=== PATIENT | female | born 1985 | race Caucasian/White ===

== ENCOUNTER 2019-11-08 18:44 | Emergency (ER) | payer OTHER, SELFPAY ==
--- NOTE | ~2019-11-08 | XR_ITS ---
EXAMINATION: XR chest 2V DATE: 11/08/2019 18:54 INDICATION: Cough and shortness of breath TECHNIQUE: PA and lateral views of the chest are obtained. COMPARISON: 12/20/2018 FINDINGS: There are minimal airspace opacities of the lung bases. There is no pleural effusion or pne umothorax. The cardiomediastinal silhouette is normal. The visualized bones and soft tissues are unre markable. IMPRESSION: 1. Mild bibasilar airspace opacity, consistent with atelectasis versus pneumonia. Reviewed, dictated and finalized at location A. IMPRESSION: 1. Mild bibasilar airspace opacity, consistent with atelectasis versus pneumoni a.
[2019-11-08 19:02] VITALS: BP 133/88; PULSE 92; RESP 20; TEMP 37.8; O2SAT 97
--- NOTE | 2019-11-08 19:24 | ED.URI ---
HPI - URI/Sore Throat General Chief Complaint: Upper Respiratory Infection Stated Complaint: sob Time Seen by Provider: 11/08/19 19:05 Source: patient and RN notes reviewed Mode of arrival: ambulatory Limitations: no limitations History of Present Illness HPI Narrative: Patient presents today with a 5-day history of mild cough, chest discomfort, shortness of breath. Her main complaint is shortness of breath that seems to worsen at night. She denies a fever and states she has been checking it twice daily. Temp upon arrival was 100.1. She believed that her shortness of breath may be linked to anxiety, but wanted to come in and get checked because it has been persistent. She reports history of asthma in the past, but states she has not had to use an inhaler for approximately 6 years, until recently. History of pneumonia in the past. She has not been trying any [id number] medications prior to arrival. Patient works for an [employer] and states she has been attending work daily. Reports they are evaluating for shortness of breath/fever when she goes to work, but she has not been telling anyone that she has been short of breath because she thought her symptoms were due to anxiety. MD elicited complaint: cough and other (Shortness of breath) Related Data Home Medications Medication Instructions Recorded Confirmed albuterol sulfate 1 inh INHALATION QID PRN 11/08/19 11/08/19 omeprazole 20 mg PO DAILY 11/08/19 11/08/19 Allergies Allergy/AdvReac Type Severity Reaction Status Date / Time Penicillins Allergy Unknown Hives Verified 11/08/19 19:00 Review of Systems Review of Systems: Narrative: CONSTITUTIONAL: Denies fever, chills, or sweats.+ Body aches EYES: Denies visual changes, redness, or discharge. ENT: Denies rhinorrhea, congestion, sore throat, or otalgia. CARDIOVASCULAR: Denies chest pain, palpitations, or edema. RESPIRATORY: + Mild cough, shortness of breath, chest wall pain. GASTROINTESTINAL: Denies abdominal pain, nausea, vomiting, or diarrhea. GENITOURINARY: Denies dysuria or hematuria. SKIN: Denies rash, itching, or wounds. MUSCULOSKELETAL: Denies back pain, joint pain, or myalgia. NEUROLOGIC: Denies headache, numbness, tingling, or weakness. PSYCH: Denies depression or anxiety. PMFSH Comments At time of signature, I have reviewed and agree with nursing past medical, surgical, social and family history unless otherwise noted. Please see nursing chart for further information. There is no relevant family history pertinent to the presenting complaint Exam Narrative: Exam Narrative: GENERAL: Well-appearing, well-nourished, and in no acute distress. HEAD: Normocephalic, atraumatic. EYES: EOMI. No redness or drainage. Conjunctivae normal. ENT: Mucous membranes pink and moist. Nares clear. No rhinorrhea. TMs normal bilaterally. Throat normal. Uvula midline. NECK: Normal AROM. Supple. No lymphadenopathy. CHEST: No respiratory distress. Mildly diminished in the bilateral bases. Patient's breathing is comfortable and she is able to speak in complete sentences for extended periods of time without distress. Chest is nontender. HEART: Regular rate and rhythm. No murmur appreciated. Normal peripheral pulses. MUSCULOSKELETAL: No bony tenderness. EXTREMITIES: Normal range of motion. No edema. SKIN: Warm, dry, no rash. Capillary refill normal. Normal skin turgor. NEURO: No focal deficits. Alert and oriented x3. Gait steady. PSYCH: Anxious and tearful. Course Vital Signs Vital signs: Vital Signs Temperature 100.1 F H 11/08/19 19:02 Pulse Rate 92 11/08/19 19:02 Respiratory Rate 11/08/19 19:02 Blood Pressure 133/88 11/08/19 19:02 Pulse Oximetry 97 11/08/19 19:02 Temperature 100.1 F H 11/08/19 19:02 Pulse Rate 92 11/08/19 19:02 Respiratory Rate 20 11/08/19 19:02 Blood Pressure 133/88 11/08/19 19:02 Pulse Oximetry 97 11/08/19 19:02 Reviewed. Pt has been instructed t
== END 2019-11-08 19:35 | disposition home or self-care (01) ==
PROVIDERS: Emergency Provider Nurse Practitioner
DX: J18.1 Lobar pneumonia, unspecified organism (principal); J45.909 Unspecified asthma, uncomplicated; K21.9 Gastro-esophageal reflux disease without esophagitis
CPT/HCPCS: 71046; 99213; G0463

== ENCOUNTER 2019-11-09 11:44 | Outpatient (NON) | payer OTHER, SELFPAY ==
[2019-11-10 22:44] LABS: Pan-SARS RNA: NEGATIVE (NEGATIVE); SARS-CoV-2 RNA: NEGATIVE (NEGATIVE)
== END 2019-11-09 11:45 ==
PROVIDERS: Visit Provider Nurse Practitioner
DX: R09.89 Other specified symptoms and signs involving the circulatory and respiratory systems (principal)
CPT/HCPCS: 87635; U0002

== ENCOUNTER 2020-03-06 03:45 | Emergency (ER) | payer OTHER, SELFPAY ==
--- NOTE | ~2020-03-06 | XR_ITS ---
EXAMINATION: XR chest 1V portable INDICATION: Fever and shortness of breath TECHNIQUE: Portable AP chest at 0431 hours COMPARISON: 11/08/2019 FINDINGS: There are minimal airspace opacities of the right lung base. No pleural effusion or pneumot horax identified. The cardiomediastinal silhouette is normal. IMPRESSION: 1. Minimal right basilar airspace opacity, consistent with atelectasis versus pneumonia. Reviewed, dictated and finalized at location A. IMPRESSION: 1. Minimal right basilar airspace opacity, consistent with atelectasis versus p neumonia.
[2020-03-06 03:49] VITALS: BP 130/65; PULSE 129; RESP 20; TEMP 38.1; O2SAT 98
--- NOTE | 2020-03-06 04:04 | ECG_ITS ---
Measurements Intervals [place] Rate: 116 P: 75 WI: 138 QRS: 54 QRSD: 91 T: 12 QT: 347 QTc: 483 Interpretive Statements SINUS TACHYCARDIA BORDERLINE ST ABNORMALITY- ANTEROLAT/INF LEADS BASELINE ARTIFACT- I, II ABNORMAL ECG Electronically Signed On 03-06-2020 9:59:26 CDT by Darrel Bernstein D.O.
[2020-03-06 04:14] VITALS: RESP 17; O2SAT 98
[2020-03-06 04:30] LABS: Basophils Percent Auto 0.6 % (0.2-1.2); Eosinophils Percent Auto 0.2 % (0-4.4); Hematocrit 31.8 % (37.0-47.0); Hemoglobin 10.4 g/dL (12.0-15.0); Immature Granulocyte Absolute 0.02 K/mm3 (0.00-0.031); Immature Granulocyte Percent A 0.4 % (0-0.5); Lymphocytes Absolute Auto 0.27 K/mm3 (0.9-3.2); Lymphocytes Percent Auto 5.2 % (18.3-44.2); Mean Corpuscular HGB Conc 32.7 g/dl (32-36); Mean Corpuscular Hemoglobin 28.9 pg (26-34); Mean Corpuscular Volume 88.3 fl (80-100); Mean Platelet Volume 10.1 fl (7.4-10.4); Monocytes Absolute Auto 0.4 K/mm3 (0.1-0.6); Monocytes Percent Auto 8.1 % (2.6-8.5); Neutrophils Absolute Auto 4.4 K/mm3 (1.3-6.7); Neutrophils Percent Auto 85.5 % (45.5-73.1); Platelet Count Result 219 k/mm3 (150-375); Red Cell Distribution Width 14.4 % (11.5-14.5); White Blood Count 5.2 K/mm3 (4.5-10.0)
[2020-03-06 04:42] LABS: Anion Gap 11.3 mmol/L (7-16); Blood Urea Nitrogen 9 mg/dL (7-17); Calcium 8.8 mg/dL (8.4-10.2); Carbon Dioxide 22 mmol/L (22-30); Chloride 106 mmol/L (98-107); Estimated CRCL calculation 117 ml/min; Estimated Glomerular Filt Rate > 60; Glucose 116 mg/dL (65-105); Potassium 3.3 mmol/L (3.4-5.0); Sodium 136 mmol/L (137-145)
[2020-03-06 05:28] VITALS: BP 99/58; PULSE 97; RESP 15; TEMP 37.4; O2SAT 96
--- NOTE | 2020-03-06 05:40 | ED.FEVER ---
HPI - Fever General Chief Complaint: Fever Stated Complaint: fever Time Seen by Provider: 03/06/20 05:30 History of Present Illness HPI Narrative: Patient presents with fever and cough for 2 days. 2 months ago she had bilateral pneumonia. She has a history of asthma. She has a new inhaler. Her cough is not productive. She said her fever was 105, but the record says 100.5. She has some shortness of breath with this. 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 She does not smoke cigarettes, drink alcohol, or do drug. Surgical history of tubal ligation. MD elicited complaint: fever Pertinent past history: other (Recent pneumonia) Onset (ago): day(s) Exacerbating factors: nothing Relieving factors: nothing Associated symptoms: myalgias and shortness of breath Treatments prior to arrival fever: none Related Data Home Medications Medication Instructions Recorded Confirmed albuterol sulfate 1 inh INHALATION QID PRN 11/08/19 11/08/19 omeprazole 20 mg PO DAILY 11/08/19 11/08/19 Allergies Allergy/AdvReac Type Severity Reaction Status Date / Time Penicillins Allergy Unknown Hives Verified 03/06/20 03:51 Review of Systems Review of Systems: Narrative: CONSTITUTIONAL: Denies fever, chills, or sweats. EYES: Denies visual changes, redness, or discharge. ENT: Denies rhinorrhea, congestion, sore throat, or otalgia. CARDIOVASCULAR: Denies chest pain, palpitations, or edema. RESPIRAtory: She has cough and dyspnea. GASTROINTESTINAL: Denies abdominal pain, nausea, vomiting, or diarrhea. GENITOURINARY: Denies dysuria or hematuria. SKIN: Denies rash or itching. MUSCULOSKELETAL: Denies back pain, joint pain, but she does have myalgia. NEUROLOGIC: Denies headache, numbness, or weakness. . All systems reviewed & are unremarkable except as noted in HPI and below PMFSH Past Medical History Medical History Pneumonia Surgical History Surgical History (Updated 03/06/20 @ 05:43 by Antonette Yuan MD) History of tubal ligation Social History Social History (Updated 03/06/20 @ 05:43 by Antonette Yuan MD) Smoking status: Never smoker Alcohol intake: never Substance use: never Exam Narrative: Exam Narrative: GENERAL: Well-appearing, well-nourished, and in no acute distress. HEAD: Normocephalic, atraumatic. EYES: PERRLA and EOMI. ENT: Nares clear, no rhinorrhea or epistaxis. Mucous membranes moist. NECK: Supple. CHEST: Clear to auscultation. No respiratory distress. No wheezes HEART: Regular rate and rhythm. No murmur heard. Normal peripheral pulses. ABDOMEN: Soft, nontender, nondistended, normal active bowel sounds. EXTREMITIES: Normal range of motion. No edema. SKIN: Warm, dry, no rash. NEURO: No focal deficits. Alert and oriented x3. PSYCH: Normal mood and affect. Course Vital Signs Vital signs: Vital Signs Temperature 100.5 F H 03/06/20 03:49 Pulse Rate 129 H 03/06/20 03:49 Respiratory Rate 20 03/06/20 03:49 Blood Pressure 130/65 03/06/20 03:49 Pulse Oximetry 98 03/06/20 03:49 Temperature 99.3 F 03/06/20 05:28 Pulse Rate 97 03/06/20 05:28 Respiratory Rate 15 03/06/20 05:28 Blood Pressure 99/58 L 03/06/20 05:28 Pulse Oximetry 96 03/06/20 05:28 MDM - Fever Differential Diagnosis Differential diagnosis: Likely other (Pneumonia) Medical Records Attestation: I reviewed the patient's medical records. Lab Data Attestation: I reviewed the patient's lab results. Result diagrams: 03/06/20 04:10 03/06/20 04:10 Labs: Lab Results 03/06/20 03/06/20 Range/Units 04:10 04:10 WBC 5.2 (4.5-10.0) K/mm3 RBC 3.60 L (4.2-5.4) M/mm3 Hgb 10.4 L (12.0-15.0) g/dL Hct 31.8 L (37.0-47.0) % MCV 88.3 (80-100) fl MCH 28.9 (26-34) pg MCHC 32.7 (32-36) g/dl RDW 14.4 (11.5-14.5) % Plt Count 219 (150-375) k/mm3 MPV 10.1 (7.4-10.4) fl Immature Gran % (Auto) 0.4 (0-0.5)
[2020-03-06 05:54] VITALS: BP 102/95; PULSE 100; RESP 23; TEMP 37.2; O2SAT 94
== END 2020-03-06 05:55 | disposition home or self-care (01) ==
PROVIDERS: Emergency Provider Emergency Medicine
DX: J18.9 Pneumonia, unspecified organism (principal)
CPT/HCPCS: 36415; 71045; 80048; 85025; 87804; 93005; 99283; A9270

== ENCOUNTER 2020-03-09 15:03 | Emergency (ER) | payer OTHER, SELFPAY ==
--- NOTE | ~2020-03-09 | XR_ITS ---
EXAMINATION: XR chest 1V portable INDICATION: Shortness of breath and cough, COVID 19 positive TECHNIQUE: Portable AP chest at 1551 hours COMPARISON: 03/06/2020 FINDINGS: Right basilar airspace opacities persist without significant change. Minimal left basilar a irspace opacity is developed. There is no pleural effusion or pneumothorax. The cardiomediastinal naty houette is normal. IMPRESSION: 1. Bibasilar airspace opacities, likely COVID 19 pneumonia given clinical history. Reviewed, dictated and finalized at location B. IMPRESSION: 1. Bibasilar airspace opacities, likely COVID 19 pneumonia given clinical histo ry.
[2020-03-09 15:11] VITALS: BP 128/83; PULSE 99; RESP 20; TEMP 37.8; O2SAT 100
[2020-03-09 15:17] VITALS: PULSE 100
--- NOTE | 2020-03-09 15:17 | ECG_ITS ---
Measurements Intervals [place] Rate: 93 P: 69 ND: 136 QRS: 44 QRSD: 83 T: 23 QT: 338 QTc: 421 Interpretive Statements SINUS RHYTHM BORDERLINE ST-T WAVE ABNORMALITY- INFERIOR LEADS BASELINE ARTIFACT- I, II, AVR, AVL, V4-V6 BORDERLINE ECG Electronically Signed On 03-09-2020 15:50:57 CDT by Darrel Bernstein D.O.
[2020-03-09 15:46] LABS: Basophils Percent Auto 0.5 % (0.2-1.2); Hematocrit 34.8 % (37.0-47.0); Hemoglobin 11.1 g/dL (12.0-15.0); Immature Granulocyte Absolute 0.01 K/mm3 (0.00-0.031); Immature Granulocyte Percent A 0.2 % (0-0.5); Lymphocytes Percent Auto 16.5 % (18.3-44.2); Mean Corpuscular HGB Conc 31.9 g/dl (32-36); Mean Corpuscular Hemoglobin 28.8 pg (26-34); Mean Corpuscular Volume 90.2 fl (80-100); Mean Platelet Volume 9.6 fl (7.4-10.4); Monocytes Absolute Auto 0.2 K/mm3 (0.1-0.6); Monocytes Percent Auto 5.4 % (2.6-8.5); Neutrophils Absolute Auto 3.3 K/mm3 (1.3-6.7); Neutrophils Percent Auto 77.4 % (45.5-73.1); Platelet Count Result 238 k/mm3 (150-375); Red Blood Count 3.86 M/mm3 (4.2-5.4); Red Cell Distribution Width 14.8 % (11.5-14.5); White Blood Count 4.2 K/mm3 (4.5-10.0)
[2020-03-09 15:59] LABS: D Dimer 1.05 ug/mL (<0.48)
[2020-03-09 16:02] LABS: Alanine Aminotransferase 23 U/L (4-35); Albumin Level 4.2 g/dL (3.5-5.1); Alkaline Phosphatase 38 U/L (38-126); Anion Gap 10 mmol/L (8-16); Aspartate Amino Transferase 25 U/L (14-36); Bilirubin,Total 0.3 mg/dL (0.2-1.3); Blood Urea Nitrogen 7 mg/dL (7-17); CRP 0.7 mg/dL (<1.0); Calcium 8.4 mg/dL (8.4-10.2); Carbon Dioxide 24 mmol/L (22-30); Chloride 104 mmol/L (98-107); Estimated CRCL calculation 116 ml/min; Estimated Glomerular Filt Rate > 60; Glucose 84 mg/dL (65-105); Potassium 3.8 mmol/L (3.4-5.0); Sodium 138 mmol/L (137-145)
--- NOTE | 2020-03-09 16:39 | ED.SOB ---
HPI - SOB/Dyspnea General Chief Complaint: Shortness of Breath/Dyspnea Stated Complaint: SOB, Positive COVID Time Seen by Provider: 03/09/20 15:06 History of Present Illness HPI Narrative: Patient is a 34-year-old female who presents the ER with cough and shortness of breath. Patient was diagnosed with pneumonia several days ago and started on azithromycin. Subsequently she was tested for COVID-19 and tested positive. She received results today. Doctor's office thought that she was coughing frequently and wanted her to be evaluated in the ER. Patient has been using her albuterol at home. No chest pain or chest pressure. No loss of consciousness. Patient reports exertional fatigue and shortness of breath. Related Data Home Medications Medication Instructions Recorded Confirmed albuterol sulfate 1 inh INHALATION QID PRN 11/08/19 11/08/19 omeprazole 20 mg PO DAILY 11/08/19 11/08/19 Allergies Allergy/AdvReac Type Severity Reaction Status Date / Time Penicillins Allergy Unknown Hives Verified 03/09/20 15:18 Review of Systems Review of Systems: All systems reviewed & are unremarkable except as noted in HPI and below Constitutional: Constitutional: Reports chills, Reports fatigue, Reports fever(s) and Reports weakness Cardiovascular: Cardiovascular: Denies chest pain and Denies radiating jaw, neck or arm pain Respiratory: Respiratory: Reports chest congestion, Reports cough, Reports dyspnea and Denies wheezing Gastrointestinal: Gastrointestinal: Denies abdominal pain, Denies nausea and Denies vomiting PMFSH Past Medical History Medical History (Updated 03/09/20 @ 17:13 by Venancio Schaffer MD) Asthma Pneumonia Surgical History Surgical History (Updated 03/06/20 @ 05:43 by Antonette Yuan MD) History of tubal ligation Social History Social History (Updated 03/06/20 @ 05:43 by Antonette Yuan MD) Smoking status: Never smoker Alcohol intake: never Substance use: never Gender identity (if verbalized by the patient): Female Exam Narrative: Exam Narrative: GENERAL: Uncomfortable-appearing, well-nourished, and in no acute distress. HEAD: Normocephalic, atraumatic. ENT: Mucous membranes moist. CHEST: Clear to auscultation. Frequent coughing. HEART: Regular rate and rhythm. Normal peripheral pulses. ABDOMEN: Soft, nontender, nondistended. EXTREMITIES: Normal range of motion. No edema. NEURO: Alert and oriented x3. PSYCH: Normal mood and affect. Course Course Emergency Course: D-dimer elevated which is expected as an inflammatory marker and cover pneumonia. Otherwise labs unremarkable. Patient without hypoxia when exerting herself in the room jogging. Discharge home. Vital Signs Vital signs: Vital Signs Temperature 100.1 F H 03/09/20 15:11 Pulse Rate 99 03/09/20 15:11 Respiratory Rate 20 03/09/20 15:11 Blood Pressure 128/83 03/09/20 15:11 Pulse Oximetry 100 03/09/20 15:11 Temperature 100.1 F H 03/09/20 15:11 Pulse Rate 75 03/09/20 17:01 Respiratory Rate 18 03/09/20 17:01 Blood Pressure 128/84 03/09/20 17:01 Pulse Oximetry 100 03/09/20 17:01 MDM - SOB/Dyspnea Lab Data Result diagrams: 03/09/20 15:39 03/09/20 15:39 Labs: Lab Results 03/09/20 03/09/20 03/09/20 Range/Units 15:39 15:39 15:39 WBC 4.2 L (4.5-10.0) K/mm3 RBC 3.86 L (4.2-5.4) M/mm3 Hgb 11.1 L (12.0-15.0) g/dL Hct 34.8 L (37.0-47.0) % MCV 90.2 (80-100) fl MCH 28.8 (26-34) pg MCHC 31.9 L (32-36) g/dl RDW 14.8 H (11.5-14.5) % Plt Count 238 (150-375) k/mm3 MPV 9.6 (7.4-10.4) fl Immature Gran % (Auto) 0.2 (0-0.5) % Neut % (Auto) 77.4 H (45.5-73.1) % Lymph % (Auto) 16.5 L (18.3-44.2) % [place] % (Auto) 5.4 (2.6-8.5) % Eos % (Auto) 0.0 (0-4.4) % Baso % (Auto) 0.5 (0.2-1.2) % Lymph # (Auto) 0.70 L (0.9-3.2) K/mm3 [place] # (Auto) 0.2 (0.1-0.6) K/mm3 Eos # (Auto) 0.0 (0
[2020-03-09 17:01] VITALS: BP 128/84; PULSE 75; RESP 18; O2SAT 100
[2020-03-09 17:31] VITALS: BP 123/86; PULSE 96; RESP 22; O2SAT 97
== END 2020-03-09 17:33 | disposition home or self-care (01) ==
PROVIDERS: Emergency Provider Emergency Medicine
DX: U07.1 COVID-19 (principal); J12.89 Other viral pneumonia; J45.909 Unspecified asthma, uncomplicated; R94.31 Abnormal electrocardiogram [ECG] [EKG]
CPT/HCPCS: 36415; 71045; 80053; 83605; 85025; 85380; 86140; 93005; 99283

== ENCOUNTER 2020-04-03 11:52 | Outpatient (CLI) | payer OTHER, SELFPAY ==
--- NOTE | ~2020-04-03 | CT_ITS ---
EXAMINATION: CTA chest PE protocol DATE: 04/03/2020 12:41 INDICATION: Shortness of breath. TECHNIQUE: Computed tomography angiography (CTA) of the chest was performed with 100 mL Omnipaque-350 intravenous contrast timed to evaluate the pulmonary arteries. Coronal maximum intensity projection 3D-reconstructions were created by the technologist. Automated exposure control and iterative reconst ruction technique were employed. The dose-length product was 354.83 mGy-cm. COMPARISON: None. FINDINGS: There are mild groundglass opacities in the lower lobes. No pleural effusion. The heart siz e is normal. No pericardial effusion. There is no pulmonary embolus. There is mild thoracic spondylos is. IMPRESSION: 1. No pulmonary embolus. 2. Mild groundglass opacities in the lower lobes, consistent with COVID-19 pneumonia. Reviewed, dictated and finalized at location A. IMPRESSION: 1. No pulmonary embolus. 2. Mild groundglass opacities in the lower lobes, consistent with COVID-19 pneu monia.
== END 2020-04-03 11:53 | disposition home or self-care (01) ==
PROVIDERS: PCP Student in an Organized Health Care Education/Training Program; Visit Provider Student in an Organized Health Care Education/Training Program
DX: R06.02 Shortness of breath (principal); J18.9 Pneumonia, unspecified organism; R91.8 Other nonspecific abnormal finding of lung field
CPT/HCPCS: 71275; Q9967

== ENCOUNTER → 2020-10-30 00:09 | Outpatient (CLI) | payer OTHER, SELFPAY ==
[2020-10-30 18:31] LABS: SARS-CoV-2 RNA PCR Negative
== END ==
PROVIDERS: PCP Student in an Organized Health Care Education/Training Program; Visit Provider Surgery
DX: Z01.812 Encounter for preprocedural laboratory examination (principal); Z20.822 Contact with and (suspected) exposure to COVID-19
CPT/HCPCS: C9803; U0003; U0005

== ENCOUNTER 2020-11-02 04:29 | Day surgery (SDC) | payer OTHER, SELFPAY ==
[2020-10-23 08:44] VITALS: BMI 31.8
[2020-11-02 09:34] VITALS: BP 125/74; PULSE 75; RESP 20; TEMP 36.9; O2SAT 99
[2020-11-02] MEDS: KETOROLAC 15 MG/ML VIAL (*BKC) IV PUSH (09:50)
[2020-11-02] MEDS: ACETAMINOPHEN 500 MG TABLET 1000 MG PO (09:50)
[2020-11-02] MEDS: LACTATED RINGERS 1,000 ML 30 ML IV CONT (09:50)
--- NOTE | 2020-11-02 10:06 | WPDHPUPDATE1 ---
History and Physical Update Update Date/Time: 11/02/20 10:06 History and Physical has been reviewed, including an updated exam of the patient. There are NO changes in the patient's condition. Risks, benefits, and alternatives have been discussed and questions answered. Patient agrees to proceed with procedure.
--- NOTE | 2020-11-02 10:31 | WPDANESEPPF ---
Anes - Initial Pre Proc Eval Procedure: Operation Date: 11/02/20 11:30 Proposed Procedures p Lateral Internal Sphincterotomy - Patrick Yu MD Date/Time: 11/02/20 10:31 Surgeon: Patrick Yu MD Pre Op Diagnosis: anal fissure Patient Data Age: 35 Gender: F Height: 5 ft 5 in Weight: 85.4 kg Last Vital Signs Temp 36.9 C 11/02/20 09:34 Pulse 75 11/02/20 09:34 Resp 20 11/02/20 09:34 BP 125/74 11/02/20 09:34 Pulse Ox 99 11/02/20 09:34 Allergies Allergy/AdvReac Type Severity Reaction Status Date / Time Penicillins Allergy Mild Rash Verified 11/02/20 09:39 Home Medications Medication Instructions Recorded Confirmed Type albuterol sulfate 1 inh INHALATION QID PRN 11/08/19 10/23/20 History inhalational spacing device #1 each 11/08/19 10/01/20 Rx [BreatheRite MDI Spacer] omeprazole 20 mg PO DAILY 11/08/19 10/23/20 History Patient hx anesthesia problems: none Family hx anesthesia problems: none PMFSH Past Medical History Medical History Anal fissure Asthma GERD (gastroesophageal reflux disease) History of EKG Pneumonia Surgical History Surgical History History of History of tubal ligation Family History Family History Other Heart disease Cerebrovascular accident Hypertension Social History Social History Smoking status: Never smoker Alcohol intake: never Substance use: never Living arrangements: with family 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 Gender identity (if verbalized by the patient): Female Spiritual care concerns: No Anes - Eval Final PreProcedure Day of Procedure 11/02/20 10:31 Patient weight: obese Heart: regular rate and rhythm Lungs: clear to auscultation Airway: Mallampati scale class II Neurological: alert and oriented Last oral intake: >/= 8 hours ASA classification: II Emergent: no Anesthetic plan: proceed Anesthesia type and monitoring: general (givs vs ett) GIVS and ETT and standard monitoring Informed Consent: The patient's anesthetic plan and its attendant risks and benefits were discussed with the patient/family/POA. Questions were solicited and answers provided to the satisfaction of the patient/family/POA.
--- NOTE | 2020-11-02 11:27 | PM.PROC ---
Procedure Note - Detailed Date of procedure: 11/02/20 Pre-op diagnosis: anal fissure Anal fissure Post-op diagnosis: same Procedure performed: Lateral internal sphincterotomy Description of procedure: Patient was taken to surgery and IV sedation was administered. She was placed in prone gus-knife position. The buttocks were taped apart. Prep and drape was carried out. Local anesthesia was infiltrating used 10 cc deep subdermal and 20 cc intra- sphincteric. A medium [place] Phan anoscope were introduced and the posterior midline anal fissure was noted. The spastic lower 3rd of the internal sphincter muscle at the left lateral position was noted. A small incision was made over this sphincter muscle with the cautery. Then, using a curved clamp, I pulled the lower 3rd of the internal sphincter muscle up into the wound. It was divided with the cautery. There was no bleeding. We checked the area again. All looked quite good. No other anal canal pathology was noted. The rectal area was dressed with Xeroform gauze fluffs and promise panties. The patient was returned to a supine position awakened and taken to recovery in good condition. Counts were correct x2. Anesthesia: MAC and local (0.5% Marcaine with Exparel) Surgeon: Patrick Yu MD Command Center Officer: Darrell SÁNCHEZ Estimated blood loss (mL): 5 Drains: No Packing: No Pathology: none sent Complications: None Condition: stable Disposition: same day Findings: Posterior midline anal fissure
--- NOTE | 2020-11-02 11:32 | PM.SD2 ---
Same Day Admit/Disch: HPI History of Present Illness Chief complaint: anal fissure Narrative: Khadijah Alarcon is a 35 year old female who has failed conservative treatment for posterior midline anal fissure. She is taken to surgery now for lateral internal sphincterotomy. 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 Gender identity (if verbalized by the patient): Female Spiritual care concerns: No Same Day Admit/Disch: Med Pre-admit Medications Home Medications Medication Instructions Recorded Confirmed Type BreatheRite MDI Spacer #1 each 11/08/19 10/01/20 Rx albuterol sulfate 1 inh INHALATION QID PRN 11/08/19 10/23/20 History omeprazole 20 mg PO DAILY 11/08/19 10/23/20 History hydrocodone-acetaminophen 1 - 2 tablet PO Q6H PRN #7 tablet 11/02/20 Rx ketorolac 10 mg PO Q6H 4 Days #16 tablet 11/02/20 Rx Exam Const: General: comfortable, no acute distress, alert and awake HENMT: Head: normocephalic and atraumatic Mouth: Yes Normal oral and palatal mucosa present Eyes: Conjunctivae: conjunctivae normal Pupils: Equal, round and reactive pupils present EOM: EOMs intact bilaterally Neck: Neck: normal visual inspection, no lymphadenopathy and nontender Resp: Effort & Inspection: normal respiratory effort Auscultation: clear to auscultation bilaterally Cardio: Rate: regular rate Rhythm: regular rhythm Heart sounds: no gallops, no murmurs and no rubs GI: Inspection: non-distended GI Palp: Yes Soft to palpation, No Tenderness to palpation present (GI), No Hepatomegaly present and No Splenomegaly present Rectal Exam: abnormal sphincter tone increased (Tender), Anal fissure(s) present (Posterior midline anal ulcer) and tenderness Skin: Lesions: no lesions Rashes: no rashes Neuro: General: no focal motor deficits and CN's II-XI intact bilaterally Cranial nerves: Yes Equal, round and reactive pupils present, Yes Bilaterally intact EOM present, Yes facial symmetry and Yes Midline tongue present Speech: normal speech Motor exam (neuro): 5/5 motor strength present throughout and Motor abnormalities not present Extrem: General: no clubbing, cyanosis or edema and edema Psych: Affect: normal affect Thought process: Normal thought process present Insight: Good insight present (Psych) DS: Summary Time Spent with Patient Time attestation: Total time spent providing and/or coordinating discharge services: DS: Admitting Diagnosis Admitting Diagnosis Admitting Diagnosis: Anal fissure-patient has had extensive course of smooth muscle relaxants and bulk fiber supplements. She is taken to surgery now for lateral internal sphincterotomy. The procedure the risks the benefits have been discussed with the patient. She understands and agrees to go ahead. 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 Yu 1. May discharge from Outpatient Surgery area or Surgical Floor when stable per protocol. 2. Activity: Remove dressing and start Sitz baths in a.m. following surgery. Once at home,
[2020-11-02] MEDS: ceFAZolin 2 GM/D5W 50 ML 2 GM/50 ML BAG IVPB (11:39)
[2020-11-02 12:06] VITALS: BP 122/71; PULSE 87; RESP 16
[2020-11-02] MEDS: BUPIVACAINE HCL 0.5% PF 30 ML VIAL INFILTRATE (12:12)
[2020-11-02 12:35] VITALS: BP 114/71; PULSE 67; RESP 16
[2020-11-02 13:10] VITALS: BP 115/69; PULSE 52; RESP 16
[2020-11-02 13:30] VITALS: BP 111/55; PULSE 70; RESP 16
== END 2020-11-02 13:40 | disposition home or self-care (01) ==
PROVIDERS: PCP Student in an Organized Health Care Education/Training Program; Visit Provider Surgery
PROC: (CPT 46080; principal; 2020-11-02 11:30)
DX: K60.2 Anal fissure, unspecified (principal); Z79.51 Long term (current) use of inhaled steroids; J45.909 Unspecified asthma, uncomplicated; K21.9 Gastro-esophageal reflux disease without esophagitis; E66.9 Obesity, unspecified; Z68.31 Body mass index [BMI] 31.0-31.9, adult
CPT/HCPCS: 46080; A9270; C9290; C9803; J0690; J1100; J1885; J2250; J2405; J2704; J3010; J7120; U0003; U0005

== ENCOUNTER 2020-12-10 23:55 | Emergency (ER) | payer OTHER, SELFPAY ==
[2020-12-11 00:06] VITALS: BP 132/78; PULSE 98; RESP 16; TEMP 36.3; O2SAT 100
--- NOTE | 2020-12-11 00:46 | ED.URI ---
HPI - URI/Sore Throat General Chief Complaint: Upper Respiratory Infection Stated Complaint: throat pain Time Seen by Provider: 12/11/20 00:02 Source: patient Mode of arrival: ambulatory Limitations: no limitations History of Present Illness HPI Narrative: Patient is a 35-year-old female who presents for evaluation of sore throat. Patient states her throat became very sore this evening and she felt like she was having trouble swallowing. She also reports right ear pain without right ear discharge or difficulty hearing. Patient denies current shortness of breath or chest pain. No tongue swelling or facial swelling. Patient states she felt if she had a borderline fever earlier this evening. No vomiting. She is tolerating her secretions. She can open her mouth fully without pain. No rhinorrhea, loss of sense of taste or smell, abdominal pain or diarrhea. She had Covid in March 2020, did monitor her oxygen levels at home but did not require hospitalization. She has been vaccinated. No recent sick contacts. Related Data Home Medications Medication Instructions Recorded Confirmed albuterol sulfate 1 inh INHALATION QID PRN 11/08/19 12/06/20 omeprazole 20 mg PO DAILY 11/08/19 12/06/20 psyllium husk 0.52 gram capsule 0.52 g PO DAILY 11/12/20 12/06/20 Allergies Allergy/AdvReac Type Severity Reaction Status Date / Time Penicillins Allergy Mild Rash Verified 11/26/20 10:21 [facility], [facility] Past Medical History Medical History Anal fissure Asthma GERD (gastroesophageal reflux disease) History of EKG Pneumonia Surgical History Surgical History H/O rectal sphincterotomy Lateral internal sphincterotomy History of History of tubal ligation Family History Family History Other Heart disease Cerebrovascular accident Hypertension Social History Social History Alcohol intake: never Substance use: never 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 EYES: PERRLA and EOMI. ENT: Nares clear, no rhinorrhea or epistaxis. Mucous membranes moist. Tonsils are edematous and erythematous bilaterally without exudate. Uvula is midline. No stridor. No trismus. No evidence of FENCE POST [employer]IVER. Patient tolerating her secretions. Right TM with mild erythema, light reflex intact, no bulging or perforation. Left tympanic membrane normal without erythema, bulging or perforation. NECK: Supple. Bilateral submandibular lymphadenopathy. No firmness or rigidity to the lymph nodes. CHEST: No respiratory distress, breathing even and non labored HEART: Regular rate, sinus rhythm ABDOMEN:Non distended, non tender EXTREMITIES: Normal range of motion. No edema. SKIN: Warm, dry, no rash. NEURO:No focal deficits. Alert and oriented x3 MDM - URI/Sore Throat MDM Narrative Medical decision making narrative: Patient presented for evaluation of sore throat. At the time of assessment, ABCs are intact and vital signs are stable. No respiratory distress. No sign of angioedema or peritonsillar abscess. Uvula is midline there is no trismus. She has evidence of pharyngitis with tonsillar erythema and edema bilaterally. There is no exudate. Given the associated lymphadenopathy in the absence of cough this is concerning for streptococcal infection. Swab is initially negative but given her symptoms I feel like we should empirically treat because clinically her criteria are consistent with this. Patient was monitored and had no other concerning features. She was able to tolerate secretions, no vomiting or respiratory distress. Patient advised t
[2020-12-11] MEDS: AZITHROMYCIN 250 MG TABLET 500 MG PO (01:07)
[2020-12-11] MEDS: KETOROLAC 30 MG/ML VIAL (*BKC) IM (01:08)
[2020-12-11 01:17] VITALS: BP 138/87; PULSE 94; RESP 16; TEMP 36.3; O2SAT 100
== END 2020-12-11 01:17 | disposition home or self-care (01) ==
PROVIDERS: Emergency Provider Emergency Medicine; PCP Student in an Organized Health Care Education/Training Program
DX: J02.9 Acute pharyngitis, unspecified (principal); J45.909 Unspecified asthma, uncomplicated; K21.9 Gastro-esophageal reflux disease without esophagitis; Z86.16 Personal history of COVID-19; Z87.01 Personal history of pneumonia (recurrent)
CPT/HCPCS: 87081; 87880; 96372; 99283; A9270; J1100; J1885

== ENCOUNTER → 2021-08-17 09:23 | Outpatient (CLI) | payer OTHER, SELFPAY ==
[2021-08-17 23:19] LABS: SARS-CoV-2 RNA PCR Positive
== END ==
PROVIDERS: PCP Student in an Organized Health Care Education/Training Program; Visit Provider Student in an Organized Health Care Education/Training Program
DX: U07.1 COVID-19 (principal)
CPT/HCPCS: C9803; U0003; U0005

== ENCOUNTER 2021-09-08 18:30 | Emergency (ER) | payer OTHER, SELFPAY ==
--- NOTE | ~2021-09-08 | CT_ITS ---
EXAMINATION: CT brain wo [facility] EXAM DATE: 09/08/2021 21:30 INDICATION: Headache, elevated blood pressure . TECHNIQUE: Spiral CT of the head was performed without contrast. Axial, coronal and sagittal images were reviewed. The dose-length product (DLP) for this examination was 605.33 mGy-cm. The exposure w as tailored according to patient size, and iterative reconstruction (ASIR) was used as additional dos e reduction technique. There is no prior study for comparison. FINDINGS: There is no acute intraparenchymal hemorrhage. No evidence of intraparenchymal brain mass lesion. No evidence of acute infarction. There is no mass effect or midline shift. The ventricles are normal in size. There are no extra-axial collections. There are no acute calvarial fractures. T he orbits are unremarkable. Soft tissue is unremarkable. The visualized sinuses and mastoid air kelly ls are well aerated. IMPRESSION: 1. No acute intracranial findings. Reviewed, dictated and finalized at location G. FILER
[2021-09-08 18:32] VITALS: BP 182/93; PULSE 87; RESP 16; TEMP 36.3; O2SAT 100
[2021-09-08 20:47] VITALS: BP 126/78; PULSE 74; RESP 16; O2SAT 100
--- NOTE | 2021-09-08 21:09 | ED.HA ---
HPI - Headache General Chief Complaint: Headache Stated Complaint: headache, high blood pressure Time Seen by Provider: 09/08/21 21:08 Source: patient Mode of arrival: ambulatory Limitations: no limitations History of Present Illness HPI Narrative: Patient is a 35-year-old female complaining of a headache, generalized, 7 out of 10, dull, nonradiating started 2 weeks ago. Patient also states that she has noticed that her blood pressures been elevated for the past few weeks, was told by her primary care physician that if her blood pressure goes up to 200s then to go to the emergency room for further evaluation and treatment. Patient states that her blood pressure was 200 over 80s tonight and that is why she came in. Patient denies any speech or visual disturbance, focal weakness or numbness, unsteady gait, chest pain, shortness of breath, abdominal pain, nausea, or vomiting. Related Data Home Medications Medication Instructions Recorded Confirmed amitriptyline 09/08/21 09/08/21 Allergies Allergy/AdvReac Type Severity Reaction Status Date / Time Penicillins Allergy Mild Rash Verified 09/08/21 20:42 Review of Systems Review of Systems: All systems reviewed & are unremarkable except as noted in HPI and below Constitutional: Constitutional: Denies body ache(s), Denies chills, Denies excessive sweating, Denies fatigue, Denies fever(s), Denies headache(s), Denies lethargy, Denies malaise, Denies weakness and Denies weight loss Eyes: Eyes: Denies blurry vision, Denies change in vision and Denies loss of vision ENT: Denies dizziness, Denies ear discharge, Denies headache(s), Denies lip swelling, Denies epistaxis, Denies nasal congestion, Denies neck pain, Denies throat swelling and Denies tongue swelling Cardiovascular: Cardiovascular: Denies chest pain, Denies chest pain at rest, Denies chest pain with activity, Denies diaphoresis, Denies rapid heart rate, Denies edema, Denies irregular heart rhythm, Denies lightheadedness, Denies palpitations, Denies dyspnea and Denies dyspnea on exertion Respiratory: Respiratory: Denies chest congestion, Denies cough, Denies hemoptysis, Denies dyspnea and Denies dyspnea on exertion Gastrointestinal: Gastrointestinal: Denies abdominal pain, Denies melena, Denies hematochezia, Denies diarrhea, Denies nausea, Denies vomiting and Denies hematemesis Musculoskeletal: Musculoskeletal: Denies abnormal gait, Denies deformity, Denies joint swelling, Denies limited range of motion, Denies neck pain and Denies numbness Neurologic: Denies Abnormal speech present, Denies abnormal gait, Denies confusion, Denies dizziness, Denies focal weakness, Denies loss of vision, Denies numbness, Denies Other visual disturbances, Denies Sensory deficit (Neuro) and Denies weakness Psychiatric: Psychiatric: Denies confusion, Denies depression, Denies auditory hallucinations, Denies homicidal ideation and Denies suicidal ideation Endocrine: Endocrine: Denies cold intolerance, Denies excessive sweating, Denies fatigue, Denies heat intolerance and Denies palpitations Hematologic/Lymphatic: Hematologic/Lymphatic: Denies easy bleeding and Denies easy bruising Allergic/Immunologic: Allergic/Immunologic: Denies lip swelling, Denies throat swelling and Denies tongue swelling PMFSH Past Medical History Medical History Anal fissure Asthma GERD (gastroesophageal reflux disease) History of EKG Pneumonia Surgical History Surgical History H/O rectal sphincterotomy Lateral internal sphincterotomy History of History of tubal ligation Family History Family History Other Heart disease Cerebrovascular accident Hypertension Social History Social History Alcohol intake: never Substance use: never
[2021-09-08] MEDS: SODIUM CHLORIDE 0.9% IV 1,000 ML 999 ML IV CONT (21:33)
[2021-09-08] MEDS: KETOROLAC 30 MG/ML VIAL (*BKC) IV PUSH (21:34)
[2021-09-08] MEDS: METOCLOPRAMIDE HCL INJ 10 MG/2 ML VIAL IV PUSH (21:34)
[2021-09-08] MEDS: diphenhydrAMINE HCl INJ 50 MG/ML VIAL 25 MG IV PUSH (21:35)
[2021-09-08 21:43] LABS: Basophils Absolute Auto 0.1 K/mm3 (0.0-0.1); Eosinophils Absolute Auto 0.2 K/mm3 (0-0.3); Hematocrit 32.9 % (37.0-47.0); Hemoglobin 10.4 g/dL (12.0-15.0); Immature Granulocyte Absolute 0.02 K/mm3 (0.00-0.031); Immature Granulocyte Percent A 0.3 % (0-0.5); Lymphocytes Absolute Auto 2.92 K/mm3 (0.9-3.2); Lymphocytes Percent Auto 37.9 % (18.3-44.2); Mean Corpuscular HGB Conc 31.6 g/dl (32-36); Mean Corpuscular Volume 91.6 fl (80-100); Mean Platelet Volume 9.7 fl (7.4-10.4); Monocytes Absolute Auto 0.5 K/mm3 (0.1-0.6); Neutrophils Percent Auto 51.8 % (45.5-73.1); Platelet Count Result 339 k/mm3 (150-375); Red Blood Count 3.59 M/mm3 (4.2-5.4); Red Cell Distribution Width 14.9 % (11.5-14.5); White Blood Count 7.7 K/mm3 (4.5-10.0)
[2021-09-08 21:57] LABS: Anion Gap 6 mmol/L (8-16); Blood Urea Nitrogen 15 mg/dL (7-17); Calcium 9.3 mg/dL (8.4-10.2); Carbon Dioxide 25 mmol/L (22-30); Chloride 106 mmol/L (98-107); Estimated Glomerular Filt Rate > 60; Glucose 96 mg/dL (65-110); Sodium 137 mmol/L (137-145)
[2021-09-08 22:29] VITALS: BP 119/69; PULSE 69; RESP 16; O2SAT 99
== END 2021-09-08 23:01 | disposition home or self-care (01) ==
PROVIDERS: Emergency Provider Emergency Medicine; PCP Student in an Organized Health Care Education/Training Program
DX: R03.0 Elevated blood-pressure reading, without diagnosis of hypertension (principal); R51.9 Headache, unspecified; K21.9 Gastro-esophageal reflux disease without esophagitis; J45.909 Unspecified asthma, uncomplicated; Z87.01 Personal history of pneumonia (recurrent)
CPT/HCPCS: 36415; 70450; 80048; 85025; 96361; 96374; 96375; 99284; J1200; J1885; J2765; J7030

== ENCOUNTER 2022-07-30 09:46 | Outpatient (CLI) | payer OTHER, SELFPAY ==
--- NOTE | ~2022-07-30 | MR_ITS ---
MRI of the lumbar spine Clinical History: Radiculopathy Technique: Axial T2-weighted images, and sagittal T1-weighted, T2-weighted, and T2 fat-sat images wer e acquired. COMPARISON: 12/04/2017 Findings: There is no fracture or subluxation of the lumbar spine. Vertebral bodies maintain normal h eight and alignment. No suspicious bone marrow signal abnormality seen. No significant disc bulge or herniation seen at any lumbar level. There is no spinal canal stenosis o r neural foraminal narrowing in the lumbar spine. There are minimal facet joint degenerative changes at L4-L5 and L5-S1. Paravertebral soft tissues are unremarkable. Impression: Minimal facet joint degenerative change at L4-L5 and L5-S1, otherwise unremarkable exam. Reviewed, dictated and finalized at location . PER Impression: Minimal facet joint degenerative change at L4-L5 and L5-S1, otherwise unremarka ble exam.
== END 2022-07-30 09:47 | disposition home or self-care (01) ==
PROVIDERS: PCP Student in an Organized Health Care Education/Training Program; Visit Provider Student in an Organized Health Care Education/Training Program
DX: M54.16 Radiculopathy, lumbar region (principal); M51.36 Other intervertebral disc degeneration, lumbar region; M51.37 Other intervertebral disc degeneration, lumbosacral region
CPT/HCPCS: 72148

== ENCOUNTER 2022-11-15 08:23 | Outpatient (CLI) | payer OTHER, SELFPAY ==
--- NOTE | 2022-11-15 | ECG_ITS ---
Measurements Intervals [place] Rate: 56 P: 53 IA: 147 QRS: 62 QRSD: 92 T: 59 QT: 400 QTc: 387 Interpretive Statements SINUS BRADYCARDIA COMPARED TO ECG 03/09/2020 15:15:37 SINUS BRADYCARDIA NOW PRESENT Electronically Signed On 11-15-2022 22:15:19 CDT by Mary Lal M.D.
== END 2022-11-15 08:24 | disposition home or self-care (01) ==
LOC: ANHIMG 08:25 → ANHCARD 08:26
PROVIDERS: PCP Student in an Organized Health Care Education/Training Program; Visit Provider Nurse Practitioner
DX: E66.9 Obesity, unspecified (principal); R00.1 Bradycardia, unspecified
CPT/HCPCS: 93005

== ENCOUNTER 2022-12-11 11:16 | Emergency (ER) | payer OTHER, SELFPAY ==
--- NOTE | ~2022-12-11 | CT_ITS ---
EXAMINATION: CT brain wo con DATE: 12/11/2022 15:13 INDICATION: Dizziness. TECHNIQUE: Computed tomography (CT) of the head was performed without intravenous contrast. The mA wa s adjusted according to patient size. Iterative reconstruction technique was employed. The dose-lengt h product was 983.67 mGy-cm. COMPARISON: Head CT 09/08/2021 FINDINGS: There is no intracranial hemorrhage, acute infarction, or abnormal intracranial mass lesion . The ventricles are normal in size. The paranasal sinuses are clear. The mastoid air cells are annelise l. The orbits are normal. IMPRESSION: 1. Normal brain. Reviewed, dictated and finalized at location E. IMPRESSION: 1. Normal brain.
--- NOTE | ~2022-12-11 | XR_ITS ---
EXAMINATION: XR chest 2V DATE: 12/11/2022 15:17 INDICATION: Dizziness with chest pain TECHNIQUE: PA and lateral views of the chest were obtained. COMPARISON: Chest radiograph dated 03/09/2020 FINDINGS: The lungs are clear with no focal airspace opacities, pulmonary edema, pleural effusion or pneumothor ax. The cardiomediastinal silhouette is normal. Mild thoracic spondylosis. IMPRESSION: 1. No acute cardiopulmonary disease. Reviewed, dictated and finalized at location A.
[2022-12-11 11:30] VITALS: BP 145/90; PULSE 105; RESP 18; TEMP 36.7; O2SAT 97
--- NOTE | 2022-12-11 11:33 | ECG_ITS ---
Measurements Intervals [place] Rate: 78 P: 73 MI: 135 QRS: 52 QRSD: 93 T: 42 QT: 377 QTc: 432 Interpretive Statements SINUS RHYTHM POSSIBLE LEFT ATRIAL ENLARGEMENT BORDERLINE ECG COMPARED TO ECG 11/15/2022 08:40:05 SINUS RHYTHM NOW PRESENT Electronically Signed On 12-11-2022 12:02:55 CDT by Darrel Bernstein D.O.
--- NOTE | 2022-12-11 11:41 | PC.NURSE ---
Patient states she feels shakey. BS 62. Given OJ, tor crackers with peanut butter.
[2022-12-11 14:21] VITALS: BP 132/71; PULSE 73; RESP 16; O2SAT 100
--- NOTE | 2022-12-11 14:33 | ED.DIZZY ---
HPI - Dizziness General Chief Complaint: Dizziness Stated Complaint: dizziness Time Seen by Provider: 12/11/22 14:26 Source: patient Mode of arrival: ambulatory Limitations: no limitations History of Present Illness HPI Narrative: Patient is a 37-year-old female with a history of asthma presenting to the emergency department for evaluation of dizziness. Patient reports intermittent dizziness for the past 2 weeks. Patient was seen by primary care provider told that she had fluid on her right ear there was given antibiotics for this. Patient also completed a steroid course. No real improvement in her symptoms. Patient denies any ear pain. She states that last night she was scared to drive home because of the dizziness. She denies any significant room spinning sensation but states that at times it is hard to focus on objects in front of her. She denies focal weakness or numbness. No difficulty with ambulation. No vision changes, nausea or vomiting. No chest pain, pleuritic pain, palpitations or shortness of breath. Patient has follow-up with ENT in January. Related Data Home Medications Medication Instructions Recorded Confirmed amitriptyline 10 mg tablet 09/08/21 09/08/21 omeprazole 40 mg capsule,delayed 40 mg PO DAILY 12/11/22 release trazodone 50 mg tablet 50 mg PO HS 12/11/22 Allergies Allergy/AdvReac Type Severity Reaction Status Date / Time Penicillins Allergy Mild Rash Verified 12/11/22 14:23 hydrocodone Allergy Other Verified 12/11/22 14:23 Review of Systems Review of Systems: CONSTITUTIONAL: Denies fever, chills, or sweats. EYES: Denies visual changes, redness, or discharge. ENT: Denies rhinorrhea, congestion, sore throat, or otalgia. Patient reports feeling of fluid in the right ear CARDIOVASCULAR: Denies chest pain, palpitations, or edema. RESPIRATORY: Denies cough or dyspnea. GASTROINTESTINAL: Denies abdominal pain, nausea, vomiting, or diarrhea. GENITOURINARY: Denies dysuria or hematuria. SKIN: Denies rash or itching. MUSCULOSKELETAL: Denies back pain, joint pain, or myalgia. NEUROLOGIC: Denies headache, numbness, or weakness. Reports intermittent dizziness, denies currently. PSYCHIATRIC: Denies anxiety or depression. 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 EYES: PERRLA and EOMI. ENT: Nares clear, no rhinorrhea or epistaxis. Mucous membranes moist. TMs are clear bilaterally without effusion, erythema, bulging. Intact light reflex bilaterally. NECK: Supple. CHEST: No respiratory distress, breathing even and non labored HEART: Regular rate, sinus rhythm ABDOMEN:Non distended, non tender EXTREMITIES: Normal range of motion. No edema. SKIN: Warm, dry, no rash. NEURO:No focal deficits. Alert and oriented x3. Finger to nose intact bilaterally. EOMs intact without nystagmus. No facial droop/asymmetry noted bilaterally. Grimace intact. Intact sensation in face. Hearing intact bilaterally. Shoulder shrug intact. Strength 5/5 bilateral upper extremities. Strength 5/5 bilateral lower ext
[2022-12-11] MEDS: SODIUM CHLORIDE 0.9% IV 1,000 ML 999 ML IV CONT (15:36)
[2022-12-11] MEDS: MECLIZINE HCL 25 MG TABLET PO (15:37)
[2022-12-11] MEDS: ONDANSETRON INJ 4 MG/2 ML VIAL IV PUSH (15:42)
[2022-12-11 15:47] LABS: Basophils Absolute Auto 0.1 K/mm3 (0.0-0.1); Basophils Percent Auto 1.1 % (0.2-1.2); Eosinophils Absolute Auto 0.2 K/mm3 (0-0.3); Hematocrit 35.5 % (37.0-47.0); Hemoglobin 11.3 g/dL (12.0-15.0); Immature Granulocyte Absolute 0.03 K/mm3 (0.00-0.031); Immature Granulocyte Percent A 0.4 % (0-0.5); Lymphocytes Absolute Auto 2.44 K/mm3 (0.9-3.2); Mean Corpuscular HGB Conc 31.8 g/dl (32-36); Mean Corpuscular Hemoglobin 29.7 pg (26-34); Mean Corpuscular Volume 93.2 fl (80-100); Mean Platelet Volume 9.1 fl (7.4-10.4); Monocytes Absolute Auto 0.5 K/mm3 (0.1-0.6); Monocytes Percent Auto 6.3 % (2.6-8.5); Neutrophils Absolute Auto 4.9 K/mm3 (1.3-6.7); Neutrophils Percent Auto 60.2 % (45.5-73.1); Platelet Count Result 323 k/mm3 (150-375); Red Blood Count 3.81 M/mm3 (4.2-5.4); Red Cell Distribution Width 14.6 % (11.5-14.5); White Blood Count 8.1 K/mm3 (4.5-10.0)
[2022-12-11 15:57] LABS: Anion Gap 5 mmol/L (8-16); Appearance Urine Clear (Clear); Bilirubin Urine Negative (Negative); Blood Urea Nitrogen 12 mg/dL (7-17); Blood Urine Negative (Negative); Calcium 8.4 mg/dL (8.4-10.2); Carbon Dioxide 31 mmol/L (22-30); Chloride 103 mmol/L (98-107); Color Urine Yellow (Yellow); Estimated CRCL calculation 113 ml/min; Estimated Glomerular Filt Rate > 60; Glucose 77 mg/dL (65-110); Glucose Urine UA Negative (Negative); Ketones Urine Negative (Negative); Leukocyte Esterase Ur Negative LEU/UL (Negative); Nitrate Urine Negative (Negative); Protein Urine Negative (Negative); Sodium 139 mmol/L (137-145); Specific Grav Ur 1.009 (1.001-1.035); Urobilinogen Urine 0.2 mg/dL (<2.0); pH Urine 7.5 (5.0-9.0)
[2022-12-11 16:01] LABS: Add Urine Microscopic? NO
[2022-12-11 16:09] LABS: Troponin I < 0.012 ng/mL (0.000-0.034)
--- NOTE | 2022-12-16 07:50 | PC.NURSE ---
late entry 12/11/22 1601 ns bolus 1000 cc infused
== END 2022-12-11 16:50 | disposition home or self-care (01) ==
PROVIDERS: Emergency Provider Emergency Medicine; PCP Student in an Organized Health Care Education/Training Program
DX: H81.21 Vestibular neuronitis, right ear (principal); J45.909 Unspecified asthma, uncomplicated; K21.9 Gastro-esophageal reflux disease without esophagitis; Z87.01 Personal history of pneumonia (recurrent); R94.31 Abnormal electrocardiogram [ECG] [EKG]
CPT/HCPCS: 36415; 70450; 71046; 80048; 81003; 81025; 84443; 84484; 85025; 93005; 96361; 96374; 99284; A9270; J2405; J7030

== ENCOUNTER 2022-12-31 09:58 | Outpatient (CLI) | payer OTHER, SELFPAY | END 2022-12-31 09:59 | disposition home or self-care (01) | LOC: ANHAUDIO 09:59 | PROVIDERS: PCP Student in an Organized Health Care Education/Training Program; Visit Provider Otolaryngology | DX: H90.6 Mixed conductive and sensorineural hearing loss, bilateral (principal); H69.80 Other specified disorders of Eustachian tube, unspecified ear; H81.10 Benign paroxysmal vertigo, unspecified ear | CPT/HCPCS: 92557; 92567 ==

== ENCOUNTER 2023-01-21 01:54 | Day surgery (SDC) | payer OTHER, SELFPAY ==
[2023-01-15 12:32] VITALS: BMI 30.6
--- NOTE | 2023-01-15 12:54 | PC.NURSE ---
Report to the Outpatient Waiting Room, entrance under the green pavilion located off [facility], at 0800 on 01-21-23. Planned Procedure Time: 1000. Time changes happen often and if your time is changed the preop area will call you the afternoon before. - You and your visitor will be asked to self-screen and do not enter if you have any COVID symptoms. - A mask is optional within the hospital at this time. Patients may have clear liquids (water, carbonated beverages, clear teas, apple juice) until 3 hours prior to surgery with a maximum of 20 ounces. 0700 - No food from midnight until time of surgery - Infants may have breast milk until 4 hours before surgery, formula 6 hours prior to surgery. - Children will be allowed to drink immediately following surgery. If applicable, please bring a bottle or sippy cup to assist with drinking. Juice, water, soda, and popsicles are readily available. For infants on formula, please bring formula the day of surgery. Pacifiers are allowed. Take the following medications with a SIP of water the morning of surgery: None DO NOT STOP ANY OF YOUR OTHER PRESCRIPTION MEDICATIONS PRIOR TO SURGERY ?EXCEPT THE FOLLOWING Medications to discontinue per physician: vitamins and supplements Date to take last dose: 01-18-23 Please no make-up, nail [place] citizen, hairspray, perfume, deodorant, or body powder the day of surgery. No jewelry (including any body piercings) or valuables the day of surgery, leave them at home. Please take a shower or bath the night before, or the morning of, surgery with an antibacterial soap. Wear comfortable, loose fitting clothing. Children are encouraged to wear pajamas. - Jewelry must be removed prior to entering the operating room. Rings and piercings that are not removed may be cut off. - The hospital will not accept responsibility for valuables. - Please leave all valuables, including medications, at home the day of surgery. If you are going home after surgery, a licensed star route mail driver must drive you home. - NO public transportation without another adult if you receive anesthesia. - We recommend that an adult stay with you for 24 hours following discharge. - We also recommend that you do not drive, make important decision, drink alcoholic beverages, or take any drugs that were not prescribed by your health care provider for at least 24 hours after your discharge time. For Pediatric surgeries, we recommend two adults accompany the child home. Follow any additional instructions given to you from your surgeon. If you or anyone in your household have experienced Covid symptoms in the past week, please notify your surgeon or the nurse liaison at the phone number below for possible testing. Telephone instructions given to Khadijah Alarcon and asked if any additional questions and then verbalized understanding. Patient advised to call surgeon office or pre surgery nurse liaison [phone] if any additional questions.
[2023-01-21 08:30] VITALS: BP 121/71; PULSE 73; RESP 20; TEMP 36.4; O2SAT 100
[2023-01-21] MEDS: LACTATED RINGERS 1,000 ML 30 ML IV CONT (08:30)
--- NOTE | 2023-01-21 08:37 | P.PNAN_ITS ---
Anes - Initial Pre Proc Eval Procedure: Operation Date: 01/21/23 10:00 Proposed Procedures p Hysteroscopy Dilation and Curettage with Miley Endometrial Ablation - Florencia Juares MD Date/Time: 01/21/23 08:37 Surgeon: Florencia Juares MD Pre Op Diagnosis: Menorrhagia Patient Data Age: 37 Gender: F Height: 1.65 m Weight: 83.46 kg Allergies Allergy/AdvReac Type Severity Reaction Status Date / Time hydrocodone Allergy Intermediate Rash Verified 01/15/23 12:31 Penicillins Allergy Mild Rash Verified 01/15/23 12:31 Home Medications Medication Instructions Recorded Confirmed Type meclizine 25 mg tablet 25 mg PO BID PRN dizziness 10 days 12/11/22 01/15/23 Rx (Medi-Meclizine) #20 tabs omeprazole 40 mg capsule,delayed 40 mg PO DAILY 12/11/22 01/15/23 History release trazodone 50 mg tablet 75 mg PO HS 12/11/22 01/15/23 History Patient hx anesthesia problems: none Family hx anesthesia problems: none Results Review: All pre-operative results and documents have been reviewed as part of the pre- operative evaluation. [facility] Past Medical History Medical History Anal fissure Asthma GERD (gastroesophageal reflux disease) History of EKG Pneumonia Surgical History Surgical History H/O rectal sphincterotomy Lateral internal sphincterotomy History of History of tubal ligation Family History Family History Other Heart disease Cerebrovascular accident Hypertension Social History Social History Smoking status: Never smoker Second hand tobacco smoke exposure: No Alcohol intake: current Alcohol use details: occassionally on the weekends Substance use: never Substance use type: does not use Lack of Transportation: No Lack of Food: Never True Current Housing: I Have Housing Concerned About Future Housing: No Difficulty Paying Gas/Electric Bills: No Difficulty Paying for Meds: No Currently Unemployed: No Education: Associate Degree Difficulty w/ Childcare or Family Care: No Living arrangements: with family Occupation/Education: occupation 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 Informed Consent: The patient's anesthetic plan and its attendant risks and benefits were discussed with the patient/family/POA. Questions were solicited and answers provided to the satisfaction of the patient/family/POA.
[2023-01-21] MEDS: ACETAMINOPHEN 500 MG TABLET 1000 MG PO (09:02)
--- NOTE | 2023-01-21 09:09 | PM.IMHP ---
H&P: HPI History of Present Illness Date/Time: 01/21/23 09:09 Chief Complaint: Heavy vaginal bleeding Narrative: patient is a 37-year-old female with severe menorrhagia. We have agreed to perform endometrial ablation. With hysteroscopy. The patient understands the details of the procedure. The procedure has been explained in detail. She understands the risks. She understands that injuries may occur that result in hospitalization, more surgery, and severe illness. She understands risk of hemorrhage and infection. She denies any chest pain or shortness of breath. She denies any nausea, vomiting, fever, chills. Review of Systems Review of Systems: All systems reviewed & are unremarkable except as noted in HPI and below Constitutional: Constitutional: Denies chills, Denies fatigue, Denies fever(s) and Denies weakness Eyes: Eyes: Denies blurry vision, Denies change in vision, Denies loss of peripheral vision, Denies loss of vision, Denies other visual disturbances and Denies eye pain ENT: Denies vertigo, Denies dizziness, Denies hearing loss, Denies mouth pain, Denies nasal obstruction, Denies neck mass and Denies neck pain Cardiovascular: Cardiovascular: Denies chest pain, Denies diaphoresis, Denies syncope, Denies leg edema and Denies dyspnea Respiratory: Respiratory: Denies chest congestion, Denies cough, Denies hemoptysis, Denies dyspnea and Denies wheezing Gastrointestinal: Gastrointestinal: Denies abdominal pain, Denies constipation, Denies diarrhea, Denies nausea and Denies vomiting Genitourinary: Genitourinary: Denies hematuria, Denies change in libido, Denies nocturia, Denies genital lesions, Denies flank pain and Denies urinary urgency Musculoskeletal: Musculoskeletal: Denies abnormal gait, Denies back pain, Denies myalgias, Denies arthralgias, Denies joint swelling, Denies muscle weakness and Denies neck pain Integumentary/Breasts: Skin/Breast: Denies swelling, Denies breast pain, Denies breast mass, Denies dry skin, Denies nipple discharge, Denies unusual bruising and Denies jaundice Neurologic: Denies Neuro-related abnormal movements, Denies Abnormal speech present, Denies abnormal gait, Denies behavioral changes, Denies confusion, Denies vertigo, Denies dizziness, Denies syncope, Denies loss of vision, Denies memory loss, Denies convulsions and Denies weakness Psychiatric: Psychiatric: Denies abnormal sleep pattern, Denies behavioral changes, Denies change in libido, Denies confusion, Denies depression, Denies anhedonia and Denies memory loss Endocrine: Endocrine: Reports no additional endocrine complaints, Denies change in libido and Denies fatigue Hematologic/Lymphatic: Hematologic/Lymphatic: Reports no additional hematologic/lymphatic complaints Allergic/Immunologic: Allergic/Immunologic: Reports no additional allergic/immunologic complaints and Denies wheezing PMFSH Past Medical History Medical History Anal fissure Asthma GERD (gastroesophageal reflux disease) History of EKG Pneumonia Surgical History Surgical History H/O rectal sphincterotomy Lateral internal sphincterotomy History of History of tubal ligation Family History Family History Other Heart disease Cerebrovascular accident Hypertension Social History Social History Smoking status: Never smoker Second hand tobacco smoke exposure: No Alcohol intake: current Alcohol use details: occassionally on the weekends Substance use: never Substance use type: does not use Lack of Transportation: No Lack of Food: Never True Current Housing: I Have Housing Concerned About Future Housing: No Difficulty Paying Gas/Electric Bills: No Difficulty Paying for Meds: No Currently Unemployed: No Education
--- NOTE | 2023-01-21 09:12 | WPDHPUPDATE1 ---
History and Physical Update Update Date/Time: 01/21/23 09:12 History and Physical has been reviewed, including an updated exam of the patient. There are NO changes in the patient's condition. Risks, benefits, and alternatives have been discussed and questions answered. Patient agrees to proceed with procedure.
[2023-01-21] MEDS: LIDOCAINE HCL 1% LOCAL INJ 20 ML VIAL 10 ML INFILTRATE (09:34)
[2023-01-21 09:51] VITALS: BP 107/68; PULSE 76; RESP 16; O2SAT 99
--- NOTE | 2023-01-21 10:13 | W.PM.PROC2 ---
Procedure Note - Detailed Date of Procedure 01/21/23 Pre-op Diagnosis Menorrhagia Post-op Diagnosis Same Procedure Performed endometrial ablation with hysteroscopy d&c Surgeon Florencia Juares MD Anesthesia MAC Indications Severe menorrhagia Findings Normal vulva vagina and cervix. Normal endometrium. Description of Procedure The patient was taken to the operating room. She was prepped and draped in the dorsal lithotomy position after induction of mac anesthesia. A speculum was placed in the vagina. Cervix grasped with a tenaculum. The cervix was dilated to about 1 cm. The hysteroscope was inserted. The above findings were noted. Endometrial curettage was performed with a medium-size curette. All surfaces of the endometrium were affected by the curettage. The specimens were collected and sent to pathology. Measurements were taken of the uterus and cervix. The uterine length was then entered into the hand piece of the Miley device. The device was inserted into the intrauterine cavity. The array of the device was expanded. The balloon cuff was inflated. A good seal was achieved. The energy and safety cycles were initiated and completed. The array was collapsed and the instrument was withdrawn after deflating the balloon cuff. Hysteroscope was reinserted. Above findings were noted. The hysteroscope was removed. The patient tolerated the procedure well. The speculum and tenaculum were removed. She was taken to recovery in stable condition. Sponge lap and needle counts were correct x2. Estimated Blood Loss 15 Pathology Yes Complications No immediate complications Condition Stable Disposition Same day
[2023-01-21 10:20] VITALS: BP 116/72; PULSE 50; RESP 16; O2SAT 100
[2023-01-21] MEDS: KETOROLAC 30 MG/ML VIAL (*BKC) IV PUSH (10:20)
[2023-01-21 10:40] VITALS: BP 116/69; PULSE 61; RESP 16
== END 2023-01-21 10:44 | disposition home or self-care (01) ==
PROVIDERS: PCP Student in an Organized Health Care Education/Training Program; Visit Provider Obstetrics & Gynecology
PROC: 0U5B8ZZ Destruction of Endometrium, Via Natural or Artificial Opening Endoscopic (ICD-10-PCS; CPT 58563; principal; 2023-01-21 10:00)
DX: N92.0 Excessive and frequent menstruation with regular cycle (principal); K21.9 Gastro-esophageal reflux disease without esophagitis
CPT/HCPCS: 58563; 88305; A9270; J1100; J1885; J2250; J2405; J2704; J3010; J7120

== ENCOUNTER 2023-04-21 12:13 | Emergency (ER) | payer OTHER, SELFPAY ==
--- NOTE | ~2023-04-21 | XR_ITS ---
EXAMINATION: XR chest 2V DATE: 04/21/2023 13:04 INDICATION: Shortness of breath TECHNIQUE: PA and lateral views of the chest are obtained. COMPARISON: 12/11/2022 FINDINGS: There are minimal airspace opacities of the lung bases. No pleural effusion or pneumothorax . The cardiomediastinal silhouette is normal. There is mild thoracic spondylosis. IMPRESSION: 1. Minimal bibasilar airspace opacity, consistent with atelectasis versus pneumonia. Reviewed, dictated and finalized at location L. IMPRESSION: 1. Minimal bibasilar airspace opacity, consistent with atelectasis versus pneum onia.
[2023-04-21 12:33] VITALS: BP 127/76; PULSE 98; RESP 24; TEMP 37.2; O2SAT 100
--- NOTE | 2023-04-21 12:51 | ED.URI ---
HPI - URI/Sore Throat General Chief Complaint: Upper Respiratory Infection Stated Complaint: Shortness of Breath Time Seen by Provider: 04/21/23 12:51 Source: patient Mode of arrival: ambulatory Limitations: no limitations History of Present Illness HPI Narrative: 37-year-old female with a history of asthma presenting for complaint of ?shortness of breath onset today. States she attributed this to walking up steps. States chest feels tight in the front and back when taking deep breath. States while at work, she sat down and took temp, states it was 102.5 today. Took Tylenol. Used albuterol without significant improvement. States she usually feels this way when she gets sick, denies any cough, lethargy, n/v/d. denies sick contacts. Related Data Home Medications Medication Instructions Recorded Confirmed omeprazole 40 mg capsule,delayed 40 mg PO DAILY 12/11/22 04/21/23 release trazodone 50 mg tablet 75 mg PO HS 12/11/22 04/21/23 albuterol 90 mcg/actuation aerosol 90 mcg inhalation PRN PRN 04/21/23 04/21/23 inhaler Shortness Of Breath Or Wheezing bupropion HCl 300 mg 24 hr tablet, 300 mg PO DAILY 04/21/23 04/21/23 extended release Allergies Allergy/AdvReac Type Severity Reaction Status Date / Time hydrocodone AdvReac Mild Rash Verified 04/21/23 12:19 Penicillins AdvReac Mild Rash Verified 04/21/23 12:19 Review of Systems Review of Systems: CONSTITUTIONAL: Denies body aches, fever, chills, or sweats. EYES: Denies visual changes, redness, or discharge. ENT: Denies rhinorrhea, congestion, sore throat, or otalgia. CARDIOVASCULAR: Denies chest pain, palpitations, or edema. RESPIRATORY: Reports cough, denies sob, wheezing. GASTROINTESTINAL: Denies abdominal pain, nausea, vomiting, or diarrhea. GENITOURINARY: Denies dysuria or hematuria. SKIN: Denies rash, itching, or wounds. MUSCULOSKELETAL: Denies back pain, joint pain, or myalgia. NEUROLOGIC: Denies headache, numbness, tingling, or weakness. All systems reviewed & are unremarkable except as noted in HPI and below PMFSH Past Medical History Medical History Anal fissure Asthma GERD (gastroesophageal reflux disease) History of EKG Pneumonia Surgical History Surgical History H/O rectal sphincterotomy Lateral internal sphincterotomy History of History of tubal ligation Family History Family History Other Heart disease Cerebrovascular accident Hypertension Social History Social History Smoking status: Never smoker Second hand tobacco smoke exposure: No Alcohol intake: current Alcohol use details: occassionally on the weekends Substance use: never Substance use type: does not use Lack of Transportation: No Lack of Food: Never True Current Housing: I Have Housing Concerned About Future Housing: No Difficulty Paying Gas/Electric Bills: No Difficulty Paying for Meds: No Currently Unemployed: No Education: Associate Degree Difficulty w/ Childcare or Family Care: No Living arrangements: with family Occupation/Education: occupation 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 Please see nursing chart for further information. There is no relevant family history pertinent to the presenting complaint Exam Narrative: GENERAL: Well-appearing, in no acute distress. EYES: EOMI. No redness or drainage. Conjunctivae normal. ENT: Mucous membranes pink and moist. No rhinorrhea. CHEST: No respiratory distress. LCTAB. No cough. Speaks full sentences.
== END 2023-04-21 13:28 | disposition home or self-care (01) ==
PROVIDERS: Emergency Provider Nurse Practitioner Family; PCP Student in an Organized Health Care Education/Training Program
DX: J22 Unspecified acute lower respiratory infection (principal); J45.909 Unspecified asthma, uncomplicated; K21.9 Gastro-esophageal reflux disease without esophagitis
CPT/HCPCS: 71046; 99213; G0463

== ENCOUNTER 2023-05-16 06:41 | Emergency (ER) | payer OTHER, SELFPAY ==
[2023-05-16 06:48] VITALS: BP 116/81; PULSE 84; RESP 18; TEMP 36.3; O2SAT 100
--- NOTE | 2023-05-16 08:42 | ED.GENADULT ---
HPI - General Adult General Chief complaint: Back Pain/Injury Stated complaint: right back, hip, and leg pain Time Seen by Provider: 05/16/23 07:33 History of Present Illness HPI narrative: 37-year-old female present emergency department for evaluation of right hip pain. Patient does have a history of sciatica and states this feels similar to her sciatica. Yesterday the patient was picking up a case of water and felt pain in her lower back. Patient states approximately 5 minutes later she started having pain that radiated down her right hip. Patient that she has pain that radiates from her right hip down her right thigh knee. Patient does report some numbness and tingling that does not past the knee. Patient denies any other falls or injuries. Related Data Home Medications Medication Instructions Recorded Confirmed omeprazole 40 mg capsule,delayed 40 mg PO DAILY 12/11/22 04/21/23 release trazodone 50 mg tablet 75 mg PO HS 12/11/22 04/21/23 albuterol 90 mcg/actuation aerosol 90 mcg inhalation PRN PRN 04/21/23 04/21/23 inhaler Shortness Of Breath Or Wheezing bupropion HCl 300 mg 24 hr tablet, 300 mg PO DAILY 04/21/23 04/21/23 extended release Allergies Allergy/AdvReac Type Severity Reaction Status Date / Time hydrocodone AdvReac Mild Rash Verified 05/16/23 06:51 Penicillins AdvReac Mild Rash Verified 05/16/23 06:51 Review of Systems Review of Systems: All systems reviewed & are unremarkable except as noted in HPI and below PMFSH Past Medical History Medical History Anal fissure Asthma GERD (gastroesophageal reflux disease) History of EKG Pneumonia Surgical History Surgical History H/O rectal sphincterotomy Lateral internal sphincterotomy History of History of tubal ligation Family History Family History Other Heart disease Cerebrovascular accident Hypertension Social History Social History Smoking status: Never smoker Second hand tobacco smoke exposure: No Alcohol intake: current Alcohol use details: occassionally on the weekends Substance use: never Substance use type: does not use Lack of Transportation: No Lack of Food: Never True Current Housing: I Have Housing Concerned About Future Housing: No Difficulty Paying Gas/Electric Bills: No Difficulty Paying for Meds: No Currently Unemployed: No Education: Associate Degree Difficulty w/ Childcare or Family Care: No Living arrangements: with family Occupation/Education: occupation 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 HEAD: normocephalic, atraumatic. EYES: PERRLA/EOMI, conjunctivae clear. NOSE: Normal no drainage NECK: Supple. No adenopathy, no masses. RESPIRATORY: Airway patent, respirations nonlabored. Clear to auscultation bilaterally, no rales, rhonchi, wheezing. CARDIOVASCULAR: Regular rate and rhythm without murmurs rubs or gallops. ABDOMINAL: Soft, nontender, nondistended, normal bowel sounds MUSCULOSKELETAL: Right buttock tenderness. Neurovascular intact NEURO: Alert. Cranial nerves II through XII intact. Good gait. Good coordination SKIN: Warm, dry. Normal Color Course Course Emergency Course: 37-year-old female present emergency department for evaluation of right hip pain that is consistent with sciatica. Patient reports that she is on antibiotics for a suspected pneumonia/post-COVID. The risks and benefits of being on steroids while having a lung infection were discussed and patient was willing to try the Medrol Dosepak. Patient and family were educated on reasons to return
[2023-05-16] MEDS: CYCLOBENZAPRINE HCL 10 MG TABLET PO (08:51)
[2023-05-16] MEDS: KETOROLAC 30 MG/ML VIAL (*BKC) IM (08:53)
[2023-05-16] MEDS: HYDROcodone/acetaminophen (*CRX) 5-325 MG TABLET 1 TAB PO (08:58)
[2023-05-16 10:30] VITALS: BP 142/84; PULSE 84; RESP 16; O2SAT 99
== END 2023-05-16 10:31 | disposition home or self-care (01) ==
PROVIDERS: Emergency Provider Emergency Medicine; PCP Student in an Organized Health Care Education/Training Program
DX: M54.31 Sciatica, right side (principal); J45.909 Unspecified asthma, uncomplicated; K21.9 Gastro-esophageal reflux disease without esophagitis; Z87.01 Personal history of pneumonia (recurrent)
CPT/HCPCS: 96372; 99283; A9270; J1885

== ENCOUNTER 2023-07-09 16:40 | Emergency (ER) | payer OTHER, SELFPAY ==
[2023-07-09 16:46] VITALS: BP 135/79; PULSE 76; RESP 16; TEMP 36.7; O2SAT 100
--- NOTE | 2023-07-09 17:03 | ED.URI ---
HPI - URI/Sore Throat General Chief Complaint: Upper Respiratory Infection Stated Complaint: Cough,Rt Ear Irritation Time Seen by Provider: 07/09/23 16:53 Source: patient and RN notes reviewed Mode of arrival: ambulatory Limitations: no limitations History of Present Illness HPI Narrative: Patient presents today complaining of 3 day history of dry cough, chills, sore throat, fatigue, right ear popping, and intermittent shortness of breath. Denies fever congestion, rhinorrhea, wheezing. She has tried Sudafed and used her albuterol inhaler, which has provided some relief. She has had 2 home COVID tests that were negative. Denies known sick contacts. History of asthma Related Data Home Medications Medication Instructions Recorded Confirmed omeprazole 40 mg capsule,delayed 40 mg PO DAILY 12/11/22 07/09/23 release albuterol 90 mcg/actuation aerosol 90 mcg inhalation PRN PRN 04/21/23 07/09/23 inhaler Shortness Of Breath Or Wheezing Allergies Allergy/AdvReac Type Severity Reaction Status Date / Time hydrocodone AdvReac Mild Rash Verified 07/09/23 16:54 Penicillins AdvReac Mild Rash Verified 07/09/23 16:54 Review of Systems Review of Systems: CONSTITUTIONAL: Denies body aches, fever, or sweats.+ chills, fatigue EYES: Denies visual changes, redness, or discharge. ENT: Denies rhinorrhea, congestion. + sore throat, right ear popping CARDIOVASCULAR: Denies chest pain, palpitations, or edema. RESPIRATORY: + cough, shortness of breath GASTROINTESTINAL: Denies abdominal pain, nausea, vomiting, or diarrhea. GENITOURINARY: Denies dysuria or hematuria. SKIN: Denies rash, itching, or wounds. MUSCULOSKELETAL: Denies back pain, joint pain, or myalgia. NEUROLOGIC: Denies headache, numbness, tingling, or weakness. PSYCH: Denies depression or anxiety. [facility] Past Medical History Medical History Anal fissure Asthma GERD (gastroesophageal reflux disease) History of EKG Pneumonia Surgical History Surgical History H/O rectal sphincterotomy Lateral internal sphincterotomy History of History of tubal ligation Family History Family History Other Heart disease Cerebrovascular accident Hypertension Social History Social History Smoking status: Never smoker Second hand tobacco smoke exposure: No Alcohol intake: current Alcohol use details: occassionally on the weekends Substance use: never Substance use type: does not use Lack of Transportation: No Lack of Food: Never True Current Housing: I Have Housing Concerned About Future Housing: No Difficulty Paying Gas/Electric Bills: No Difficulty Paying for Meds: No Currently Unemployed: No Education: Associate Degree Difficulty w/ Childcare or Family Care: No Living arrangements: with family Occupation/Education: occupation 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 Please see nursing chart for further information. There is no relevant family history pertinent to the presenting complaint Exam Narrative: GENERAL: Well-appearing, well-nourished, and in no acute distress. HEAD: Normocephalic, atraumatic. EYES: EOMI. No redness or drainage. Conjunctivae normal. ENT: Mucous membranes pink and moist. Nares clear. No rhinorrhea. Bilateral mild middle ear effusions without evidence of bacterial infection. Throat erythematous without edema or exudate. Uvula midline. NECK: Normal AROM. Supple. No lymphadenopathy. CHEST: No respiratory distress.
== END 2023-07-09 17:30 | disposition home or self-care (01) ==
PROVIDERS: Emergency Provider Nurse Practitioner; PCP Student in an Organized Health Care Education/Training Program
DX: J06.9 Acute upper respiratory infection, unspecified (principal); J45.901 Unspecified asthma with (acute) exacerbation; K21.9 Gastro-esophageal reflux disease without esophagitis
CPT/HCPCS: 87081; 87804; 87880; 99213; G0463

== ENCOUNTER 2023-10-29 09:34 | Outpatient (CLI) | payer OTHER, SELFPAY ==
--- NOTE | ~2023-10-29 | MMUS_ITS ---
EXAMINATION: MM diagnostic amauri BI w vanita, US breast LT limited HISTORY: Left breast lump TECHNIQUE: ML, MLO and CC 3-D tomosynthesis images of were performed and synthetic 2-D images were ge nerated. CAD analysis was submitted and interpreted. High resolution targeted left breast ultrasound examination at area of clinical complaint of breast lump was performed. COMPARISON: None BREAST PARENCHYMAL COMPOSITION: There are scattered areas of fibroglandular density. FINDINGS: MAMMOGRAPHIC FINDINGS: No suspicious mass or architectural distortion, malignant calcification, skin thickening or retractio n is detected. ULTRASOUND: No suspicious mass or shadowing, cyst or other significant sonographic abnormality is identified at t he area of clinical complaint of left breast lump at 7:00 7 cm from nipple. IMPRESSION: 1. No evidence of malignancy 2. Routine annual mammographic screening is recommended BI-RADS Category 1: Negative Reviewed, dictated and finalized at location A. IMPRESSION: 1. No evidence of malignancy 2. Routine annual mammographic screening is recommended BI-RADS Category 1: Negative
== END 2023-10-29 09:35 | disposition home or self-care (01) ==
LOC: CHSIMG 09:38
PROVIDERS: PCP Student in an Organized Health Care Education/Training Program; Visit Provider Nurse Practitioner
DX: N63.21 Unspecified lump in the left breast, upper outer quadrant (principal)
CPT/HCPCS: 76642; 77062; 77066; G0279

== ENCOUNTER 2024-05-11 20:42 | Emergency (ER) | payer OTHER, SELFPAY ==
[2024-05-11 20:59] VITALS: BP 123/64; PULSE 74; RESP 16; TEMP 36.7; O2SAT 98
--- NOTE | 2024-05-11 22:30 | ED.BACK ---
HPI - Back Pain/Injury General Chief Complaint: Back Pain/Injury Stated Complaint: lower back pain Time Seen by Provider: 05/11/24 22:10 Source: patient Mode of arrival: ambulatory Limitations: no limitations History of Present Illness HPI Narrative: This is a 38-year-old female who presents to the ED for chief complaint of acute on chronic lower back pain that started today around 4:00 p.m.. Reports that she has been diagnosed with sciatica in the past and has a flare up like this once or twice a year. States that she took Flexeril twice a day with no relief. He denies any specific injury a strain. Sits at a chair and desk all day for work. Endorses paresthesias in the right leg but no left-sided symptoms. Pain does radiate from the right lower back into the right posterior thigh. Denies fevers, chills, nausea, vomiting, focal weakness, saddle anesthesia, bowel or bladder dysfunction Related Data Home Medications Medication Instructions Recorded Confirmed omeprazole 40 mg capsule,delayed 40 mg PO DAILY 12/11/22 07/09/23 release albuterol 90 mcg/actuation aerosol 90 mcg inhalation PRN PRN 04/21/23 07/09/23 inhaler Shortness Of Breath Or Wheezing Allergies Allergy/AdvReac Type Severity Reaction Status Date / Time hydrocodone AdvReac Mild Rash Verified 05/11/24 21:00 Penicillins AdvReac Mild Rash Verified 05/11/24 21:00 Review of Systems Review of Systems: All systems as dictated in HPI [facility] Past Medical History Medical History Anal fissure Asthma GERD (gastroesophageal reflux disease) History of EKG Pneumonia Surgical History Surgical History H/O rectal sphincterotomy Lateral internal sphincterotomy History of History of tubal ligation Family History Family History Other Heart disease Cerebrovascular accident Hypertension Social History Social History Smoking status: Never smoker Second hand tobacco smoke exposure: No Alcohol intake: current Alcohol use details: occassionally on the weekends Substance use: never Substance use type: does not use Lack of Transportation: No Lack of Food: Never True Current Housing: I Have Housing Concerned About Future Housing: No Difficulty Paying Gas/Electric Bills: No Difficulty Paying for Meds: No Currently Unemployed: No Education: Associate Degree Difficulty w/ Childcare or Family Care: No Living arrangements: with family Occupation/Education: occupation 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 HEAD: Normocephalic, atraumatic. EYES: PERRLA and EOMI. ENT: Nares clear, no rhinorrhea or epistaxis. Mucous membranes moist. Oropharynx without tonsillar hypertrophy exudate or other lesions. NECK: Supple. No adenopathy or masses. CHEST: No respiratory distress. Clear to auscultation. No wheezes rales or rhonchi HEART: Regular rate and rhythm. No murmur heard. Normal peripheral pulses. ABDOMEN: Soft, nontender, nondistended, normal active bowel sounds. MSK: Normal range of motion. No edema. Straight leg raise equivocal on the right and negative on the left. No midline spinal tenderness throughout. SKIN: Warm, dry, no rash. NEURO: Alert and oriented x4. No focal deficits. PSYCH: Normal mood and affect. Course Vital Signs Vital signs: Vital Signs Temperature 98.0 F 05/11/24 20:59 Pulse Rate 74 05/11/24 20:59 Respiratory Rate 16 05/11/24 20:59 Blood Pressure 123/64 05/11/24 20:59 Pulse Oximetry 98 05/11/24 20:59 Oxygen Delivery Room Air 05/11/24 20:5
[2024-05-11 22:58] VITALS: BP 117/72; PULSE 68; RESP 16; TEMP 36.8; O2SAT 98
[2024-05-11] MEDS: ACETAMINOPHEN 500 MG TABLET 1000 MG PO (22:59)
[2024-05-11] MEDS: KETOROLAC 30 MG/ML VIAL (*BKC) IV PUSH (23:00)
[2024-05-11] MEDS: diazePAM INJ (*CRX) 10 MG/2 ML SYRINGE 2.5 MG IV PUSH (23:02)
[2024-05-12] MEDS: MORPHINE SULFATE (*CRX) 2 MG/ML INJ IV PUSH (00:15)
== END 2024-05-12 03:40 | disposition home or self-care (01) ==
PROVIDERS: Emergency Provider Physician Assistant; PCP Student in an Organized Health Care Education/Training Program
DX: S29.012A Strain of muscle and tendon of back wall of thorax, initial encounter (principal); M54.16 Radiculopathy, lumbar region; J45.909 Unspecified asthma, uncomplicated; K21.9 Gastro-esophageal reflux disease without esophagitis; Z87.01 Personal history of pneumonia (recurrent); X58.XXXA Exposure to other specified factors, initial encounter
CPT/HCPCS: 96374; 96375; 99284; A9270; J1885; J2270; J3360

== ENCOUNTER 2024-09-25 09:13 | Emergency (ER) | payer OTHER, SELFPAY ==
--- OUTSIDE RECORDS SUMMARY | 2024-09-25 09:16 | XMS_ITS | Clinical Summary ---
Author Organization [facility] [address] Address [address] [place] [address] Care Team Providers Care Clerk Cashier Name Role Phone Stan Aguirre DO Primary Care Provide r Nettie Muller MELTER SUPERVISOR OXYGEN FURNACE Unavailable [phone] Allergies Active Allergy Reactions Criticality Noted Date Comments Codeine Nausea only High 07/11/2021 Hydrocodone Nausea only Low 07/11/2021 Penicillins Rash Medium 03/17/2019 Medications albuterol HFA (PROVENTIL HFA,VENTOLIN HFA,PROAIR HFA) 90 mcg/actuation inhaler Inhale 2 puffs every 4 (four) hours as needed Active meclizine (ANTIVERT) 25 mg tablet TAKE 1 TABLET BY MOUTH TWICE DAILY FOR 10 DAYS NEEDED FOR DIZZINESS 3 Active omeprazole (PriLOSEC) 20 mg capsule Take 1 capsule (20 mg total) by mouth daily Active traZODone (DESYREL) 50 mg tablet TAKE 1/2 TO 1 TABLET(25 TO 50 MG) BY MOUTH EVERY NIGHT NEEDED FOR SLEEP 3 Active predniSONE (DELTASONE) 10 mg tabletIndicatio ns:Sciatic pain, right Take 3 tabs days 1 & 2, 2 tabs days 3 & 4, 1 tab days 5-7. 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 Gender Identity Not on file Sexual Orientation Not on file Obstetrics History Last Filed Vital Signs Vital Sign Reading Time Taken Comments Blood Pressure 118/70 05/28/2023 4:54 PM CDT Pulse 91 05/28/2023 4:54 PM CDT Temperature 36.7 C (98 F) 05/28/2023 4:54 PM CDT Respiratory Rate 16 05/28/2023 4:54 PM CDT Oxygen Saturation 98% 05/28/2023 4:54 PM CDT Inhaled Oxygen Concentration - - Weight 83.5 kg (184 lb) 05/28/2023 4:54 PM CDT Height 165.1 cm (5' 5 ) 01/23/2023 9:17 AM CDT Body Mass Index 30.62 01/23/2023 9:17 AM CDT Plan of Treatment Health Maintenance Due Date Last Done Comments Breast Cancer Screening-Mammogram 1983 Cervical Cancer Screening 1983 Depression Screening 1983 Hepatitis C Screening 1983 Varicella Vaccines (1 of 2 - 13+ 2-dose series) 10/04/1996 Hepatitis B Screening 10/04/2001 Regular Well Visit/Exam 18-64 10/04/2001 Pneumococcal vaccine <65 (2 of 2 - PCV) 05/17/2021 05/17/2020 Covid-19 Vaccine (2 - 2023- season) 2024 09/13/2020 Influenza Vaccine (#1) 2024 3, 05/07/2022, 05/09/2021, Additional history exists DTaP/Tdap/Td Vaccine (2 - Td or Tdap) 05/04/2029 05/04/2019 HPV Vaccines Aged Out No longer eligi ble based on patient's age to complete this topic Insurance [facility] PL[facility] PL[facility] Care Teams Clerk Cashier Relationship Specialty Start Date End Date Stan Aguirre DO [address] [place] [address] [id number] PCP - General Family Medicine 01/23/23 Nettie Muller NP [address] [place] [address] Nurse Practitioner Obstetrics and Gynecology 01/23/23
--- OUTSIDE RECORDS SUMMARY | 2024-09-25 09:16 | XMS_ITS | Continuity of Care Document ---
Author Organization [facility] Address [address] [place] [address] Phone Care Team Providers Care Mining Detail Draftsperson Name Role Phone Felicita PT, DPT, Baltazar Unavailable Unavailable Procedures Procedure Date Progress Note Therapeutic Activities Therapeutic Exercise Therapeutic Activities Therapeutic Exercise Therapeutic Activities Therapeutic Exercise Therapeutic Activities Therapeutic Exercise PT Evaluation Moderate Complexity Therapeutic Activities Therapeutic Exercise Advance Directives Directive Yes / No Effective Date File Name No Information Encounters Encounter Description Practice Location Reason(s) For Visit Diagnoses Date Provider Providers Copied on Encounter [facility], [id number], tel:[phone] [place] No Information 2 Felicita Ledesma. . [facility], [id number], [place] tel:[phone] [place] No Information 2 Felicita Ledesma. . Referring Provider: Stan Aguirre , [facility] [place], [address]. tel:[phone] [facility] [address] [place] [address], [id number], tel:[phone] [place] No Information 2 Felicita Ledesma. . Referring Provider: Stan Aguirre , [address] [place] [address], [address]. tel:[phone], [id number], tel:[phone] [place] No Information 2 Felicita Ledesma. . Referring Provider: Stan Aguirre , [address] [place] [address], [address]. tel:[phone], [id number], tel:[phone] [place] No Information 2 Felicita Ledesma. . Referring Provider: Stan Aguirre , [address] [place] [address], [address]. tel:[phone], [id number], tel:[phone] [place] No Information 2 Felicita Ledesma. . Referring Provider: Stan Aguirre , [address] [place] [address], [id number]. tel:[phone] Family History Family Member Type Diagnosis Age At Onset No Information Payers Payer name Insurance type Covered republican ID Tay antoinecinda(s) [facility] CI [id number] Social History Type Description Quantity Date Captured Comments Sex Female Smoking Status No Information Chief Complaint And Reason For Visit No Information Reason For Referral Reason For Referral No Information History Of Present Illness Encounter Date Complaint History Of Prese nt Illness No Information Functional Status Date Functional Assessmen t No Information Instructions Date Instruction Additional Infor mation Giving encouragement to exercise Related to Overweight Giving encouragement to exercise Related to Overweight Assessments Type Assessment Date No Information Patient Care Teams Name Effective Dates (start - stop) Status Members No Information
--- OUTSIDE RECORDS SUMMARY | 2024-09-25 09:16 | XMS_ITS | Continuity of Care Document ---
Author Organization [facility] Address [address] [place] [address] [place] [address] Phone Care Team Providers Care Quill Cleaning Machine Operator Name Role Phone Patricio Tello MD Unavailable Unavailable Advance Directives Directive Yes / No Effective Date File Name No Information Encounters Encounter Description Practice Location Reason(s) For Visit Diagnoses Date Provider Providers Copied on Encounter [facility], [address] [place] [address] [address], [place], [place], [id number], [place] tel:[phone] No Information 6 Elisha Curry. [address] [place], [place], [id number], [place]. tel:[phone] Family History Family Member Type Diagnosis Age At Onset No Information Payers Payer name Insurance type Covered constitution party ID Authoriza tion(s) Medicaid [facility] [id number] Social History Type Description Quantity Date Captured Comments Sex Female Smoking Status No Information Chief Complaint And Reason For Visit No Information Reason For Referral Reason For Referral No Information History Of Present Illness Encounter Date Complaint History Of Prese nt Illness No Information Functional Status Date Functional Assessmen t No Information Instructions Date Instruction Additional Infor mation No Information Assessments Type Assessment Date No Information Patient Care Teams Name Effective Dates (start - stop) Status Members No Information
--- OUTSIDE RECORDS SUMMARY | 2024-09-25 09:16 | XMS_ITS | Data Portability ---
[facility] [address] [place] [address] Care Team Providers Care Candy Dipper Name Role Phone MALISSA RODRIGUEZ Clinical Dental Technician Unavailable CHARLIE LOPEZ Primary Care Provider Assessment Encounter Date Assessment Date Assessment LastModified by Organization Details LastModified Time 11/05/2020 11/05/2020 RADHA Díaz Not available 11/05/2020 12:00:03 Plan of Treatment Reminders Order Date Submit Date Provider Last Modified By Organization Details Last Modified Time Details Appointments None recorded. Lab urinalysi s, dipstick 2020 021 lee In-Office Order, Internal Use Only DO Not Attach Compendium DO Not Attach Compendium, Do Not Delete/merge, [id number] 12:59:21 culture, vaginal/r ectal, streptoco ccus group B 2020 021 NATALIE [facility], [address] [place] [address], [address], [place], [address], 12:00:55 bacterial vaginosis + vaginitis panel, vaginal 2020 021 [facility], [address] [place] [address], [address], [place], [address], 15:05:21 HSV (1+2) DNA, qual, PCR, unspecifi ed specimen 2020 021 [facility], [address] [place] [address], [address], [place], [address], 1 15:05:21 unlisted lab - igp,aptim a HPV,age gdln 2018 019 NATALIE [facility], [address], [address], [place], [address], 9 06:06:05 urinalysi s, dipstick 2018 019 [email or web address] 1 In-Office Order, Internal Use Only DO Not Attach Compendium DO Not Attach Compendium, Do Not Delete/merge, [id number] 9 16:57:47 bacterial vaginosis panel, vaginal 2018 019 NATALIE [facility], [address] [place] [address], [address], [place], [address], 9 14:08:41 urinalysi s, dipstick 2018 019 [email or web address] In-Office Order, Internal Use Only DO Not Attach Compendium DO Not Attach Compendium, Do Not Delete/merge, [id number] 9 15:24:09 pap, IG + HPV, cervical - please use Z11.51 in addition to code above for HPV testing. 2017 018 NATALIE [facility], [address], [address], [place], [address], 8 14:14:40 urinalysi s, dipstick 2017 018 [email or web address] In-Office Order, Internal Use Only DO Not Attach Compendium DO Not Attach Compendium, Do Not Delete/merge, [id number] 8 12:21:17 test, urine 2017 018 [email or web address] In-Office Order, Internal Use Only DO Not Attach Compendium DO Not Attach Compendium, Do Not Delete/merge, [id number] 8 12:21:17 bacterial vaginosis + vaginitis panel, vaginal - Z11.3, Z20.0 2017 [facility], [address] [place] [address], [address], [place], [address], 8 11:36:51 HSV (1+2) DNA, qual, PCR, unspecifi ed specimen - Z11.3, Z20.2 2017 [facility], [address] [place] [address], [address], [place], [address], 8 11:36:52 culture, vaginal/r ectal, streptoco ccus group B - Z11.3, Z20.2 2017 [facility], [address] [place] [address], [address], [place], [address], 8 11:36:53 hepatitis panel (A+B+C), acute, serum 2017 [facility], [address] [place] [address], [address], [place], [address], 8 20:09:54 hepatitis B surface Ab, qualitati ve, serum 2017 [facility], [address] [place] [address], [address], [place], [address], 8 20:09:55 HIV 1+2 AB + HIV 1 p24 Ag, qualitati ve immunoass ay, serum 2017 [facility], [address] Rosalie Reinoso, [address], [address], 8 20:09:56 treponema pallidum screen, serum, reflex confirmat ion 2017 [facility], [address] [place] [address], [address], [place], [address], 8 20:09:56 HSV 2 IgG Ab, QN, IA, serum 2017 018 NATALIE [facility], [address] [place] [address], [address], [place], [address], 8 20:09:56 Referral counselin g referral 2017 018 mildred Langford (), [address] [place] [address], [address], 9 10:03:12 Procedures None recorded. Surgeries None recorded. Imaging None recorded. Medication Orders multivita min tablet 2020 021 [facility]83342, [address], [place], [id number], 12:59:21 Calcium with Vitamin D 600 mg-10 mcg (400 unit) tablet 2020 021 [facility] #96893, [address], [place], [id number], 12:59:21 Clindesse 2 % vaginal cream,ext ended release 2020 021 [facility] #91810, [address], [place], [id number], 12:00:12 Gynazole- 1 2 % vaginal cream 2020 021 [facility], [address], [place], [id number], 12:47:10 Slynd 4 mg (28) tablet 2019 020 [facility], [address] [facility] [place], [id number], 1 11:19:29 fluconazo le 150 mg tablet 2018 019 [facility] [address] [place] [address] [facility] #85096, [address] [facility], [place], [place], [id number], 9 16:51:23 multivita min tablet 2018 019 [facility] #39841, [address] [facility], [place], [place], [id number], 1 11:22:35 Calcium with Vitamin D 600 mg-10 mcg (400 unit) tablet 2018 019 [facility] #08505, [address] [facility], [place], [place], [id number], 1 11:22:04 nitrofura ntoin monohydra te/macroc rystals 100 mg capsule 2018 019 [facility], [address] [facility], [place], [place], [id number], 0 17:09:22 acyclovir 800 mg tablet 2017 018 [facility] [address] [place] [address] [facility] #70513, [address] [facility], [place], [place], [id number], 9 16:52:29 azithromy david 250 mg tablet 2017 018 [facility] #36287, [address] [facility], [place], [place], [id number], 1 11:20:01 multivita min tablet 2017 018 [facility] #08373, [address] [facility], [place], [place], [id number], 1 11:22:35 Calcium with Vitamin D 600 mg-10 mcg (400 unit) tablet 2017 [facility] #33667, [address] [facility], [place], [place], [id number], 1 11:22:[address] granules in packet 2017 [facility] #81446, [address] [facility], [place], [place], [id number], 9 16:52:04 sertralin e 100 mg tablet 2017 018 [facility] [employer] [facility] #17423, [address] [facility], [place], [place], [id number], 9 16:52:17 trazodone 50 mg tablet 2017 018 [facility] #29054, [address] [facility], [place], [place], [id number], 11:19:24 Patient TargetsNo targets recorded. Patient Instructions Encounter Date Encounter Id Patient Instructions Last Modified By Organization Details Last Modified Time 05/10/2018 [id number] bacterial vaginosis: care instructions lee Not available 05/10/2018 13:05:24 learning about mood disorders [email or web address] Not available 05/10/2018 13:05:24 05/12/2019 [id number] candidiasis: care instructions lee Not available 05/12/2019 15:24:09 07/22/2019 [id number] Well Visit, Ages 18 to 65: Care Instructions [email or web address] Not available 07/22/2019 16:57:47 A healthy lifestyle: care instructions [email or web address] Not available 07/22/2019 16:55:54 11/05/2020 [id number] bacterial vaginosis: care instructions mwasserman Not available 11/05/2020 12:00:04 vaginal yeast infection: care instructions mwasserman Not available 11/05/2020 12:05:57 Reason for Referral Counseling Referral for Depr essive disorder Referring Physician: Malissa Rodriguez, [employer]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, Encounter Date: 05/10/2018 Results Created Date Observation Date Name Description Value Unit Range Abnormal Flag Note LastModifiedBy Organization Detail LastModifiedTime 11/06/19 21 11/05/2020 urina lysis , dipst ick Leukocytes Negati ve Not Available In-Office Order Internal Use Only DO Not Attach Compendium DO Not Attach Compendium, Do Not Delete/merge, 11/05/2020 11:36:29 11/06/19 21 11/05/2020 urina lysis , dipst ick Nitrite negati ve Not Available In-Office Order Internal Use Only DO Not Attach Compendium DO Not Attach Compendium, Do Not Delete/merge, 11/05/2020 11:36:29 11/06/19 21 11/05/2020 urina lysis , dipst ick Urobilinogen .2 Not Available In-Of fice Order Internal Use Only DO Not Attach Compendium DO Not Attach Compendium, Do Not Delete/merge, 11/05/2020 11:36:29 11/06/19 21 11/05/2020 urina lysis , dipst ick Protein Negati ve Not Available In-Office Order Internal Use Only DO Not Attach Compendium DO Not Attach Compendium, Do Not Delete/merge, 11/05/2020 11:36:29 11/06/19 21 11/05/2020 urina lysis , dipst ick pH 7.5 Not Available In-Office Order Internal Use Only DO Not Attach Compendium DO Not Attach Compendium, Do Not Delete/merge, 11/05/2020 11:36:29 11/06/19 21 11/05/2020 urina lysis , dipst ick Blood Modera te Not Available In-Office Order Internal Use Only DO Not Attach Compendium DO Not Attach Compendium, Do Not Delete/merge, 11/05/2020 11:36:29 11/06/19 21 11/05/2020 urina lysis , dipst ick Specific Napoleon 1.015 Not Available In-Off ice Order Internal Use Only DO Not Attach Compendium DO Not Attach Compendium, Do Not Delete/merge, [id number] 11/05/2020 11:36:29 11/06/19 21 11/05/2020 urina lysis , dipst ick Ketone Negati ve Not Available In-Office Order Internal Use Only DO Not Attach Compendium DO Not Attach Compendium, Do Not Delete/merge, 11/05/2020 11:36:29 11/06/19 21 11/05/2020 urina lysis , dipst ick Bilirubin Negati ve Not Available In-Office Order Internal Use Only DO Not Attach Compendium DO Not Attach Compendium, Do Not Delete/merge, 11/05/2020 11:36:29 11/06/19 21 11/05/2020 urina lysis , dipst ick Glucose Negati ve Not Available In-Office Order Internal Use Only DO Not Attach Compendium DO Not Attach Compendium, Do Not Delete/merge, 11/05/2020 11:36:29 05/12/20 19 05/12/2019 urina lysis , dipst ick Leukocytes Negati ve Not Available In-Office Order Internal Use Only DO Not Attach Compendium DO Not Attach Compendium, Do Not Delete/merge, [id number] 05/12/2019 15:01:39 05/12/20 19 05/12/2019 urina lysis , dipst ick Nitrite negati ve Not Available In-Office Order Internal Use Only DO Not Attach Compendium DO Not Attach Compendium, Do Not Delete/merge, 05/12/2019 15:01:39 05/12/20 19 05/12/2019 urina lysis , dipst ick Urobilinogen .2 Not Available In-Of fice Order Internal Use Only DO Not Attach Compendium DO Not Attach Compendium, Do Not Delete/merge, 05/12/2019 15:01:39 05/12/20 19 05/12/2019 urina lysis , dipst ick Protein Negati ve Not Available In-Office Order Internal Use Only DO Not Attach Compendium DO Not Attach Compendium, Do Not Delete/merge, [id number] 05/12/2019 15:01:39 05/12/20 19 05/12/2019 urina lysis , dipst ick pH 6.5 Not Available In-Office Order Internal Use Only DO Not Attach Compendium DO Not Attach Compendium, Do Not Delete/merge, [id number] 05/12/2019 15:01:39 05/12/20 19 05/12/2019 urina lysis , dipst ick Blood Non-He molyze d: Trace Not Available In-Office Order Internal Use Only DO Not Attach Compendium DO Not Attach Compendium, Do Not Delete/merge, [id number] 05/12/2019 15:01:39 05/12/2005/12/2019 urina lysis , dipst ick Specific Napoleon 1.010 Not Available In-Off ice Order Internal Use Only DO Not Attach Compendium DO Not Attach Compendium, Do Not Delete/merge, [id number] 05/12/2019 15:01:39 05/12/20 19 05/12/2019 urina lysis , dipst ick Ketone Negati ve Not Available In-Office Order Internal Use Only DO Not Attach Compendium DO Not Attach Compendium, Do Not Delete/merge, [id number] 05/12/2019 15:01:39 05/12/20 19 05/12/2019 urina lysis , dipst ick Bilirubin Negati ve Not Available In-Office Order Internal Use Only DO Not Attach Compendium DO Not Attach Compendium, Do Not Delete/merge, [id number] 05/12/2019 15:01:39 05/12/20 19 05/12/2019 urina lysis , dipst ick Glucose Negati ve Not Available In-Office Order Internal Use Only DO Not Attach Compendium DO Not Attach Compendium, Do Not Delete/merge, [id number] 05/12/2019 15:01:39 05/10/20 18 05/11/2018 pap, IG + HPV, cervi olya diagnosis: COMMEN T NEGAT DANIEL FOR INTRA EPITH ELIAL LESIO N AND BLAYNE SALCIDO . Not Available [facility] ([facility]) [address] [facility], [place], [address], 05/12/2018 14:14:40 05/10/20 18 05/11/2018 pap, IG + HPV, cervi olya specimen adequacy: ANDIE Garcia Satis facto ry for evalu ation . No endoc ervic al compo nent is ident ified . Not Available [facility] ([facility]) [address] [place], [address], 05/12/2018 14:14:40 05/10/20 18 05/11/2018 pap, IG + HPV, cervi olya clinician provided ICD10: ANDIE Garcia Z01.4 11 Z11.5 1 Not Available [facility] ([facility]) [address] [place], [address], 05/12/2018 14:14:40 05/10/20 18 05/11/2018 pap, IG + HPV, cervi olya performed by: ANDIE lemus, Cytot ghazala garcia (ASCP ) Not Available [facility] ([facility]) [address] [place], [address], 05/12/2018 14:14:40 05/10/20 18 05/11/2018 pap, IG + HPV, cervi olya . . Not Available [facility] ([facility]) [address] [place], [address], 05/12/2018 14:14:40 05/10/20 18 05/11/2018 pap, IG + HPV, cervi olya note: ANDIE Garcia The Pap smear is a scree gisell test desig christy to aid in the detec tion of susanna ligna nt and malig nant condi tions of the uteri ne cervi x. It is not a diagn ostic proce dure and shoul d not be used as the sole means of detec ting cervi olya cance r. Both false -posi tive and false -nega tive repor ts do occur . Not Available [facility] ([facility]) [address] [place], [address], 05/12/2018 14:14:40 05/10/20 18 05/11/2018 pap, IG + HPV, cervi olya test methodology: COMMEN T This liqui d based ThinP rep(R ) pap test was daysi harrison with the use of an image guide dougie bean Not Available [facility] ([facility]) [address] [place], [address], 05/12/2018 14:14:40 05/10/20 18 05/12/2018 pap, IG + HPV, cervi olya HPV aptima NEGATI VE negati ve This test detec ts fourt een high- risk HPV types (16/1 8/31/ 33/35 /39/4 5/ 51/52 /56/5 8/59/ 66/68 ) witho ut barrington alfred . Not Available [facility] ([facility]) [address] [place], [address], 05/12/2018 14:14:40 05/10/20 18 05/15/2018 bacte rial vagin osis + vagin itis panel , vagin al trich vag by JOSE ANTONIO NEGATI VE negati ve Not Available [facility] ([facility]) [address] [place], [address], 05/18/2018 11:36:51 05/10/20 18 05/15/2018 bacte rial vagin osis + vagin itis panel , vagin al chlamydia trachomatis, JOSE ANTONIO NEGATI VE negati ve Not Available [facility] ([facility]) [address] [place], [address], 05/18/2018 11:36:51 05/10/20 18 05/15/2018 bacte rial vagin osis + vagin itis panel , vagin al neisseria gonorrhoeae, JOSE ANTONIO NEGATI VE negati ve Not Available [facility] ([facility]) [address] [place], [address], 05/18/2018 11:36:51 05/10/20 18 05/18/2018 bacte rial vagin osis + vagin itis panel , vagin al atopobium vaginae LOW - 0 score Not Available [facility] ([facility]) [address] [place], [address], 05/18/2018 11:36:51 05/10/20 18 05/18/2018 bacte rial vagin osis + vagin itis panel , vagin al bvab 2 MODERA TE - 1 score Not Available [facility] ([facility]) [address] [place], [address], 05/18/2018 11:36:51 05/10/20 18 05/18/2018 bacte rial vagin osis + vagin itis panel , vagin al megasphaera 1 LOW - 0 score Calcu late total score by maria fernanda polanco the 3 indiv idual bacte rial vagin osis (BV) marke r score s toget her. Total score is inter prete d as follo ws: Total score 0-1: Indic ates the absen ce of BV. Total score 2: Indet ermin ate for BV. Addit ional clini olya data shoul d be evalu ated to estab ryan a diagn osis. Total score 3-6: Indic ates the prese nce of BV. This test was devel oped and its perfo rmanc e paul cteri stics deter mined by [facility]. It has not been clear ed or appro gerardo by the Food and Drug Admin istra tion. The FDA has deter mined that such clear ance or appro annalise is not neces dilan. Not Available [facility] ([facility]) [address] [facility], [place], [address], 05/18/2018 11:36:51 05/10/20 18 05/18/2018 bacte rial vagin osis + vagin itis panel , vagin al prudence albicans, JOSE ANTONIO NEGATI VE negati ve Not Available [facility] ([facility]) [address] [facility], [place], [address], 05/18/2018 11:36:51 05/10/20 18 05/18/2018 bacte rial vagin osis + vagin itis panel , vagin al prudence glabrata, JOSE ANTONIO NEGATI VE negati ve This test was devel maddie and its perfo rmanc e paul cteri stics deter mined by [facility]. It has not been clear ed or appro gerardo by the Food and Drug Admin istra tion. The FDA has deter mined that such clear ance or appro annalise is not neces dilan. Not Available [facility] ([facility]) [address] [place], [address], 05/18/2018 11:36:51 05/10/20 18 05/15/2018 HSV (1+2) DNA, qual, PCR, unspe cifie d speci men hsv 1 JOSE ANTONIO NEGATI VE negati ve Not Available [facility] ([facility]) [address] [place], [address], 05/18/2018 11:36:52 05/10/20 18 05/15/2018 HSV (1+2) DNA, qual, PCR, unspe cifie d speci men hsv 2 JOSE ANTONIO NEGATI VE negati ve Not Available [facility] ([facility]) [address] [facility], [place], [address], 05/18/2018 11:36:52 05/10/20 18 05/12/2018 cultu re, vagin al/re ctal, strep tococ cus group B strep gp B JOSE ANTONIO NEGATI VE negati ve Cente rs for Disea se Contr ol and Preve ntion (CDC) and Ameri can Congr ess of Obste trici ans and Gynec ologi sts (ACOG ) guide lines for preve ntion of perin atal group B strep tococ olya (GBS) disea se speci fy co-co llect ion of a vagin al and recta l swab speci men to maxim ize sensi tivit y of GBS detec tion. Per the CDC and ACOG, swabb ing both the lower vagin a and rectu m subst antia lly incre ases the yield of detec tion leonardo red with sampl ing the vagin a alone . Penic illin G, ampic illin , or cefaz julisa are indic ated for intra partu m proph ylaxi s of perin atal GBS colon izati on. Refle x susce ptibi lity testi ng shoul d be perfo rmed prior to use of clind amyci n only on GBS isola roxana from penic illin -mendez rgic women who are consi dered a high risk for anaph ylaxi s. Treat ment with vanco mycin witho ut addit ional testi ng is warra nted if resis tance to clind amyci n is noted . Not Available [facility] ([facility]) [address] [facility], [place], [address], 05/18/2018 11:36:53 05/10/20 18 05/10/2018 urina lysis , dipst ick Leukocytes Modera te Not Available In-Office Order Internal Use Only DO Not Attach Compendium DO Not Attach Compendium, Do Not Delete/merge, [id number] 05/10/2018 12:05:38 05/10/20 18 05/10/2018 urina lysis , dipst ick Nitrite negati ve Not Available In-Office Order Internal Use Only DO Not Attach Compendium DO Not Attach Compendium, Do Not Delete/merge, [id number] 05/10/2018 12:05:38 05/10/20 18 05/10/2018 urina lysis , dipst ick Urobilinogen 2 Not Available In-Of fice Order Internal Use Only DO Not Attach Compendium DO Not Attach Compendium, Do Not Delete/merge, [id number] 05/10/2018 12:05:38 05/10/20 18 05/10/2018 urina lysis , dipst ick Protein Negati ve Not Available In-Office Order Internal Use Only DO Not Attach Compendium DO Not Attach Compendium, Do Not Delete/merge, [id number] 05/10/2018 12:05:38 05/10/20 18 05/10/2018 urina lysis , dipst ick pH 6.5 Not Available In-Office Order Internal Use Only DO Not Attach Compendium DO Not Attach Compendium, Do Not Delete/merge, [id number] 05/10/2018 12:05:38 05/10/20 18 05/10/2018 urina lysis , dipst ick Blood Non-He molyze d: Trace Not Available In-Office Order Internal Use Only DO Not Attach Compendium DO Not Attach Compendium, Do Not Delete/merge, [id number] 05/10/2018 12:05:38 05/10/20 18 05/10/2018 urina lysis , dipst ick Specific Napoleon 1.010 Not Available In-Off ice Order Internal Use Only DO Not Attach Compendium DO Not Attach Compendium, Do Not Delete/merge, [id number] 05/10/2018 12:05:38 05/10/20 18 05/10/2018 urina lysis , dipst ick Ketone Negati ve Not Available In-Office Order Internal Use Only DO Not Attach Compendium DO Not Attach Compendium, Do Not Delete/merge, [id number] 05/10/2018 12:05:38 05/10/20 18 05/10/2018 urina lysis , dipst ick Bilirubin Negati ve Not Available In-Office Order Internal Use Only DO Not Attach Compendium DO Not Attach Compendium, Do Not Delete/merge, [id number] 05/10/2018 12:05:38 05/10/20 18 05/10/2018 urina lysis , dipst ick Glucose Negati ve Not Available In-Office Order Internal Use Only DO Not Attach Compendium DO Not Attach Compendium, Do Not Delete/merge, [id number] 05/10/2018 12:05:38 05/10/20 18 05/10/2018 pregn gamaliel test, urine HCG negati ve Not Available In-Office Order Internal Use Only DO Not Attach Compendium DO Not Attach Compendium, Do Not Delete/merge, [id number] 05/10/2018 12:05:40 05/12/20 18 05/13/2018 hepat itis panel (A+B+ C), acute , serum hep A Ab, IgM NEGATI VE negati ve Not Available [facility] ([facility]) [address] [facility], [place], [address], 05/13/2018 20:09:54 05/12/20 18 05/13/2018 hepat itis panel (A+B+ C), acute , serum HBsAg screen NEGATI VE negati ve Not Available [facility] ([facility]) [address] [place], [address], 05/13/2018 20:09:54 05/12/20 18 05/13/2018 hepat itis panel (A+B+ C), acute , serum hep B core Ab, IgM NEGATI VE negati ve Not Available [facility] ([facility]) [address] [place], [address], 05/13/2018 20:09:54 05/12/20 18 05/13/2018 hepat itis panel (A+B+ C), acute , serum hep C virus Ab <0.1 s/co_ ratio 0.0-0. 9 Negat daniel: < 0.8 Indet ermin ate: 0.8 - 0.9 Posit daniel: > 0.9 The CDC recom mends that a posit daniel HCV antib charlie resul t be follo wed up with a HCV Nucle ic Acid Ampli ficat ion test (5507 13). Not Available [facility] ([facility]) [address] [facility], [place], [address], 05/13/2018 20:09:54 05/12/20 18 05/13/2018 hepat itis B surfa ce Ab, quali tativ e, serum hep B surface Ab, qual REACTI VE Non React daniel: Incon siste nt with immun ity, less than 10 mIU/m L React daniel: Consi stent with immun ity, great er than 9.9 mIU/m L Not Available [facility] ([facility]) [address] [place], [address], 05/13/2018 20:09:55 05/12/20 18 05/13/2018 trepo nema palli dum scree n, serum , refle x confi rmati on T pallidum antibodies NEGATI VE negati ve Not Available [facility] ([facility]) [address] [facility], [place], [address], 05/13/2018 20:09:55 05/12/20 18 05/13/2018 HIV 1+2 AB + HIV 1 p24 Ag, quali tativ e immun oassa y, serum HIV screen 4TH generation wrfx NON REACTI VE non reacti ve Not Available [facility] ([facility]) [address] [facility], [place], [address], 05/13/2018 20:09:56 05/12/20 18 05/13/2018 HSV 2 IgG Ab, QN, IA, serum hsv 2 IgG, type spec <0.91 index 0.00-0 .90 Negat daniel <0.91 Equiv ocal 0.91 - 1.09 Posit daniel >1.09 Note: Negat daniel indic ates no antib odies detec 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 Equiv ocal may sugge st early infec tion. If clini nikita appro priat e, retes t at later date. Posit daniel indic ates antib odies detec 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 Not Available [facility] ([facility]) [address] [facility], [place], [address], 05/13/2018 20:09:56 07/22/20 19 07/27/2019 bacte rial vagin osis panel , vagin al hsv 1 JOSE ANTONIO NEGATI VE negati ve Not Available [facility] ([facility]) [address] [place], [address], 07/28/2019 14:08:41 07/22/20 19 07/27/2019 bacte rial vagin osis panel , vagin al hsv 2 JOSE ANTONIO NEGATI VE negati ve Not Available [facility] ([facility]) [address] [place], [address], 07/28/2019 14:08:41 07/22/20 19 07/28/2019 bacte rial vagin osis panel , vagin al atopobium vaginae LOW - 0 score Not Available [facility] ([facility]) [address] [facility], [place], [address], 07/28/2019 14:08:41 07/22/20 19 07/28/2019 bacte rial vagin osis panel , vagin al bvab 2 LOW - 0 score Not Available [facility] ([facility]) [address] [facility], [place], [address], 07/28/2019 14:08:41 07/22/20 19 07/28/2019 bacte rial vagin osis panel , vagin al megasphaera 1 LOW - 0 score Calcu late total score by maria fernanda polanco the 3 indiv idual bacte rial vagin osis (BV) marke r score s toget her. Total score is inter prete d as follo ws: Total score 0-1: Indic ates the absen ce of BV. Total score 2: Indet ermin ate for BV. Addit ional clini olya data shoul d be evalu ated to estab ryan a diagn osis. Total score 3-6: Indic ates the prese nce of BV. This test was devel oped and its perfo rmanc e paul cteri stics deter mined by [facility]. It has not been clear ed or appro gerardo by the Food and Drug Admin istra tion. The FDA has deter mined that such clear ance or appro annalise is not neces dilan. Not Available [facility] ([facility]) [address] [facility], [place], [address], 07/28/2019 14:08:41 07/22/20 19 07/28/2019 bacte rial vagin osis panel , vagin al prudence albicans, JOSE ANTONIO NEGATI VE negati ve Not Available [facility] ([facility]) [address] [facility], [place], [address], 07/28/2019 14:08:41 07/22/20 19 07/28/2019 bacte rial vagin osis panel , vagin al prudence glabrata, JOSE ANTONIO NEGATI VE negati ve Not Available [facility] ([facility]) [address] [facility], [place], [address], 07/28/2019 14:08:41 07/22/20 19 07/28/2019 bacte rial vagin osis panel , vagin al trich vag by JOSE ANTONIO NEGATI VE negati ve Not Available [facility] ([facility]) [address] [place], [address], 07/28/2019 14:08:41 07/22/20 19 07/28/2019 bacte rial vagin osis panel , vagin al chlamydia trachomatis, JOSE ANTONIO NEGATI VE negati ve Not Available [facility] ([facility]) [address] [place], [address], 07/28/2019 14:08:41 07/22/20 19 07/28/2019 bacte rial vagin osis panel , vagin al neisseria gonorrhoeae, JOSE ANTONIO NEGATI VE negati ve Not Available [facility] ([facility]) [address] [facility], [place], [address], 07/28/2019 14:08:41 07/22/20 19 07/26/2019 pap, IG + refle x HPV age gdln acog testing 30-65 Not Available [facility] ([facility]) [address] [place], [address], 07/29/2019 06:06:05 07/22/20 19 07/28/2019 pap, IG + refle x HPV diagnosis: COMMEN T NEGAT DANIEL FOR INTRA EPITH ELIAL LESIO N OR BLAYNE SALCIDO . Not Available [facility] ([facility]) [address] [place], [address], 07/29/2019 06:06:05 07/22/20 19 07/28/2019 pap, IG + refle x HPV specimen adequacy: COMMEN T Satis facto ry for evalu ation . Endoc ervic al and/o r squam ous metap lasti c cells (endo cervi olya compo nent) are prese nt. Not Available [facility] ([facility]) [address] [place], [address], 07/29/2019 06:06:05 07/22/20 19 07/28/2019 pap, IG + refle x HPV clinician provided ICD10: ANDIE Garcia Z01.4 19 Z11.5 1 Z12.4 Not Available [facility] ([facility]) [address] [place], [address], 07/29/2019 06:06:05 07/22/20 19 07/28/2019 pap, IG + refle x HPV performed by: Lea Menchaca (ASCP ) Not Available [facility] ([facility]) [address] [place], [address], 07/29/2019 06:06:05 07/22/20 19 07/28/2019 pap, IG + refle x HPV . . Not Available [facility] ([facility]) [address] [place], [address], 07/29/2019 06:06:05 07/22/20 19 07/28/2019 pap, IG + refle x HPV note: ANDIE Garcia The Pap smear is a scree gisell test desig christy to aid in the detec tion of susanna ligna nt and malig nant condi tions of the uteri ne cervi x. It is not a diagn ostic proce dure and shoul d not be used as the sole means of detec ting cervi olya cance r. Both false -posi tive and false -nega tive repor ts do occur . Not Available [facility] ([facility]) [address] [place], [address], 07/29/2019 06:06:05 07/22/20 19 07/28/2019 pap, IG + refle x HPV test methodology: ANDIE Garcia This liqui d based ThinP rep(R ) pap test was scree christy with the use of an image guide dougie bean Not Available [facility] ([facility]) [address] [facility], [place], [address], 07/29/2019 06:06:05 07/22/20 19 07/28/2019 pap, IG + refle x HPV HPV aptima NEGATI VE negati ve This nucle ic acid ampli ficat ion test detec ts fourt een high- risk HPV types (16,1 8,31, 33,35 ,39,4 5,51, 52,56 ,58,5 9,66, 68) witho ut diffe renti ation . Not Available [facility] ([facility]) [address] [facility], [place], [address], 07/29/2019 06:06:05 07/22/20 19 07/22/2019 urina lysis , dipst ick Leukocytes Trace Not Available In-Offi ce Order Internal Use Only DO Not Attach Compendium DO Not Attach Compendium, Do Not Delete/merge, [id number] 07/22/2019 16:24:51 07/22/20 19 07/22/2019 urina lysis , dipst ick Nitrite negati ve Not Available In-Office Order Internal Use Only DO Not Attach Compendium DO Not Attach Compendium, Do Not Delete/merge, [id number] 07/22/2019 16:24:51 07/22/20 19 07/22/2019 urina lysis , dipst ick Urobilinogen .2 Not Available In-Of fice Order Internal Use Only DO Not Attach Compendium DO Not Attach Compendium, Do Not Delete/merge, [id number] 07/22/2019 16:24:51 07/22/20 19 07/22/2019 urina lysis , dipst ick Protein Negati ve Not Available In-Office Order Internal Use Only DO Not Attach Compendium DO Not Attach Compendium, Do Not Delete/merge, [id number] 07/22/2019 16:24:51 07/22/20 19 07/22/2019 urina lysis , dipst ick pH 6.0 Not Available In-Office Order Internal Use Only DO Not Attach Compendium DO Not Attach Compendium, Do Not Delete/merge, [id number] 07/22/2019 16:24:51 07/22/20 19 07/22/2019 urina lysis , dipst ick Blood Non-He molyze d: Trace Not Available In-Office Order Internal Use Only DO Not Attach Compendium DO Not Attach Compendium, Do Not Delete/merge, [id number] 07/22/2019 16:24:51 07/22/20 19 07/22/2019 urina lysis , dipst ick Specific Napoleon 1.015 Not Available In-Off ice Order Internal Use Only DO Not Attach Compendium DO Not Attach Compendium, Do Not Delete/merge, [id number] 07/22/2019 16:24:51 07/22/20 19 07/22/2019 urina lysis , dipst ick Ketone Negati ve Not Available In-Office Order Internal Use Only DO Not Attach Compendium DO Not Attach Compendium, Do Not Delete/merge, [id number] 07/22/2019 16:24:51 07/22/20 19 07/22/2019 urina lysis , dipst ick Bilirubin Negati ve Not Available In-Office Order Internal Use Only DO Not Attach Compendium DO Not Attach Compendium, Do Not Delete/merge, [id number] 07/22/2019 16:24:51 07/22/20 19 07/22/2019 urina lysis , dipst ick Glucose Negati ve Not Available In-Office Order Internal Use Only DO Not Attach Compendium DO Not Attach Compendium, Do Not Delete/merge, [id number] 07/22/2019 16:24:51 08/18/19 20 08/18/2019 US, pelvi s No observ ation record ed. [facility] [address], [place], [address], 09/23/2019 17:20:40 Result Notes None recorded. 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 Active 2015 AJ Farah, [place] - [facility] 8 11:24:47 Hemorrhoids 96593730 Active 2020 Malissa Rodriguez null, [place] - [facility] 1 14:58:52 Chronic idiopathic constipatio n 70170336 Active 2020 Malissa strong, [facility] 1 14:58:54 Acute urinary tract infection 137205640 Completed 07/22/2019 BARAK RUBIN Attn: Melanie polanco,[address] [facility], [place], [address], [place] - [facility] 9 16:51:06 Herpes simplex 35189393 Active Malissa strong, [place] - [facility] 6 12:49:52 Candidiasis 06708939 Completed 07/22/2019 BARAK SANCHES Attn: Melanie g,[address] [facility], [place], [address], [place] - [facility] 9 16:52:59 Bacterial vaginosis 206544706 Active Malissa strong, [place] - [facility] 5 10:06:13 Problem Notes None recorded. Procedures Surgical History Date Name Laterality Status Provider Name and Address Organization Details Recorded Time 11/03/19 21 anal fissurectomy completed Hanh Hess MA [facility] 11/05/2020 11:16:27 07/03/20 19 Date of Last Pap Smear completed Hanh Hess MA [facility] 11/05/2020 11:11:48 10/20/19 08 Caesarean Section completed Luzmaria Noe MA [facility] 07/03/2015 15:51:57 08/03/19 08 ligation of bilateral fallopian tubes completed Hanh Hess MA [facility] 05/10/2018 12:10:38 10/22/19 03 Caesarean Section completed Luzmaria Noe MA [facility] 07/03/2015 15:52:12 Imaging Results Imaging Date Name Status LastModified by Organiz ation Details LastModified Time 08/18/2019 US, pelvis completed [email or web address] [address], [place], [address], 09/23/2019 17:20:40 Procedure Notes None recorded. Medical Equipment None Reported. Allergies Allergen ID Allergen Name Allergen Category Reaction Reaction Severity Criticality Documentation Date Start Date Code Code System Note Provider Name and Address Organization Details Recorded Time 374458 hydrocodo ne Not available abdominal pain Not available Not available 11/05/2020 5489 RxNorm Not Available Not Available Not Available 62788 Product containin g penicilli n (product) medicatio n hives severe Not available 08/09/2014 71365 8001 SNOMED Not Available Not Available Not Available 23183 codeine medicatio n nausea severe Not available 08/09/2014 2670 RxNorm Not Available Not Available Not Available Medications Name Sig Start Date Stop Date Status Note LastModified by Organization Details LastModified Time fluconazo le tab 150mgfluc onazole 05/21 completed Pt states she stopped taking medicati on MS/MA Not Available Not Available Not Available metronida zol tab 500mgmetr onidazole 05/21 completed Not Available Not Available Not Available multivita min tablet Take 1 tablet every day by oral route. 2020 active Not Available Not Available Not Avai lable doxycycli ne hyclate 100 mg capsule 11/05 completed Not Available Not Available Not Available trazodone 50 mg tablet Take 1 tablet every day by oral route. 11/05 completed Not Available Not Available Not Available azithromy david 250 mg tablet ZPK 11/05 completed Not Available Not Available Not Available ibuprofen 800 mg tablet TAKE 1 TABLET BY MOUTH THREE TIMES DAILY NEEDED FOR CRAMPS 07/22 completed Not Available Not Available Not Available fluconazo le 150 mg tablet Take 1 tablet by oral route. 07/22 completed Not Available Not Available Not Available hydrocodo ne 5 mg-acetam inophen 325 mg tablet TAKE 1 TO 2 TABLETS BY MOUTH EVERY 6 HOURS NEEDED FOR PAIN 11/05 completed Not Available Not Available Not Available metronida zole 0.75 % (37.5 mg/5 gram) vaginal gel I 1 APL VAGINALL Y QD HS FOR 5 DAYS 11/05 completed Not Available Not Available Not Available prednison e 20 mg tablet 11/05 completed Not Available Not Available Not Available sertralin e 100 mg tablet Take 1 tablet every day by oral route. 07/22 completed Not Available Not Available Not Available metronida zole 500 mg tablet Take 1 tablet twice a day by oral route. 05/21 completed Not Available Not Available Not Available ciproflox acin 500 mg tablet TK 1 T PO Q 12 H 11/05 completed Not Available Not Available Not Available hydrocodo ne 10 mg-acetam inophen 325 mg tablet 05/21 completed Not Available Not Available Not Available acyclovir 800 mg tablet Take 1 tablet every day by oral route. 07/22 completed Not Available Not Available Not Available ketorolac 10 mg tablet TAKE 1 TABLET BY MOUTH EVERY 6 HOURS FOR 4 DAYS 11/05 completed Not Available Not Available Not Available Vitamin tablet Take 1 tablet every day by oral route as directed . 07/22 completed Not Available Not Available Not Available hydrocort isone 2.5 % topical cream with perineal applicato r APPLY THIN LAYER EXTERNAL LY TO THE AFFECTED AREA 2 TO 4 TIMES DAILY active Not Available Not Available No t Available alprazola m 0.5 mg tablet 05/21 completed Pt states she stopped taking medicati on MS/MA Not Available Not Available Not Available methocarb claude 750 mg tablet 07/22 completed Not Available Not Available Not Available benzonata te 100 mg capsule 11/05 completed Not Available Not Available Not Available hydrocodo ne 7.5 mg-acetam inophen 325 mg tablet 07/22 completed Not Available Not Available Not Available neomycin- polymyxin -dexameth 3.5 mg/mL-10, 000 unit/mL-0 .1% eye drops 08/30 completed Not Available Not Available Not Available omeprazol e 20 mg capsule,d elayed release 07/22 completed Not Available Not Available Not Available oxycodone -acetamin ophen 7.5 mg-325 mg tablet 07/22 completed Not Available Not Available Not Available ondansetr on 4 mg disintegr ating tablet 11/05 completed Not Available Not Available Not Available fluticaso ne propionat e 50 mcg/actua tion nasal spray,evelio pension 07/22 completed Not Available Not Available Not Available doxycycli ne hyclate 100 mg tablet TK 1 T PO BID 11/05 completed Not Available Not Available Not Available naproxen 500 mg tablet 11/05 completed Not Available Not Available Not Available Flexeril 10 mg tablet Take 1 tablet twice a day by oral route. 05/21 completed Pt states she stopped taking medicati on MS/MA Not Available Not Available Not Available Ventolin HFA 90 mcg/actua tion aerosol inhaler INL 2 PFS ITL Q 6 H PRN active Not Available Not Available No t Available lansopraz ole 30 mg delayed release,d isintegra ting tablet 11/05 completed Not Available Not Available Not Available nitrofura ntoin monohydra te/macroc rystals 100 mg capsule Take 1 capsule twice a day by oral route for 5 days. 08/30 completed Not Available Not Available Not Available Clindesse 2 % vaginal cream,ext ended release Insert 1 applicat orful by vaginal route at bedtime. active Not Available Not Available No t Available melatonin active Not Available Not Pricilla ilable Not Available Calcium with Vitamin D 600 mg-10 mcg (400 unit) tablet Take 1 tablet twice a day by oral route. 2020 active Not Available Not Available Not Avai lable ProChambe r USE UTD active Not Available Not Available Not Available Lo Loestrin Fe 1 mg-10 mcg (24)/10 mcg (2) tablet Take 1 tablet every day by oral route. 07/22 completed Not Available Not Available Not Available calcium 600 mg (as carbonate )-vitamin D3 20 mcg (800 unit) tablet Take 1 tablet twice a day by oral route for 30 days. 07/22 completed Not Available Not Available Not Available Linzess 145 mcg capsule TAKE 1 CAPSULE BY MOUTH EVERY DAY 11/05 completed Not Available Not Available Not Available Gynazole- 1 2 % vaginal cream Insert 1 applicat orful by vaginal route. active Not Available Not Available No t Available Virtussin AC 10 mg-100 mg/5 mL oral liquid 05/21 completed Not Available Not Available Not Available Breo Ellipta 200 mcg-25 mcg/dose powder for inhalatio n INL 1 PUFF PO D active Not Available Not Available No t Available Solosec [address] granules in packet 07/22 completed Not Available Not Available Not Available Slynd 4 mg (28) tablet Take 1 tablet every day by oral route. 11/05 completed Not Available Not Available Not Available Fluzone Quad (PF) 60 mcg (15 mcg x 4)/0.5 mL IM syringe PHARMACI ST ADMINIST ERED IMMUNIZA TION ADMINIST ERED AT TIME OF DISPENSI NG active Not Available Not Available No t Available Vitals Date Recorded Body height Body mass index (BMI) Body weight Systolic blood pressure Diastolic blood pressure Provider Name and Address Organization Details Last Updated DateTime 05/10/2018 165.1 cm 29 kg/m2 08363.07 g 120 mm[Hg] 80 mm[Hg] Hanh Hess MA [facility] 8 12:16:09 Date Recorded Body height Body mass index (BMI) Body weight Systolic blood pressure Diastolic blood pressure Provider Name and Address Organization Details Last Updated DateTime 05/12/2019 165.1 cm 30.3 kg/m2 52918.81 g 108 mm[Hg] 64 mm[Hg] Luzmaria Noe MA [facility] 9 15:04:32 Date Recorded Body height Body mass index (BMI) Body weight Heart rate Body temperature Oxygen saturation Oxygen saturation in Arterial blood by Pulse oximetry Systolic blood pressure Diastolic blood pressure Provider Name and Address Organization Details Last Updated DateTime 9 165.1 cm 30.5 kg/m2 27043.4 g 79 /min 98.6 [degF] 99 % 99 % 100 mm[Hg] 70 mm[Hg] Alexandra Snow MA [facility] 9 16:32:55 Date Recorded Body height Body mass index (BMI) Body weight Systolic blood pressure Diastolic blood pressure Provider Name and Address Organization Details Last Updated DateTime 08/30/2019 165.1 cm 30.6 kg/m2 86951 g 112 mm[Hg] 74 mm[Hg] Amber Dickson MA [facility] 0 17:08:48 Date Recorded Body height Body mass index (BMI) Body weight Systolic blood pressure Diastolic blood pressure Provider Name and Address Organization Details Last Updated DateTime 11/05/2020 165.1 cm 31.5 kg/m2 18334.96 g 114 mm[Hg] 68 mm[Hg] Hanh Hess MA [facility] 1 11:18:51 Social History Question Answer Notes LastModified by Organization Details LastModified Time Tobacco Smoking Status Never Smoker Mary Alcantara [facility], [facility] 08/09/2014 12:57:39 Do You Have An Advance Directive? No Information not available 07/03/2015 What Is Your Level Of Alcohol Consumption? None Information not available 11/05/2020 Is Blood Transfusion Acceptable In An Emergency? Yes Information not available 07/03/2015 What Is Your Level Of Caffeine Consumption? Heavy Information not available 07/03/2015 How Much Tobacco Do You Chew? None Information not available 07/03/2015 In The 14 Days Before Symptom Onset, Have You Had Close Contact With A Laboratory-confi rmed COVID-19 While That Case Was Ill? No Information not available 11/05/2020 In The 14 Days Before Symptom Onset, Have You Had Close Contact With A Person Who Is Under Investigation For COVID-19 While That Person Was Ill? No Information not available 11/05/2020 Have You Been To An Area Known To Be High Risk For COVID-19? No Information not available 11/05/2020 Are You Currently Employed? Yes Information not available 07/03/2015 What Type Of Diet Are You Following? REGULAR Information not available 07/03/2015 Which Illicit Or Recreational Drugs Have You Used? Denies Pt States No Illegal Drugs [email or web address] Information not available 05/10/2018 Do You Or Have You Ever Used E-cigarettes Or Vape? Never Used Electronic Cigarettes Information not available 08/30/2019 Education 12 Information not available 07/03/2015 What Is The Highest Grade Or Level Of School You Have Completed Or The Highest Degree You Have Received? [id number] Information not available 11/05/2020 What Is Your Occupation? [employer] Information not available 07/03/2015 Have There Been Any Changes To Your Family Or Social Situation? No Information not available 11/05/2020 Live Alone Or With Others? With Others Information not available 07/03/2015 What Was The Date Of Your Most Recent Tobacco Screening? 07/22/2019 [email or web address] Information not available 07/22/2019 How Many Children Do You Have? 2 Information not available 07/03/2015 Performs Monthly Self-breast Exam? No Information not available 07/03/2015 Do You Have Any Pets? Yes Fanny Gonzalez Information not available 11/05/2020 Do You Use Protection During Sex? No Information not available 07/03/2015 What Is Your Relationship Status? Single Information not available 07/03/2015 Do You Use Your Seat Belt Or Car Seat Routinely? Yes Information not available 11/05/2020 Seat Belts Used Routinely Yes Information not available 07/03/2015 Are You Sexually Active? Yes Information not available 07/03/2015 Do You Have Smoke And Carbon Monoxide Detectors In Your Home? Yes Information not available 11/05/2020 Are You Passively Exposed To Smoke? No Information not available 11/05/2020 Do You Or Have You Ever Used Smokeless Tobacco? Never Used Smokeless Tobacco Information not available 08/30/2019 How Much Tobacco Do You Smoke? No [email or web address] Information not available 05/10/2018 General Stress Level Low Information not available 07/03/2015 Do You Feel Stressed (tense, Restless, Nervous, Or Anxious, Or Unable To Sleep At Night)? [id number] Information not available 11/05/2020 Do You Use Any Illicit Or Recreational Drugs? No Information not available 11/05/2020 Do You Use Sunscreen Routinely? Yes Information not available 07/03/2015 On What Date Was Tobacco Cessation Counseling Provided? 08/30/2019 Information not available 08/30/2019 How Many Years Have You Smoked Tobacco? 0 [email or web address] Information not available 05/10/2018 Do You Or Have You Ever Used Any Other Forms Of Tobacco Or Nicotine? No Information not available 11/05/2020 Sex: Female Functional Status Question Answer Note LastModified by Organization D etails LastModified Time What is your exercise level? None Information not available 07/03/2015 Mental Status None recorded. Family History Nothing Reported. Medical History Condition Response Coronary Artery Disease N Kidney Cyst N Blood Diseases N Hyperthyroidism N Blood Transfusion N MRSA N Blood disorders N Emphysema N Blood Clots N COPD N Depression N Pneumonia N Premature N Peripheral Arterial Disease N Edema N TIA N Headaches/Migraines N Anxiety Disorder N Obesity N Infertility N Polyps N Acid Reflux (GERD) N Hematuria N Stroke N Neck Injury N Polio N Hospital Admission other than N Neurologic Disorder N Other Sleep Disorders N Rheumatoid Arthritis N Fibromyalgia N Abdominal Aortic Aneurysm Repair N Kidney Disease N Heart Conditions N Heart Disease/Heart Problems N Hospitalizations N Brain Tumors N Acne N Skin Problems N Eating Disorder N Meningitis N Constipation N Tuberculosis N Cerebral Palsy N Myocardial Infarction N Asthma N Substance Abuse N Peripheral Vascular Disease N Vertigo N Sleep Disorder N Cirrhosis N Pulmonary Embolism N Chicken Pox N Hematologic Disease N Flomax Use Past or Present N Anxiety/Depression N Thyroid Disease N Colon Cancer N Lung Disease N Glaucoma N Developmental or Behavioral Disorders N Bipolar N Pacemaker N Diverticulitis/Diverticulosis N Orthopedic Problems N Anesthesia Complications N Orthotics N Head Injury/Concussion N Congenital Anomalies N Holder Bite N Chronic Kidney Disease N Endometriosis N Liver Disease N Schizophrenia N Dialysis N Speech Delay N Chronic Obstructive Pulmonary Disease N Parkinson's Disease N Thyroid Problems N GI Problems N Developmental Delay N Anemia N Multiple Sclerosis N Immune System Disorder N Colon Polyps N Heart Attack (SC) N Diabetes N Cardiomyopathy N Blood Transfusions N Heart Problems/Murmur N Eye Trauma N Congestive Heart Failure (CHF) N Valvular Heart Disease N Hyperlipidemia N Double Vision N Abuse/Domestic Violence N Hepatitis B N Lupus N Epilepsy/Seizures N Reflux/GERD N Aneurysm N Heart Disease N Bronchitis N Pre-Eclampsia N Hypertension N Heart Failure N Other N Gout N High Blood Pressure N Atrial Fibrillation N Kidney Stones N Head Trauma/Injury N Congenital Heart Disease N Spine Problems N Gastrointestinal Disease N Lung Mass N Sinusitis N Obstructive Sleep Apnea N Muscle, Joint, or Bone Problems N Autoimmune disease N Vision or Eye Problems N Arthritis N Blood Clot N Cancer N Seasonal allergies N Leg or Foot Ulcers N Raynaud's Disease N Aortic Aneurysm N Arrhythmia N Headaches N Heart Problems N Ambloypia N Ear or Hearing Problems N Hyperparathyroidism N Migraines N Artificial Joints N Kidney or Bladder Problems N NSAID Use N Encephalitis N PTSD N Ulcers N Prostate Hypertrophy N Bleeding Disorder N AIDS/HIV N Urinary Tract Infection N Back Problems N Allergies N Atrial Flutter N GERD/Reflux N Hepatitis N Autism Spectrum Disorder (ASD) N Breast Cancer N Hernia N Hypothyroidism N Breast Problem N Genitourinary Disease N Deep Vein Thrombosis N Varicose Veins N Cystic Fibrosis N Hearing Loss N Developmental Problems N Carotid Disease N Vitamin D Deficiency N ADHD N Bladder or Kidney Problems N High Cholesterol N Meniers N Valvular Abnormalities N Psychiatric/Mental Health Condition N Organ Transplant N Foot Deformity N Allergies/Hayfever N Dyslipidemia N Hyponatremia N Diabetic Eye Disease N Osteoporosis/Osteopenia N Back Pain N Proteinuria N Mental Illness N Neurological Problems N Ovarian Cancer N Bedwetting N Seizures/Epilepsy N Kidney Failure N Ocular trauma N Diverticulitis N Dementia N Sleep Apnea N Mental Problems N Warfarin Management N Osteoporosis N Gynecological History Statement/Question Response Abnormal Pap Yes Flow Moderate Date of LMP 11/01/2020 STIs/STDs N HPV Vaccine Y Duration of Flow (days) 4 Age at Menarche Current Control Method Tubal Ligat ion Age at First Child 17 Frequency of Cycle (Q days) 28 Sexually Active? Y Menses Monthly Y Date of Last Pap Smear 07/03/2019 Sexual Problems? N LMP Approximate Desired Control Method Sterilizati on Obstetrics History GPAL:G 2 P 1 1 0 2 Type Value Multiple Births 0 Full Term 1 Induced 0 Spontaneous 0 Premature 1 Living 2 Ectopics 0 Total 2 Immunizations Vaccine Type Date Status Note Provider Nam e and Address Organization Details Recorded Time Influenza, split virus, trivalent, PF 5 completed Not Available [facility] 08/20/2019 02:31:44 COVID-19, mRNA, LNP-S, PF, 30 mcg/0.3 mL dose 1 completed [place]etta [place], [place] - [facility] 02/28/2021 11:39:59 COVID-19, mRNA, LNP-S, PF, 30 mcg/0.3 mL dose 1 completed [place], [place] - [facility] 02/28/2021 11:42:50 Influenza, split virus, quadrivalent, preservative 6 completed Mal[place], [place] - [facility] 05/21/2016 13:59:52 Past Encounters Encounter ID Performer Location Encounter Start Date Encounter Closed Date Diagnosis/Indication Diagnosis SNOMED-CT Code Diagnosis ICD10 Code Diagnosis Note [id number] 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) [address] [place] [address] 08/09/2014 12:06:28 08/09/2014 14:35:16 Family planning surveillance [id number] Candidiasis 90165532 Administra tion of influenza vaccine [id number] Malissa Langford ([employer]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) [address] [place] [address] 07042-818 0 07/03/2015 14:56:32 07/03/2015 17:16:54 Bacterial vaginosis 587034349 N76.0 Candidiasis 34146326 B37 .9 Family elina nning surveillance 032970818 Z30.09 Female sterilization 608 51379 Z30.2 [id number] Malissa Langford (AM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) [address] [place] [address] 14806-938 0 05/21/2016 11:36:08 05/22/2016 10:03:12 Gynecologic examination 51680742 Z01.411 Bacterial vaginosis 4197 83334 N76.0 Genital he rpes simplex 24175245 A60.9 [id number] Malissa Luis Langford (AM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) [address] [place] [address] 0 05/10/2018 11:00:08 05/10/2018 13:33:38 Genital herpes simplex 13596585 A60.9 Gynecologi c examination 58050703 Z01.411 Exposure t o sexually transmissible disorder 533865394 Z20.2 Acute urin escobar tract infection 380794795 N39.0 Depressive disorder 3548 9007 F32.9 Bacterial vaginosis 4197 73913 N76.0 [id number] Malissa Langford (AM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) [address] [place] [address] 80588-925 0 05/12/2019 14:37:13 05/16/2019 14:15:11 Recurrent urinary tract infection 015783889 N39.0 Candidiasis 66191057 B37 .9 Family elina nning surveillance 896185641 Z30.09 [id number] BARAK ORO (AM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) [address] [place] [address] 98282-[address] 0 07/22/2019 16:13:46 07/25/2019 11:20:05 Gynecologic examination 28744142 Z01.419 Z11.51 Z12.4 Venereal d isease screening 187551583 Z11.3 Body mass index 30+ - obesity 477970072 Z68.30 [id number] Malissa KilgoreLuisefrain Langford (AM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) [address] [place] [address] 08/30/2019 16:51:13 08/31/2019 12:48:35 Abnormal progesterone 850806925 R94.7 R93.89 Family elina nning surveillance 913218500 Z30.09 [id number] Malissa KilgoreLuis 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) [address] [place] [address] 11/05/2020 10:46:01 11/05/2020 20:41:29 Gynecologic examination 18397533 Z01.419 Z11.51 Bacterial vaginosis 4197 94982 N76.0 Venereal d isease screening 844455459 Z11.3 Candidiasis of vagina 72 650147 B37.3 Health Concerns Section Related Observation LastModified by Organization Detai ls LastModified Time None Recorded Concern Status LastModified by Organization Details LastModified Time None Recorded Advance Directives Directive N: Payers Encounter Date Sequence Insurance Name Policy Number Policy Whitman Covered Member ID Whitman Member ID Guarantor Name 05/10/2018 1 [facility] [id number] Crystal Alarcon [id number] Crystal Alarcon 05/12/2019 1 [facility] [id number] Crystal Alarcon [id number] Crystal Alarcon 07/22/2019 1 [facility] [id number] Crystal Alarcon [id number] Crystal Alarcon 08/30/2019 1 [facility] [id number] Crystal Alarcon [id number] Crystal Alarcon 11/05/2020 1 [facility] [id number] Crystal Alarcon [id number] Crystal Alarcon Notes Date Note Type Note Provider Name and Address Organization Details Recorded Time 05/10/2018 text/html Annual GYNReport ed bypatient.History:no change in interval history Menstrual cycle:Normal menses Urinary symptoms:No hematuria; No incontinence;Burning sensation during urination;Increased urinary frequency Vulva:No genital lesion Vagina:Foul-smelling ;White;Vaginal burning Breast:No breast pain; No breast lump; No nipple discharge Current Contraception:Satisf ied with current contraception; Monogamous relationship; Tubal ligation; Requests testing for sexually transmitted infections Sexual complaints:No sexual complaints; No pain during intercourse; Normal libido Menopausal Symptoms:No menopausal symptoms; Normal vaginal lubrication Psychological symptoms:No depression; No anxiety; No PMDD Preventive measures:Encourage self breast examination; Encourage regular exercise; Encourage no tobacco use; Encourage regular mammograms starting age 40; Followed with Q3 year pap smear and high risk HPV typing 32 yo WF, , 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 C/o irritative voiding symptoms and vaginal odor. Had friend pass away recently and is feeling depressed and having trouble sleeping. 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 h/o recurrent uti , prudence and bv CEZAR Waldrop 05/12/2019 15:29:59 07/22/2019 text/html Annual GYNReport ed bypatient.Menstrual cycle:Normal menses Urinary symptoms:No hematuria; No incontinence Vulva:No genital lesion Vagina:Yellow-green, thick Breast:No breast pain; No breast lump; No nipple discharge Current Contraception:Tubal ligation Sexual complaints:No sexual complaints; No pain during intercourse; Normal libido Menopausal Symptoms:No menopausal symptoms; Normal vaginal lubrication Psychological symptoms:No depression; No anxiety; No PMDD Preventive measures:Encourage self breast examination; Encourage regular exercise; Encourage no tobacco use; Encourage regular mammograms starting age 40; Followed with yearly pap smears 33yo F presents for annual WWE/routine Pap. H/o HPV, followed with yearly pap smears. She reports increase in discharge and cramping for a few weeks. Denies odor, vaginal irritation. BARAK ORO Attn: Accounting,[address] [place], [address], [facility] 07/22/2019 16:57:44 08/30/2019 text/html 33yo WF her e for lab results from transvaginal US for pain/cramping Malissa strong, [place] - [facility] 08/30/2019 17:53:46 11/05/2020 text/html Annual GYNReport ed bypatient.History:no gynecologic complaints Menstrual cycle:Normal menses Urinary symptoms:No hematuria; No incontinence Vulva:No genital lesion Vagina:Normal vaginal discharge; reports copious amounts of foul smelling vaginal discharge after menses and intercourse monthly. It persists for weeks if not treated with metronidazole. She is starting probiotics and cranbery pills d/t $40 cost of metrogel. 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 h/o HPV, recurrent uti , prudence, bv, chronic idiopathic constipation, and external thrombosed hemorrhoids. Last PAP 07/2019 normal, HPV (-). Malissa strong, [facility] 11/05/2020 14:43:52 OBGyn Episode Ob Episode Information Episode Created Date Number of Fetuses Patient Bloodtype Patient rh Status Prepregnancy Weight lbs Domestic Partner Domestic Partner Phone Father Name Wood Repatcher Status 07/03/20 15 1 CLOSED Fetus Data First Name Last Name Admitted to NICU Weight (g) Sex Living Outcome Pediatric Complications Fetus ID Race Codes Race Delivery Type 2608.15 4 F Prematur e [id number] Wilbert Calculation Initial Wilbert Date Initial Exam Date Initial Exam Provider Initial Ultrasound Date Last Menstrual Period Date Ultra Sound Weeks Gestation 0 Eighteen To Twenty Week Wilbert Update Ultra Sound Date Fundal Height At Umbil Quickening Date Ultra Sound Latest Weeks Gestation Final Wilbert Confirmed By Final Wilbert Confirmed Date Final Wilbert Date Ultra Sound Latest Days Gestation 0 0 Menstrual History Last Menstrual Date Menses Monthly On Bcp Conception Prior Menses Frequency Hcg Plus Date Menarche Onset Age Delivery Information Delivery Date Delivery Type Labor Anesthesia Weeks Gestation Incision Type Labor Labor Length Hrs Delivered By Post Complications Tubal Sterilization Discharge Date Comments 8 [facility] 35 true 10 Delores Discharge Information Feeding Method Contraceptive Method Maternal HG B and HCT Levels Ob Episode Information Episode Created Date Number of Fetuses Patient Bloodtype Patient rh Status Prepregnancy Weight lbs Domestic Partner Domestic Partner Phone Father Name Wood Repatcher Status 07/03/20 15 1 CLOSED Fetus Data First Name Last Name Admitted to NICU Weight (g) Sex Living Outcome Pediatric Complications Fetus ID Race Codes Race Delivery Type 3401.94 F Full Term [id number] Wilbert Calculation Initial Wilbert Date Initial Exam Date Initial Exam Provider Initial Ultrasound Date Last Menstrual Period Date Ultra Sound Weeks Gestation 0 Eighteen To Twenty Week Wilbert Update Ultra Sound Date Fundal Height At Umbil Quickening Date Ultra Sound Latest Weeks Gestation Final Wilbert Confirmed By Final Wilbert Confirmed Date Final Wilbert Date Ultra Sound Latest Days Gestation 0 0 Menstrual History Last Menstrual Date Menses Monthly On Bcp Conception Prior Menses Frequency Hcg Plus Date Menarche Onset Age Delivery Information Delivery Date Delivery Type Labor Anesthesia Weeks Gestation Incision Type Labor Labor Length Hrs Delivered By Post Complications Tubal Sterilization Discharge Date Comments 3 [facility] 40 false 15 Makeie Discharge Information Feeding Method Contraceptive Method Maternal HG B and HCT Levels
--- OUTSIDE RECORDS SUMMARY | 2024-09-25 09:16 | XMS_ITS | Referral Summary ---
Author Organization [facility] [place] [address] Address [address] [place] [address] Care Team Providers Care Part Maker Name Role Phone Stan Aguirre DO Primary Care Provide r Nettie Muller ILLUMINATING ENGINEER Unavailable [phone] Allergies Active Allergy Reactions Criticality Noted Date [...] Noted Date Diagnosed Date Sinus bradycardia 01/23/2023 Social History Tobacco Use Types Packs/Day Years Used Date Smoking Tobacco: Never Tobacco Cessation:Counseling Given: Not Answered Comments Unknown Sex and Gender Information Value Date Recorded Sex Assigned at Not on file Legal 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 Gender Identity Not on file Sexual Orientation Not on file Last Filed Vital Signs Vital Sign Reading [...] 01/23/2023 9:17 AM CDT Plan of Treatment Not on file Insurance [facility] [employer] [facility] [employer] Address: [place] [address] [facility] [employer] Address: [address] [address] [place] [address] [facility] [employer] Address: [address] [address] [place] [phone] Care Teams Part Maker Relationship Specialty Start Date End Date Stan Aguirre DO [address] [place] [address] PCP - General Family Medicine 01/23/23 Nettie Muller NP [address] [place] [address] Nurse Practitioner Obstetrics and Gynecology 01/23/23
--- OUTSIDE RECORDS SUMMARY | 2024-09-25 09:16 | XMS_ITS | Data Portability ---
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 Patient will come back in a year unless there are new symptoms. pearl Not available 10/26/2023 09:42:19 Plan of Treatment Reminders Order Date Submit Date Provider Last Modified By Organization Details Last Modified Time Details Appointments [facility] 2024 04:00P AGUSTINA Miguel Not available Not available Not available Lab urinalysi s, dipstick 2022 023 [facility], [address], [place], [address], 07/02/2023 11:48:58 Referral None recorded. Procedures None recorded. Surgeries None recorded. Imaging MAMMO, diagnosti c, digital, bilateral - left breast lump/tend erness, around 8oclock 2023 024 [facility], [address], [place], [address], 05/01/2024 05:01:18 US, breast, unilatera l 2023 024 [facility], [address], [place], [address], 05/01/2024 05:01:18 Medication Orders fluconazo le 150 mg tablet [address] [id number], [address] [facility], [place], [place], [id number], 10/26/2023 09:42:52 nystatin- triamcino lone 100,000 unit/gram -0.1 % topical ointment [address] [facility][id number], [address] [facility], [place], [place], [id number], 10/26/2023 09:42:57 Cipro 500 mg tablet 2022 023 [facility] #[id number], [address] [facility], [place], [place], [id number], 07/02/2023 11:30:54 Contrave 8 mg-90 mg tablet,ex tended release 2022 023 [facility] #[id number], [address] [facility], [place], [place], [id number], 07/02/2023 11:30:57 Patient TargetsNo targets recorded. Patient InstructionsNo instructions recorded. Reason for Referral None Reported. Results Created Date Observation Date Name Description Value Unit Range Abnormal Flag Note LastModifiedBy Organization Detail LastModifiedTime 11/13/1911/12/2022 CBC W/DIF F WBC 4.7 10'3/ uL 3.6-10 .2 Not Available [facility] (Lab) [address], [place], [address], 11/22/2022 18:18:49 11/13/1911/12/2022 CBC W/DIF F RBC 3.84 10'6/ uL (based on docume nted legal sex) 4.10-5 .30 low Not Available [facility] (Lab) [address], [place], [address], 11/22/2022 18:18:49 11/13/19 23 11/12/2022 CBC W/DIF F HGB 10.7 g/dL (based on docume nted legal sex) 11.9-1 5.8 low Not Available [facility] (Lab) [address] [facility], [place], [address], 11/22/2022 18:18:49 11/13/19 23 11/12/2022 CBC W/DIF F HCT 36.3 % (based on docume nted legal sex) 37.4-4 8.3 low Not Available [facility] (Lab) [address] [facility], [place], [address], 11/22/2022 18:18:49 11/13/19 23 11/12/2022 CBC W/DIF F MCV 94.5 fL 82.0-9 9.0 Not Available [facility] (Lab) [address] [facility], [place], [address], 11/22/2022 18:18:49 11/13/19 23 11/12/2022 CBC W/DIF F MCH 27.9 pg 27.0-3 3.0 Not Available [facility] (Lab) [address] [facility], [place], [address], 11/22/2022 18:18:49 11/13/19 23 11/12/2022 CBC W/DIF F MCHC 29.5 g/dL 32.0-3 6.0 low Not Available [facility] (Lab) [address] [facility], [place], [address], 11/22/2022 18:18:49 11/13/19 23 11/12/2022 CBC W/DIF F RDW 14.7 % 11.0-1 5.0 Not Available [facility] (Lab) [address] [facility], [place], [address], 11/22/2022 18:18:49 11/13/19 23 11/12/2022 CBC W/DIF F plt 295 10'3/ uL 150-45 0 Not Available [facility] (Lab) [address] [facility], [place], [address], 11/22/2022 18:18:49 11/13/19 23 11/12/2022 CBC W/DIF F MPV 10.1 fL 9.8-12 .7 Not Available [facility] (Lab) [address] [facility], [place], [address], 11/22/2022 18:18:49 11/13/19 23 11/12/2022 CBC W/DIF F NRBC's 0.0 % 0 Not Available [facility] (Lab) [address], [place], [address], 11/22/2022 18:18:49 11/13/19 23 11/12/2022 CBC W/DIF F absolute NRBCs 0.0 10'3/ uL 0 Not Available [facility] (Lab) [address] [facility], [place], [address], 11/22/2022 18:18:49 11/13/19 23 11/12/2022 CBC W/DIF F neutrophils 59.5 % 37.0-7 2.0 Not Available [facility] (Lab) [address] [facility], [place], [address], 11/22/2022 18:18:49 11/13/19 23 11/12/2022 CBC W/DIF F lymphocytes 31.5 % 16.0-4 8.0 Not Available [facility] (Lab) [address] [facility], [place], [address], 11/22/2022 18:18:49 11/13/19 23 11/12/2022 CBC W/DIF F monocytes 6.2 % 4.0-14 .0 Not Available [facility] (Lab) [address] [facility], [place], [address], 11/22/2022 18:18:49 11/13/19 23 11/12/2022 CBC W/DIF F eosinophils 1.5 % 0.0-9. 0 Not Available [facility] (Lab) [address], [place], [address], 11/22/2022 18:18:49 11/13/19 23 11/12/2022 CBC W/DIF F basophils 1.1 % 0.0-2. 0 Not Available [facility] (Lab) [address] [facility], [place], [address], 11/22/2022 18:18:49 11/13/19 23 11/12/2022 CBC W/DIF F immature granulocytes 0.2 % no define d refere nce range Not Available [facility] (Lab) [address], [place], [address], 11/22/2022 18:18:49 11/13/19 23 11/12/2022 CBC W/DIF F absolute neutrophils 2.8 10'3/ uL 1.1-6. 0 Not Available [facility] (Lab) [address], [place], [address], 11/22/2022 18:18:49 11/13/19 23 11/12/2022 CBC W/DIF F absolute lymphocytes 1.5 10'3/ uL 0.7-3. 4 Not Available [facility] (Lab) [address] [facility], [place], [address], 11/22/2022 18:18:49 11/13/19 23 11/12/2022 CBC W/DIF F absolute monocytes 0.3 10'3/ uL 0.3-1. 0 Not Available [facility] (Lab) [address] [place], [address], 11/22/2022 18:18:49 11/13/19 23 11/12/2022 CBC W/DIF F absolute eosinophils 0.1 10'3/ uL 0.0-0. 6 Not Available [facility] (Lab) [address], [place], [address], 11/22/2022 18:18:49 11/13/19 23 11/12/2022 CBC W/DIF F absolute basophils 0.1 10'3/ uL 0.0-0. 1 Not Available [facility] (Lab) [address] [facility], [place], [address], 11/22/2022 18:18:49 11/13/19 23 11/12/2022 CBC W/DIF F absolute immature granulocytes 0.0 10'3/ uL 0.00-0 .10 2022 2:23 AM: P indic ates parti al resul ts on a panel have been relea sed. Addit ional resul ts will follo w. 2022 2:23 AM: This resul t has been final verif ied. No addit ional or cronin ed resul ts are expec phoebe. Not Available [facility] (Lab) [address] [facility], [place], [address], 11/22/2022 18:18:49 11/13/19 23 11/12/2022 DHEA SULFA TE DHEA-sulfate 168 ug/dL Femal e Range s Age(y ) Range (ug/d L) 10-15 34-28 0 15-20 65-36 8 20-25 148-4 07 25-35 99-34 0 35-45 61-33 7 45-55 35-25 6 55-65 19-20 5 65-75 9-246 > 75 12-15 4 Not Available [facility] (Lab) [address] [facility], [place], [address], 11/22/2022 18:18:49 11/13/19 23 11/12/2022 PROGE STERO NE progesterone 0.23 NG/mL This assay was perfo rmed using [employer] ratio n reage nts and test kits. Value s obtai christy with other assay metho ds or kits canno t be used inter cronin eajony . Femal e Proge stero ne Range s: Folli cular phase 0.06- 0.89 ng/mL Ovula tion phase 0.12- 12.00 ng/mL Lutea l phase 1.83- 23.90 ng/mL Postm enopa usal< 0.05- 0.13 ng/mL Healt hy Pregn ant Women 1st Trime ster1 1.0-4 4.30 2nd Trime ster2 5.40- 83.30 3rd Trime ster5 8.70- 214.0 0 Not Available [facility] (Lab) [address] [place], [address], 11/22/2022 18:18:50 11/13/19 23 11/12/2022 PROLA CTIN prolactin, total 8.29 NG/mL 4.79-2 3.30 This assay was perfo rmed using [employer] reage nts and test kits. Value s obtai christy with other assay metho ds or kits canno t be used inter [facility] . Not Available [facility] (Lab) [address] [place], [address], 11/22/2022 18:18:50 11/13/19 23 11/12/2022 FSH, LH, ESTRA DIOL estradiol 257.0 pg/mL This assay was perfo rmed using [employer] reage nts and test kits. Value s obtai christy with other assay metho ds or kits canno t be used inter [facility] . Femal e Estra diol Range s: Folli cular phase 12.4- 233 pg/mL Ovula tion phase 41.0- 398 pg/mL Lutea l phase 22.3- 341 pg/mL Postm enopa usal< 5-138 pg/mL Healt hy Pregn ant Women 1st Trime ster1 54-32 43 pg/mL 2nd Trime ster1 561-2 1280 pg/mL 3rd Trime ster8 525-> 35635 pg/mL Not Available [facility] (Lab) [address] [place], [address], 11/22/2022 18:18:51 11/13/19 23 11/12/2022 FSH, LH, ESTRA DIOL FSH 4.6 mIU/m L This assay was perfo rmed using [employer] reage nts and test kits. Value s obtai christy with other assay metho ds or kits canno t be used inter [facility] . Femal es Folli cular : 3.5-1 2.5 mIU/m L Ovula tion: 4.7-2 1.5 mIU/m L Lutea l: 1.7-7 .7 mIU/m L Postm enopa use: 25.8- 134.8 mIU/m L Not Available [facility] (Lab) [address] [facility], [place], [address], 11/22/2022 18:18:51 11/13/19 23 11/12/2022 FSH, LH, ESTRA DIOL LH 11.2 mIU/m L This assay was perfo rmed using [employer] reage nts and test kits. Value s obtai christy with other assay metho ds or kits canno t be used inter [facility] . Femal es Mid-F ollic ular: 2.4-1 2.6 mIU/m L Mid-C ycle: 14.0- 95.6 mIU/m L Mid-L uteal : 1.0-1 1.4 mIU/m L Postm enopa use: 7.7-5 8.5 mIU/m L Not Available [facility] (Lab) [address] [facility], [place], [address], 11/22/2022 18:18:51 11/13/19 23 11/12/2022 TSH, REFLE X FREE T4 TSH 1.42 uIU/m L 0.30-5 .33 Not Available [facility] (Lab) [address] [facility], [place], [address], 11/22/2022 18:18:51 11/13/19 23 11/12/2022 HUMAN SEX HORMO NE ADALGISA NG GLOBU QUIANA sex hormone binding globulin 49.7 nmole s/L 18.2-1 35.5 Not Available [facility] (Lab) [address] , [place], [address], 11/22/2022 18:18:51 11/13/19 23 11/12/2022 HEMOG LOBIN A1C hemoglobin A1C 5.4 % 0-5.6 The Ameri can [employer]abe roxana [employer]oc iatio n recom mends that a prima ry goal of thera py shoul d be a HBA1C of < 7% and that physi cians shoul d reeva luate the treat ment regim en in patie nts with HBA1C value s consi stent ly > 8%. <5.7% Ninfa l 5.7 - 6.4% Incre ased risk for diabe roxana >=6.5 % Diagn ostic of diabe roxana <7.0% Goal of thera py >8.0% Actio n sugge sted Not Available [facility] (Lab) [address] , [place], [address], 11/22/2022 18:18:52 11/13/19 23 11/12/2022 17-OH PROGE STERO NE 17-hydroxypr ogesterone, lc/MS/MS 34 NG/dL Adult Femal e Refer ence Range s for 17-Hy droxy proge stero ne: Pre-M enopa usal Mid Folli cular : 23-10 2 ng/dL Pre-M enopa usal Surge : 67-34 9 ng/dL Pre-M enopa usal Mid Lutea l: 139-4 31 ng/dL Postm enopa usal Phase : < or = 45 ng/dL Pregn gamaliel: First Trime ster: 78-45 7 ng/dL Secon d Trime ster: 90-35 7 ng/dL Third Trime ster: 144-5 78 ng/dL This test was devel oped and its blossom tical perfo rmanc e paul cteri stics have been deter mined by [facility] [employer] funmil[employer]oe Grabiel vaughan . It has not been clear ed or appro gerardo by FDA. This assay has been valid ated pursu ant to the CLIA regul ation s and is used for clini dung purpo ses. Perfo rming Organ izati on Infor matio n: Site ID: [id number] Name: [facility] elliot vaughan , Addre ss: [id number] [place] [address] [facility] tor: Francesca saez MD,Ph D,JUAN Not Available [facility] (Lab) [address] [facility], [place], [address], 11/22/2022 18:18:52 11/13/19 23 11/12/2022 TESTO STERO NE, FREE( DIALY SIS) AND TOTAL (LC/M S/MS) testosterone , total 25 NG/dL 2-45 For addit ional michael rodriguez e refer to http: //brittney emery.que stdia gnost ics.c om/fa q/Tot alTes mata binghameL CMSMS (This link is being provi ded for rani henson/ educa canelo l purpo ses only. ) This test was devel oped and its blossom tical perfo rmanc e paul cteri stics have been deter mined by [employer]. It has not been clear ed or appro gerardo by the FDA. This assay has been valid ated pursu ant to the CLIA regul ation s and is used for clini dung purpo ses. Not Available [facility] (Lab) [address] [facility], [place], [address], 11/22/2022 18:18:53 11/13/1911/12/2022 TESTO STERO NE, FREE( DIALY SIS) AND TOTAL (LC/M S/MS) testosterone , free 2.3 pg/mL 0.1-6. 4 This test was devel oped and its blossom tical perfo rmanc e paul cteri stics have been deter mined by [employer]. It has not been clear ed or appro gerardo by the FDA. This assay has been valid ated pursu ant to the CLIA regul ation s and is used for clini dung purpo ses. Perfo rming Organ izati on Rani sventami n: Site ID: [id number] Name: [facility] [place] Addre ss: [id number] [place] [address] Direc tor: Huey justin M.D. Not Available [facility] (Lab) [address], [place], [address], 11/22/2022 18:18:53 11/13/19 23 11/12/2022 pregn gamaliel test, urine HCG negati ve Not Available [facility] [address], [place], [address], 11/12/2022 09:43:23 01/30/20 23 01/29/2023 urina lysis , dipst ick Leukocytes TRACE Not Available [facility] [address], [place], [address], 01/29/2023 10:20:07 01/30/20 23 01/29/2023 urina lysis , dipst ick Nitrite Negati ve Not Available [place] [address], [place], [address], 01/29/2023 10:20:07 01/30/20 23 01/29/2023 urina lysis , dipst ick Blood +++ Not Available [place] [address], [place], [address], 01/29/2023 10:20:07 07/02/20 23 07/02/2023 CT/GC AND TRICH OMONA S VAGIN LOLITA (RRNA ), SWAB chlamydia trachomatis, PCR Negati ve negati ve Not Available [facility] (Lab) [address], [place], [address], 07/04/2023 07:48:14 07/02/20 23 07/02/2023 CT/GC AND TRICH OMONA S VAGIN LOLITA (RRNA ), SWAB neisseria gonorrhoeae, PCR Negati ve negati ve Not Available [facility] (Lab) [address], [place], [address], 07/04/2023 07:48:14 07/02/20 23 07/02/2023 CT/GC AND TRICH OMONA S VAGIN LOLITA (RRNA ), SWAB trichomonas vaginalis ribosomal RNA (rrna) Negati ve negati ve Not Available [facility] (Lab) [address] [facility], [place], [address], 07/04/2023 07:48:14 07/02/20 23 07/02/2023 VAGIN ITIS/ VAGIN OSIS, DNA PROBE prudence sp. detection, direct probe Positi ve negati ve abnormal Not Available [facility] (Lab) [address] [facility], [place], [address], 07/04/2023 07:48:14 07/02/20 23 07/02/2023 VAGIN ITIS/ VAGIN OSIS, DNA PROBE gardnerella vag. detection, direct probe Negati ve negati ve Not Available [facility] (Lab) [address] [facility], [place], [address], 07/04/2023 07:48:14 07/02/20 23 07/02/2023 VAGIN ITIS/ VAGIN OSIS, DNA PROBE trichomonas vag. detection, direct probe Negati ve negati ve Not Available [facility] (Lab) [address] [facility], [place], [address], 07/04/2023 07:48:14 07/02/20 23 07/02/2023 CULTU RE: URINE result report SEE RESULT S BELOW Test: Cultu re: Urine Speci men Sourc e: Urine Voide d Speci men Type: Urine Speci men Date: 07/02 3:10 PM Resul t Date: 2022 6:45 AM Resul t Statu s: Final resul t Abnor mal: No Resul ting Lab: [facility] [address] [facility] [address] Tel: CULTU RE ----- ----- ----- --- No growt h in 1 day (dete ction level of 10,00 0 colon ies / ml.) Not Available [facility] (Lab) [address], [place], [address], 07/04/2023 07:48:15 07/02/20 23 07/02/2023 urina lysis , dipst ick Leukocytes + Not Available [facility] [address], [place], [address], 07/02/2023 11:37:50 07/02/20 23 07/02/2023 urina lysis , dipst ick Nitrite Negati ve Not Available [facility] [address], [place], [address], 07/02/2023 11:37:50 07/02/20 23 07/02/2023 urina lysis , dipst ick Urobilinogen Negati ve Not Available [facility] [address], [place], [address], 07/02/2023 11:37:50 07/02/20 23 07/02/2023 urina lysis , dipst ick Protein Trace Not Available [facility] [address], [place], [address], 07/02/2023 11:37:50 07/02/20 23 07/02/2023 urina lysis , dipst ick pH 7 Not Available [facility] [address], [place], [address], 07/02/2023 11:37:50 07/02/20 23 07/02/2023 urina lysis , dipst ick Blood trace Not Available [facility] [address], [place], [address], 07/02/2023 11:37:50 07/02/20 23 07/02/2023 urina lysis , dipst ick Specific [place] 1.005 [facility] Available [facility] [address], [place], [address], 07/02/2023 11:37:50 07/02/20 23 07/02/2023 urina lysis , dipst ick Ketone Negati ve Not Available [facility] [address], [place], [address], 07/02/2023 11:37:50 07/02/20 23 07/02/2023 urina lysis , dipst ick Bilirubin Negati ve Not Available [facility] [address], [place], [address], 07/02/2023 11:37:50 07/02/20 23 07/02/2023 urina lysis , dipst ick Glucose Negati ve Not Available [facility] [address], [place], [address], 07/02/2023 11:37:50 07/02/20 23 07/02/2023 urina lysis , dipst ick Appearance Clear Not Available [facility] [address], [place], [address], 07/02/2023 11:37:50 07/02/20 23 07/02/2023 urina lysis , dipst ick Color Light yellow Not Available [facility] [address], [place], [address], 07/02/2023 11:37:50 10/26/19 24 10/26/2023 IMAGE GUIDE D PAP AND HPV REGAR DLESS image guided Pap, HPV regardless of Pap result SEE RESULT S BELOW CASE REPOR T: Cytol ogy Gynec ologi dung Repor t Case: [id number] Autho rizin g Provi makenna: Nettie Muller NP Colle cted: 10/25 1133 Order ing Locat ion: [place] [facility] Recei gerardo: 10/26 0715 First Scree n: Garret Ruiz, CT Rescr een: Anabell Harris, CT Speci men: Helen jameson Pap - Image d, Cervi x STATE MENT OF ADEQU ACY: UNSAT ISFAC TORY SPECI MEN FINAL DIAGN OSIS: Unsat isfac tory for evalu ation . Inade quate squam ous epith elial compo nent for diagn osis. Elect marisol dutton porfirio d by Anabell Harris, CT on 2023 at 6:56 AM ----- ----- ----- ----- ----- ----- ----- ----- ----- ----- ----- ----- ----- ----- ----- ----- ----- ---- HPV RESUL TS: HPV mRNA E6/E7 : No HPV mRNA Detec phoebe NOTE: This high risk HPV mRNA assay detec ts fourt een high- risk HPV types (16, 18, 31, 33, 35, 39, 45, 51, 52, 56, 58, 59, 66, 68) witho ut diffe renti ation . COMME NT: This speci men was revie wed by a Cytot echno logis t and/o r Patho logis t (as indic ated in this repor t) after evalu ation using the Thinp rep Imagi ng Syste m. NOTE: A repro cessi ng proce dure was perfo rmed and the addit ional slide confi gilda the diagn osis of unsat kelli knowles for evalu ation . CLINI DUNG INFOR MATIO N: Menst rual Statu s: LMP (if appli cable ): Clini dung Histo ry/Pr eviou s Pap: Type of Neopl luis alfredo (if appli cable ): Signi ficelliot t Clini dung Findi ngs: Other Histo ry: Hormo arturo (if appli cable ): Not Available [facility] (Lab) [address] [facility], [place], [address], 10/30/2023 08:00:27 11/14/19 23 11/13/2022 US, pelvi s No observ ation record ed. [email or web address] [facility] [address], [place], [address], 11/13/2022 13:12:31 11/14/19 23 11/13/2022 US, trans vagin al No observ ation record ed. [email or web address] [facility] [address], [place], [address], 11/13/2022 13:12:21 11/14/19 23 11/13/2022 US, pelvi s No observ ation record ed. [email or web address] [address] [facility], [place], [address], 11/17/2022 10:57:13 11/17/19 23 11/15/2022 elect valerio grajeda am No observ ation record ed. [email or web address] [facility] (Neurology) [address], [place], [address], 11/21/2022 14:06:07 10/29/19 24 10/29/2023 imagi ng/comfort baroneos tic resul t No observ ation record ed. [facility] [address] [facility], [place], [address], 10/30/2023 17:25:49 Result Notes None recorded. Procedures Surgical History Date Name Laterality Status Provider Name and Address Organization Details Recorded Time 10/16/19 24 endoscopy completed Christie Conti [facility] 10/26/2023 11:23:30 01/22/20 23 HYSTEROSCOPY, WITH ENDOMETRIAL ABLATION (SURG) completed Carla Carrasco [facility] 01/22/2023 10:28:11 10/22/19 23 Date of Last Pap Smear completed Meka Ortiz [facility] 10/26/2023 09:43:39 Tubal Ligation completed Erna High [facility] 10/21/2022 14:19:37 Imaging Results Imaging Date Name Status LastModified by Organization Details LastModified Time 11/13/2022 US, pelvis completed [email or web address] [facility] [address], [place], [address], 11/13/2022 13:12:31 11/13/2022 [facility], [facility]inal [email or web address] [address], [place], [address], 11/13/2022 13:12:21 11/13/2022 US, pelvis completed negin Tobar [address], [place], [address], 11/17/2022 10:57:13 11/15/2022 electrocardiogram completed [email or web address] [facility] (Neurology) [address], [place], [address], 11/21/2022 14:06:07 10/29/2023 imaging/diagnostic result completed [facility] [address] [place], [address], 10/30/2023 17:25:49 Procedure Notes None recorded. Medical Equipment None Reported. Allergies Allergen ID Allergen Name Allergen Category Reaction Reaction Severity Criticality Documentation Date Start Date Code Code System Note Provider Name and Address Organization Details Recorded Time 39883 Product containin g penicilli n (product) medicatio n rash Not available low 07/02/2023 12553 8001 SNOMED Harika Ozan, [place] - [facility] 11:28:51 Medications Name Sig Start Date Stop Date Status Note LastModified by Organization Details LastModified Time cyclobenza lawrence 10 mg tablet TAKE 1 TABLET BY MOUTH TWICE DAILY NEEDED FOR MUSCLE SPASM active Not Available Not Available No t Available venlafaxin e ER 37.5 mg capsule,ex tended release 24 hr 10/21 completed Not Available Not Available Not Available prednisone 10 mg tablet 07/02 completed Not Available Not Available Not Available doxycyclin e hyclate 100 mg capsule 07/02 completed Not Available Not Available Not Available trazodone 50 mg tablet 07/01 completed Not Available Not Available Not Available azithromyc in 250 mg tablet TAKE 2 TABLETS BY MOUTH DAILY FOR 1 DAY THEN TAKE 1 TABLET BY MOUTH DAILY 11/27 completed Not Available Not Available Not Available fluconazol e 150 mg tablet TAKE 1 TABLET BY MOUTH NOW. REPEAT IN 72 HOURS 10/25 completed Not Available Not Available Not Available benzonatat e 200 mg capsule 07/02 completed Not Available Not Available Not Available metronidaz ole 0.75 % (37.5 mg/5 gram) vaginal gel 10/25 completed Not Available Not Available Not Available metronidaz ole 500 mg tablet TAKE 1 TABLET BY MOUTH EVERY 8 HOURS FOR 7 DAYS 07/02 completed Not Available Not Available Not Available ciprofloxa david 500 mg tablet TAKE 1 TABLET BY MOUTH EVERY 12 HOURS 07/02 completed Not Available Not Available Not Available omeprazole 40 mg capsule,de layed release active Not Available Not Available Not Available nystatin-t riamcinolo ne 100,000 unit/gram- 0.1 % topical ointment APPLY TOPICALL Y TO THE AFFECTED AREA TWICE DAILY FOR 7 DAYS 10/25 completed Not Available Not Available Not Available trazodone 100 mg tablet 07/02 completed Not Available Not Available Not Available meclizine 25 mg tablet TAKE 1 TABLET BY MOUTH TWICE DAILY FOR 10 DAYS NEEDED FOR DIZZINES S 07/02 completed Not Available Not Available Not Available trazodone 150 mg tablet active Not Available Not Available Not Available prednisone 50 mg tablet TAKE 1 TABLET BY MOUTH DAILY FOR 5 DAYS 10/25 completed Not Available Not Available Not Available levofloxac in 750 mg tablet TAKE 1 TABLET BY MOUTH DAILY 07/02 completed Not Available Not Available Not Available methylpred nisolone 4 mg tablets in a dose pack FOLLOW PACKAGE DIRECTIO NS 07/02 completed Not Available Not Available Not Available naproxen 500 mg tablet 11/12 completed Not Available Not Available Not Available bupropion HCl XL 300 mg 24 hr tablet, extended release 07/02 completed Not Available Not Available Not Available bupropion HCl XL 150 mg 24 hr tablet, extended release 07/02 completed Not Available Not Available Not Available omeprazole 10/25 completed Not Available Not Available Not Available Probiotic 10/25 completed Not Available Not Available Not Available Contrave 8 mg-90 mg tablet,ext ended release Take 1 tablet every day by oral route. 07/02 completed She will come by the office and pick a sample bottle when we have them in stock Not Available Not Available Not Available BinaxNOW COVID-19 Ag Self Test kit TEST DIRECTED TODAY 10/21 completed Not Available Not Available Not Available Paxlovid 300 mg (150 mg x 2)-100 mg tablets in a dose pack TAKE 2 NIRMATRE LVIR TABLETS AND 1 RITONAVI R TABLET TOGETHER BY MOUTH TWICE DAILY FOR 5 DAYS 07/02 completed Not Available Not Available Not Available Vitals Date Recorded Body height Body mass index (BMI) Body weight Systolic blood pressure Diastolic blood pressure Provider Name and Address Organization Details Last Updated DateTime 11/27/2022 165.1 cm 29.7 kg/m2 04317.16 g 116 mm[Hg] 72 mm[Hg] rEna High [facility] 3 16:47:00 Date Recorded Body height Body mass index (BMI) Body weight Systolic blood pressure Diastolic blood pressure Provider Name and Address Organization Details Last Updated DateTime 01/29/2023 165.1 cm 30.1 kg/m2 41475.22 g 111 mm[Hg] 69 mm[Hg] Elis Goncalves [facility] 3 09:32:24 Date Recorded Body height Body mass index (BMI) Body weight Systolic blood pressure Diastolic blood pressure Provider Name and Address Organization Details Last Updated DateTime 07/02/2023 165.1 cm 30.9 kg/m2 21762.74 g 130 mm[Hg] 81 mm[Hg] Harika Chatman [facility] 3 11:26:10 Date Recorded Body height Body mass index (BMI) Body weight Systolic blood pressure Diastolic blood pressure Provider Name and Address Organization Details Last Updated DateTime 10/26/2023 165.1 cm 30.4 kg/m2 78158.97 g 117 mm[Hg] 74 mm[Hg] Christie Conti [facility] 4 11:22:12 Social History Question Answer Notes LastModified by Organizat ion Details LastModified Time Tobacco Smoking Status Never Smoker Belgica Evans ligia, [facility] 07/02/2023 11:18:35 What Is Your Level Of Alcohol Consumption? Occasional Information not available 10/21/2022 How Many Years Have You Consumed Alcohol? 5 Information not available 10/21/2022 Are You Blind Or Do You Have Difficulty Seeing? No Information n ot available 10/21/2022 What Is Your Level Of Caffeine Consumption? Moderate Information not available 10/21/2022 How Much Tobacco Do You Chew? None Information not available 10/21/2022 In The 14 Days Before Symptom Onset, Have You Had Close Contact With A Laboratory-confirm ed COVID-19 While That Case Was Ill? No Information n ot available 10/21/2022 In The 14 Days Before Symptom Onset, Have You Had Close Contact With A Person Who Is Under Investigation For COVID-19 While That Person Was Ill? No Information not available 10/21/2022 Have You Been To An Area Known To Be High Risk For COVID-19? No Information not available 10/21/2022 Are You Deaf Or Do You Have Serious Difficulty Hearing? No Information not available 10/21/2022 What Type Of Diet Are You Following? SPECIFIC Information n ot available 10/21/2022 What Is The Highest Grade Or Level Of School You Have Completed Or The Highest Degree You Have Received? 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 No Information not available 10/21/2022 Do You Use Protection During Sex? No Information not available 10/21/2022 Do You Use Your Seat Belt Or Car Seat Routinely? Yes Information not available 10/21/2022 Do You Have Smoke And Carbon Monoxide Detectors In Your Home? Yes Information not available 10/21/2022 How Much Tobacco Do You Smoke? No Information not available 10/21/2022 Do You Feel Stressed (tense, Restless, Nervous, Or Anxious, Or Unable To Sleep At Night)? [id number] Information not available 10/21/2022 Do You Use Any Illicit Or Recreational Drugs? No Information not available 10/21/2022 Do You Use Sunscreen Routinely? Yes Information not available 10/21/2022 Have You Used IV Drugs? No Information not available 10/21/2022 Sex: Unknown Functional Status Question Answer Note LastModified by Organizat ion Details LastModified Time Do you have difficulty walking or climbing stairs? No [email or web address] Information not available 07/02/2023 Are you able to walk? YESWOREST Information not available 10/21/2022 Are you able to care for yourself? Yes [email or web address] Information not available 07/02/2023 Do you have difficulty dressing or bathing? No [email or web address] Information not available 07/02/2023 What is your exercise level? Moderate Information not available 10/21/2022 Mental Status None recorded. Family History Relationship Description Onset Age of this Age Resolved Age Notes LastModified by Organization Details LastModified Time Mother Anemia vschroedter Not availabl e 10/21/2022 14:21:48 Paternal Aunt Malignant tumor of breast great aunt negin Not available 10/26/2023 11:53:35 Paternal Uncle Malignant tumor of colon great uncle alysiay Not available 10/26/2023 11:53:43 Medical History Condition Response Allergies (Food, seasonal, environmental ) Y Acid Reflux (GERD) Y Anemia Y Asthma Y Gynecological History Statement/Question Response Abnormal Pap Y Flow Light Date of LMP 10/26/2023 On BCP's at Conception? N N Was last menstrual period normal N STIs/STDs Y HPV Vaccine Y Duration of Flow (days) 5 Current Control Method Tubal Ligat ion Age at First Child 17 Frequency of Cycle (Q days) 30 Sexually Active? Y Menses Monthly Y Age of first menstrual cycle 13 Date of Last Pap Smear 10/21/2022 Sexual Problems? N Desired Control Method Ablation LMP Approximate N Obstetrics History GPAL:G 2 P 0 0 0 2 Type Value Living 2 Total 2 Past Encounters Encounter ID Performer Location Encounter Start Date Encounter Closed Date Diagnosis/Indication Diagnosis SNOMED-CT Code Diagnosis ICD10 Code Diagnosis Note [id number] AGUSTINA Haynes [place] [address] [address] 10/21/2022 13:46:58 10/21/2022 14:43:24 Gynecologic examination 36060980 Z01.419 Take Calcium with Vitamin D 1200mg daily if not receiving in daily diet. It is strongly advised to have an annual flu shot and up can obtain at most pharmacies . If you have not had a TDap shot in the last 10 years you should obtain one as well. Discussed with patient & provided with informatio n regarding Gardisil vaccine to prevent the 4 strains for HPV that cause cervical cancer if under age 26. Encourage safe sexual practices, to use condoms and limit partners if not already in a monogamous relationsh ip. Do monthly self breast exams. Have mammogram yearly or every other year depending on family history. BRCA testing is now available for patients with strong genetic history of female cancer. If interested contact the office. Engage in daily exercise of low impact aerobic exercise 45-60 minutes 4-5 times weekly. Avoid tobacco and illicit drugs as well as using moderation with alcohol intake less than 1-2 8 oz beverages daily. This lifestyle behavior pattern will lead to less health conditions and longer life span. If BMI greater than 25 weight watchers or dietary consult advised. Patient received above instructio ns, and questions have been answered. If you have any questions please call or respond to this email. Patient was made aware of the patient portal and may obtain a paper copy of today's plan if desired. WWEBC - BTLHx of abnormal pap 10+ years agoLast pap 4-5 years agopap done todaySTI testing added to papBlood STI testing declinedUT D with PCPMammogr ams next yearDiscus sed exercise, healthy eating. She has upcoming appointmen t at [facility] weight management Venereal d isease screening 898399976 Z11.3 [id number] Nettie Muller DUNCAN [place] [address],[place] [address] 11/12/2022 09:06:54 11/12/2022 10:06:44 Abnormal uterine bleeding 1489482084 9100 N93.9 UPT (-)STI testing declinedla bs orderedTVU S orderedRTC for pelvic u/s and f/u appointmen t [id number] Chelsey Zelaya [place] [address],[place] [address] 11/13/2022 12:26:07 11/13/2022 13:33:11 Abnormal uterine bleeding 5166000335 9100 N93.9 [id number] Nettie Muller DUNCAN [place] [address],[place] [address] 11/14/2022 09:34:36 11/14/2022 11:40:35 Obesity 539505124 E66.9 Today we discussed a detailed history. We talked about her successes and struggles in the past to loose weight. We discussed nutrition, discussed adequate protein intake. Discussed Pond[employer] pal peter. She will schedule with the pricing coordinator. Encouraged limiting sugary beverages. Discussed exercise, she has been getting adequate exercise, incorporat ing strength and cardio exercise.Zacarias cameron briefly discussed obesity medication -fasting labs ordered (already had CBC and TSH done)-EKG ordered-Di corrina appointmen t scheduled- RTC for f/u to review labs/EKG - can discuss obesity medication s further at that visit Time spent in visit is a total of 50 mins with at least 50% of visit consisting of counseling and review of plan of care. 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 Does not want to try hormonal BC at this time.She is interested in an ablation, she will schedule MD consult to discuss this furtherblo od work not resulted yet - will update patient with results when availablem ay need EMB prior to ablation - can schedule this after consult with Dr. Juares if he recommends this prior to ablation Time spent in visit is a total of 18 mins with at least 50% of visit consisting of counseling and review of plan of care. [id number] Orion Juares MD [place] [address] [address] 11/24/2022 11:57:43 11/24/2022 13:18:52 Menorrhagia 842057960 N92.0 This patient is a 37-year-ol d female presents for heavy vaginal bleeding. She has longstandi ng very heavy bleeding. Her menses are regular. However, they require double protection . Patient has accidents, getting blood on her bedding and clothing. Is affected work. She changes a pad or tampon every hour. She leaks blood around the pad and tampon. This bleeding has a profound impact on her quality of life and her activities of daily living. discussed treatment of abnormal, bleeding, menorrhagi a. Discussed medical and surgical treatment options in detail. Spent 40 minutes with the patient face-to-fa ce. More than 50% was counseling . We talked in detail about endometria l ablation. She has likely to move forward with endometria l ablation. We essentiall y made the distal perform the procedure. She is going to call us and give us the final go ahead. she wants to do this at the hospital. [id number] AGUSTINA Haynes [place] [address],[place] [address] 11/27/2022 16:19:05 11/28/2022 16:13:40 Obesity 892702473 E66.9 Today we discussed a detailed history. We talked about her successes and struggles in the past to loose weight. We discussed nutrition, discussed adequate protein intake. Discussed [employer] pal peter. She is following with the pricing coordinator. Encouraged limiting sugary beverages. Discussed exercise, she has been getting adequate exercise, incorporat ing strength and cardio exercise.w e discussed obesity medication s in-depthdi scussed phentermin e/topirama te, contrave, injectable , etc. We discussed there risk, benefits, mechanisms of action, contraindi cations, side effects, and cost.she would like to start contrave. she is aware of the risk and benefits and would like to proceedshe will take 1 tablet daily x 1 week, 1 tablet twice daily x 1 week, 2 tablets in the AM and 1 tablet in the PM x 1 week, then 2 tablets in the AM and 2 tablets in the PM.She will f/u in 4 weeks Time spent in visit is a total of 40 mins with at least 50% of visit consisting of counseling and review of plan of care. [id number] Angelique Pedrito [place] [address],[place] [address] 01/22/2023 10:19:21 01/22/2023 10:20:37 [id number] Orion Juares MD [place] [address],[place] [address] 01/29/2023 09:24:30 01/29/2023 10:06:38 Urinary tract infectious disease [id number] N39.0 this patient is a 37-year-ol d female presents for follow-up on menorrhagi a. She underwent a procedure for ablation of the endometriu m. She is recovering normally. She has no complaints . She does have some foul-smell ing urine. We dipped her urine. She has white cells and blood in her urine. To treat. [id number] AGUSTINA Haynes [place] [address],[place] [address] 07/02/2023 11:17:39 07/02/2023 12:11:12 Urinary symptoms [id number] R39.9 Vaginitis 48680788 N76.0 suspect yeastvagin itis/STI panel senturine cx sentvulvar care guidelines discussed (avoid constant panty liner use if able, cotton underwear only, water/fing ers to cleanse the vulva, free and clear laundry products, avoid vaginal washes/soa ps/product s). Vulvar care guidelines handout givenveg based moisturize r routine discussedr x sent, r/b/a reviewedca n continue boric acid capsules after IC/2-3 times per week for prevention RTC if symptoms persist past treatment, WWE due 10/2023 Time spent in visit is a total of 35 mins with at least 50% of visit consisting of counseling and review of plan of care. Venereal d isease screening 706172464 Z11.3 Vulval irritation 412374 003 N90.89 [id number] Mariely Tacho [place] [address] [address] 10/26/2023 11:16:33 10/26/2023 12:02:02 Gynecologic examination 92285887 Z01.419 Z11.51 WWEBC - BTLpap updateddec lined STI screenrout ine labs UTD/PCP Suggested Calcium with Vitamin D daily. Patient advised to get an annual flu shot in the fall and she could obtain at [facility] or [facility] care clinic. Also to obtain TDap vaccinatio n if you have not had one in the last 10 years. Recommend yearly mammograms . Encouraged monthly self breast exams. Encourage safe sexual practices, to use condoms and limit partners if not already in a monogamous relationsh ip. Engage in regular exercise. Avoid tobacco and illicit drugs. This lifestyle behavior pattern will lead to less health conditions and longer life span. If BMI greater than 25dietary consult advised. All questions have been answered. Patient appears to understand informatio n, but if you have any questions please call or respond to this email. Breast lump 39945737 N63 .0 bilateral diagnostic mammogram with left breast u/s ordered Health Concerns Section Related Observation LastModified by Organization Detai ls LastModified Time None Recorded Concern Status LastModified by Organization Details LastModified Time None Recorded Advance Directives Directive None Recorded Payers Encounter Date Sequence Insurance Name Policy Number Policy Whitman Covered Member ID Whitman Member ID Guarantor Name 11/27/2022 1 [facility] [id number] Crystal A Alarcon [id number] Crystal Alarcon 01/21/2023 1 [facility] [id number] Crystal A Alarcon [id number] Crystal Alarcon 01/29/2023 1 [employer] [id number] Crystal A Alarcon [id number] Crystal Alarcon 07/02/2023 1 [employer] [id number] Crystal A Alarcon [id number] Crystal Alarcon 10/26/2023 1 [facility] [id number] Crystal A Alarcon [id number] Khadijah Alarcon Notes Date Note Type Note Provider Name and Address Organization Details Recorded Time 3 text/htm l 37yopresents for weight management follow-upshe has started making diet changes, following with the dieticianexraje would like to discuss options for obesity medication today AGUSTINA Haynes [address], [place], [address], [facility] 11/28/2022 09:11:48 3 text/htm l this patient is a 37-year-old female presents for follow-up on menorrhagia. She underwent a procedure for ablation of the endometrium. She is recovering normally. She has no complaints. She does have some foul-smelling urine. We dipped her urine. She has white cells and blood in her urine. To treat. Orion Juares MD [address], [place], [address], [facility] 01/29/2023 10:02:03 3 text/htm l 37yo [id number] for evaluation of vulvar irritation/itching/burning symptoms present for 1-2 weeksoften gets BV/yeast after IC or her period. Has used boric acid capsules in the pasttakes daily probioticshx of BTL/ablationneg d/c, odorsneg n/v/fneg flu-like symptomsneg pelvic painneg flank painsSA with steady partnerwears panty liner daily AGUSTINA Haynes [address], [place], [address], [facility] 07/02/2023 12:01:00 4 text/htm l Annual GYNReported bypatient.Menstrual cycle:Normal menses Urinary symptoms:No hematuria; No incontinence Vulva:No genital lesion Vagina:Normal vaginal discharge Breast:No breast lump; No nipple discharge;Breast pain; left breast lump/tenderness noticed a few weeks ago Current Contraception:Satisfied with current contraception; Tubal ligation Sexual complaints:No sexual complaints; No pain during intercourse; Normal libido Menopausal Symptoms:No menopausal symptoms; Normal vaginal lubrication Psychological symptoms:No depression; No anxiety; No PMDD Preventive measures:Encourage self breast examination; Encourage regular exercise; Encourage no tobacco use; Encourage regular mammograms starting age 38Notes:WWEh/o BTL, ablationlight monthly periods since ablationh/o abnormal pap 10+ yrs ago, normals sincelast pap 10/2022 - normal light spotting - monthlymammogram : yearlygreat uncle with colonUTD with PCP Mariely Titus [facility] 10/27/2023 10:12:28 OBGyn Episode Ob Episode Information Episode Created Date Number of Fetuses Patient Bloodtype Patient rh Status Prepregnancy Weight lbs Domestic Partner Domestic Partner Phone Father Name Division Field Inspector Status 10/22/19 1 CLOSED Fetus Data First Name Last Name Admitted to NICU Weight (g) Sex Living Outcome Pediatric Complications Fetus ID Race Codes Race Delivery Type 3175.14 4 F [id number] Repeat Wilbert Calculation Initial Wilbert Date Initial Exam [...] Post Complications Tubal Sterilization Discharge Date Comments 6 35 Discharge Information Feeding Method Contraceptive Method Maternal HG B and HCT Levels Ob Episode Information Episode Created Date Number of Fetuses Patient Bloodtype Patient rh Status Prepregnancy Weight lbs Domestic Partner Domestic Partner Phone Father Name Division Field Inspector Status 10/22/19 1 CLOSED Fetus Data First Name Last Name Admitted to NICU Weight (g) Sex Living Outcome Pediatric Complications Fetus ID Race Codes Race Delivery Type 3515.33 8 F [id number] Primary Wilbert Calculation Initial Wilbert Date Initial Exam [...] Complications Tubal Sterilization Discharge Date Comments 3 Discharge Information Feeding Method Contraceptive Method Maternal HG B and HCT Levels
--- OUTSIDE RECORDS SUMMARY | 2024-09-25 09:16 | XMS_ITS | Continuity of Care Document ---
Author Organization [facility] Address [address] [place] [address] Phone Care Team Providers Care Wire Galvanizer Name Role Phone Unavailable Unavailable Unavailable Procedures Procedure Date Periapical Radiographic, first Image Apr Limit oral eval problem focused 014 Resin three surfaces-anterior 4 Advance Directives Directive Yes / No Effective Date File Name No Information Encounters Encounter Description Practice Location Reason(s) For Visit Diagnoses Date Provider Providers Copied on Encounter [facility] , [address], [place], [place], [id number], [place] tel:[phone] [facility] 4 No Information Family History Family Member Type Diagnosis Age At Onset No Information Payers Payer name Insurance type Covered libertarian ID Authoriza tion(s) No Information Social History Type Description Quantity Date Captured [...]
--- OUTSIDE RECORDS SUMMARY | 2024-09-25 09:17 | XMS_ITS | Clinical Summary ---
Author Organization [facility] Address [facility] [place] [address] Care Team Providers Care Sloop Captain Name Role Phone Stan Aguirre DO Primary Care Provider + Allergies Active Allergy Reactions Criticality Noted Date Comments Codeine Nausea Only High 07/11/2021 Hydrocodone Nausea Only,Other (see comment) Low 04/2021 Penicillins Rash Medium 03/17/2019 Medications Pediatric Multivitamins-Iron (MULTIVITAMIN/IRON OR) daily. Active SUMAtriptan (IMITREX) 50 MG tabletIndications: Migraine without aura and with status migrainosus, not intractable Take 1 tablet (50 mg total) by mouth 2 (two) times daily as needed for Migraine. Max of 4 tablets (200 mg) in 24 hours. 30 tablet 2 Active omeprazole (PRILOSEC) 40 MG capsuleIndications :Gastroesophageal reflux disease, unspecified whether esophagitis present TAKE 1 CAPSULE(40 MG) BY MOUTH DAILY 90 capsule 1 4 Active predniSONE (DELTASONE) 20 MG tabletIndications: Low back pain Take 3 tablets for three days, then take 2 tablets for three days, then take 1 tablet for three days 18 tablet 4 Active cyclobenzaprine (FLEXERIL) 10 MG tabletIndications: Lumbar radiculopathy Take 1 tablet (10 mg total) by mouth 3 (three) times daily as needed for Muscle Spasms. 30 tablet 4 Active HYDROcodone-acetam inophen (NORCO) 5-325 MG tabletIndications: Acute Pain < 7 Day Supply Take 1 tablet by mouth every 8 (eight) hours as needed for Pain. Indications: Acute Pain < 7 Day Supply 21 tablet 4 Active traZODone (DESYREL) 100 MG tabletIndications: Primary insomnia,JOSIANE (generalized anxiety disorder) Take 2 tablets (200 mg total) by mouth nightly at bedtime. 180 tablet 1 4 Active albuterol sulfate HFA 108 (90 Base) MCG/ACT inhalerIndications :Mild intermittent asthma without complication (HHS/HCC) Inhale 2 puffs into the lungs every 4 (four) hours as needed for Wheezing. 18 g 1 4 Active Active Problems Problem Noted Date Diagnosed Date Globus sensation 09/14/2023 Anal fissure 12/25/2021 Asthma (HHS/HCC) 12/25/2021 Constipation 12/25/2021 Elevated blood-pressure read ing without diagnosis of hypertension 12/25/2021 Encounter for other specified surgical aftercare 12/25/2021 Headache 12/25/2021 Herpes simplex 09/04/2021 Chronic idiopathic constipation 08/06/2020 Hemorrhoids 08/06/2020 Gastroesophageal reflux disease without esophagi tis 07/04/2019 Eosinophilic esophagitis 04/22/2019 Vitamin D deficiency 04/22/2019 BMI 31.0-31.9,adult 04/22/2019 Dysphagia, unspecified type 03/20/2019 Left hip pain 03/20/2019 Cervical high risk HPV (human papillomavirus) te st positive 05/21/2016 Resolved Problems Problem Noted Date Diagnosed Date Resolved Date Acute vestibular neuronitis 03/24/2023 03/24/2023 Sinus bradycardia 01/23/2023 03/24/2023 Pneumonia due to 2019-nCoV 12/25/2021 0 02/05/2022 Encounters Date Type Department Care Team Description 09/22/2024 4:37 PM PRODUCTION SUPPORT CONSULTANT - 09/22/2024 7:38 PM PRODUCTION SUPPORT CONSULTANT Emergency [facility] [place] [address] Sahil Maria, Dizziness; Numbness Discharge Disposition: Home or Self Care (Routine Discharge) 09/22/2024 Travel 07/18/2024 Telephone [facility] Family & Internal Medicine [address] [phone] Stan Aguirre, Medication Request from Last 3 Months Immunizations Name Administration Dates Next Due COVID-19 Vaccine (Generic) 2020,09/13/2020 Flulaval Quad (Multi-Dose Vial) 05/05/2018 Fluzone 6 Months+ Quad (0.5 mL Prefilled Syringe) 05/07/2022,05/10/2020,05/04/2019 Hepatitis A (Generic) 07/05/2002,12/31/2001 Influenza (Generic) 10/01/2022,,05/03/2016,2014 Influenza Adult (Generic) 05/09/2020,09/2018,05/05/2018,2015 PFIZER COVID-19 (ORIGINAL FORMULATION, PURPLE CAP) mRNA, LNP-S, PF, 30 MCG/0.3 ML DOSE 09/13/2020 Pneumococcal (Pneumovax 23) 05/17/2020 Pneumococcal (Prevnar 20) 10/23/2022 Tdap (Adacel) 05/04/2019 Tdap (Generic) 05/04/2019 Family History Medical History Relation Comments Arthritis Maternal Grandmother Vision loss Maternal Grandmother Relation Status Comments Father Alive Maternal Grandmother Mother Social History Tobacco Use Types Packs/Day Years Used Date Smoking Tobacco: Never Passive Smoke Exposure: Never Smokeless Tobacco: Never Tobacco Cessation:Counseling Given: Not Answered Alcohol Use Standard Drinks/Week Comments Yes 0 (1 standard drink = 0.6 oz pur e alcohol) Occ. 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 file Not on file Not on file Last Filed Vital Signs Vital Sign Reading Time Taken Comments Blood Pressure 121/72 09/22/2024 7:32 PM PRODUCTION SUPPORT CONSULTANT Pulse 77 09/22/2024 7:32 PM PRODUCTION SUPPORT CONSULTANT Temperature 37.6 C (99.6 F) 09/22/2024 3:49 PM PRODUCTION SUPPORT CONSULTANT Respiratory Rate 17 09/22/2024 7:32 PM PRODUCTION SUPPORT CONSULTANT Oxygen Saturation 98% 09/22/2024 7:32 PM PRODUCTION SUPPORT CONSULTANT Inhaled Oxygen Concentration - - Weight 84.8 kg (187 lb) 09/22/2024 3:49 PM PRODUCTION SUPPORT CONSULTANT Height 165.1 cm (5' 5 ) 09/22/2024 3:49 PM PRODUCTION SUPPORT CONSULTANT Body Mass Index 31.12 09/22/2024 3:49 PM PRODUCTION SUPPORT CONSULTANT Plan of Treatment Upcoming Encounters Date Type Department Care Team (Late st Contact Info) Description 10/17/2024 3:20 PM CDT Office Visit [facility] Family & Internal Medicine [id number] [place] [address] Stan Aguirre, [address] [place] [address] [phone] Health Maintenance Due Date Last Done Comments Annual Physical 10/04/1986 Hepatitis B Vaccines (1 of 3 - 19+ 3-dose series) 10/04/2002 COVID-19 Vaccine ( season) 2024 08/01/2021, 2020, 2020, Additional history exists Influenza Adult (#1) 2024 10/01/2022, 05/07/2022, 05/09/2021, Additional history exists PHQ-2 (Physician [place]) 08/03/2024 04/08/2024 Mammogram Screening 10/28/2024 10/29/2023 Cervical Cancer Screening Pap Smear (Age 30 to 64) Every 3 Years 10/25/2026 10/26/2023, 07/02/2023, 10/21/2022, Additional history exists Cervical Cancer Screening Pap with HPV Testing (Age 30 to 64) Every 5 Years 07/02/2028 07/02/2023, 10/21/2022 Cervical Cancer Screening with HPV 07/02/2028 DTaP, Tdap and Td Vaccines (3 - Td or Tdap) 05/04/2029 05/04/2019, 05/04/2019 Hepatitis C Completed 05/07/2022 Pneumococcal Vaccine: Pediatrics (0 to 5 Years) and At-Risk Patients (6 to 64 Years) Completed 10/23/2022, 05/17/2020 HPV Vaccines Aged Out No longer eligi ble based on patient's age to complete this topic Meningococcal B Vaccine Aged Out No l onger eligible based on patient's age to complete this topic Meningococcal Vaccine Aged Out No makayla liset eligible based on patient's age to complete this topic RSV Immunizations Under 20 Months Aged Out No longer eligible based on patient's age to complete this topic Procedures Procedure Name Priority Date/Time Associated Diagnosis Comments ECG 12-LEAD STAT 09/22/2024 5:34 PM PRODUCTION SUPPORT CONSULTANT ELECTROCARDIOGRAM REPORT Routine 025 5:34 PM PRODUCTION SUPPORT CONSULTANT INFLUENZA A & B STAT 09/22/2024 5:05 PM PRODUCTION SUPPORT CONSULTANT URINALYSIS, AUTO, COMPLETE STAT 09/22/2024 5:05 PM PRODUCTION SUPPORT CONSULTANT CHORIONIC GONADOTROPIN HCG QL STAT 09/22/2024 4:59 PM PRODUCTION SUPPORT CONSULTANT TROPONIN, QUANT STAT 09/22/2024 4:59 PM PRODUCTION SUPPORT CONSULTANT TSH W/REFLEX STAT 09/22/2024 4:59 PM PRODUCTION SUPPORT CONSULTANT MAGNESIUM STAT 09/22/2024 4:59 PM PRODUCTION SUPPORT CONSULTANT COMPREHENSIVE METABOLIC PANEL STAT 09/22/2024 4:59 PM PRODUCTION SUPPORT CONSULTANT CBC W/DIFF AUTOMATED STAT 09/22/2024 4:59 PM PRODUCTION SUPPORT CONSULTANT XR CHEST PA OR AP 1V STAT 09/22/2024 4:[address] HEAD WO CON STAT 09/22/2024 4:10 PM PRODUCTION SUPPORT CONSULTANT MAMMOGRAM GENERIC (SCAN ORDER) 10/29/2023 HEPATITIS C ANTIBODY W/RFX TO HCV RNA Routine 05/07/2022 7:53 AM CDT Need for hepatitis C screening test Annual physical exam from Last 3 Months or Most Recently Relevant to Health Maintenance Results * ECG 12 lead (09/22/2024 5:34 PM PRODUCTION SUPPORT CONSULTANT) 09/22/2024 5:34 PM PRODUCTION SUPPORT CONSULTANT Narrative [facility] ([facility]) RAD - 09/23/2024 6:40 PM PRODUCTION SUPPORT CONSULTANT 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1985 Requested By: SALAS LINDSAY Order Number: [id number] Reading : Simone Lamar Measurements Intervals [place] Rate: 103 P: 71 MT: 133 QRS: 60 QRSD: 78 T: 16 QT: 328 QTc: 431 Interpretive Statements SINUS TACHYCARDIA POSSIBLE LEFT ATRIAL ENLARGEMENT [-0.1mV P-WAVE IN V1/V2] NONSPECIFIC T-WAVE ABNORMALITY ABNORMAL RHYTHM ECG No previous ECG available for comparison UCTION SUPPORT CONSULTANT us Salas CANCINO ECG ORDERABLES Final Resu lt [facility] ([facility] * EKG Reading (09/22/2024 5:34 PM PRODUCTION SUPPORT CONSULTANT) Narrative Sahil Maria DO - 09/22/2024 5:34 PM PRODUCTION SUPPORT CONSULTANT Sahil Maria DO 09/22/2024 9:01 PM EKG Reading Date/Time: 09/22/2024 5:34 PM Performed by: Sahil Maria DO Authorized by: Sahil Maria DO Interpreted by ED physician Rhythm: sinus tachycardia Rate: tachycardic BPM: 103 QRS axis: normal Conduction: conduction normal Q waves: V1 and V2 Clinical impression: abnormal ECG Sahil Maria DO [facility] Final Result * INFLUENZA A & B, RAPID (09/22/2024 5:05 PM PRODUCTION SUPPORT CONSULTANT) SPECIMEN TYPE NASAL 09/22/2024 5:10 PM PRODUCTION SUPPORT CONSULTANT [facility] INFLUENZA A NEGATIVE NEGATIVE 09/22/2024 5:29 PM PRODUCTION SUPPORT CONSULTANT [facility] INFLUENZA B NEGATIVE NEGATIVE 09/22/2024 5:29 PM PRODUCTION SUPPORT CONSULTANT [facility] Comment: Interpretation: Negative for Influenza A and B. A negative result does not exclude influenza virus infection. If influenza is circulating in your community, a diagnosis of influenza should be considered based on a patient's clinical presentation and empiric antiviral treatment should be considered, if indicated. If more conclusive testing is needed for hospitalized inpatients, follow-up confirmatory testing with RT-PCR requires a separate order. NASAL STRUCTURE / Unknown 09/22/2024 5:05 PM PRODUCTION SUPPORT CONSULTANT Salas CANCINO MICROBIOLOGY - GENERAL ORD ERABLES Final Result [facility] [address] [place] [address], * (ABNORMAL) URINALYSIS, AUTO, COMPLETE (09/22/2024 5:05 PM PRODUCTION SUPPORT CONSULTANT) SPECIMEN TYPE URINE CLEAN CATCH 09/22/2024 5:00 PM [facility] COLOR (U) COLORLESS 09/22/2024 5:14 PM [facility] TRANSPARENCY CLEAR 09/22/2024 5:14 PM [facility] SPECIFIC GRAVITY (U) 1.005 1.001 - 1.030 09/22/2024 5:14 PM [facility] U PH 5.5 5.0 - 9.0 09/22/2024 5:14 PM [facility] LEUKOCYTES (U) NEGATIVE NEGATIVE 09/22/2024 5:14 PM [facility] NITRITES NEGATIVE NEGATIVE 09/22/2024 5:14 PM [facility] PROTEIN RANDOM (U) NEGATIVE <30 MG/DL 09/22/2024 5:14 PM [facility] GLUCOSE (U) NORMAL NORMAL MG/DL 09/22/2024 5:14 PM [facility] KETONES MG/DL (U) 10(A) NEGATIVE MG/DL 09/22/2024 5:14 PM [facility] UROBILINOGEN NORMAL NORMAL MG/DL 09/22/2024 5:14 PM [facility] BILIRUBIN (U) NEGATIVE NEGATIVE MG/DL 09/22/2024 5:14 PM [facility] BLOOD (U) NEGATIVE NEGATIVE 09/22/2024 5:14 PM [facility] WBC/HPF <1 <6 /HPF 09/22/2024 5:14 PM [facility] RBC/HPF <1 <6 /HPF 09/22/2024 5:14 PM [facility] BACTERIA (U) RARE(A) NONE /HPF 09/22/2024 5:14 PM [facility] SQUAMOUS EPITHELIALS RARE /HPF 09/22/2024 5:14 PM PRODUCTION SUPPORT CONSULTANT [facility] URINE SPECIMEN OBTAINED BY CLEAN CATCH PROCEDURE / Unknown 09/22/2024 5:05 PM PRODUCTION SUPPORT CONSULTANT Salas Lindsay PA URINE ORDERABLES Final Res ult [facility] [address] [place] [address], [place] [phone] * TSH W/REFLEX (09/22/2024 4:59 PM PRODUCTION SUPPORT CONSULTANT) TSH 0.733 0.358 - 3.74 uIU/ML 09/22/2024 6:44 PM PRODUCTION SUPPORT CONSULTANT [facility] Comment: HIGH DOSES OF BIOTIN MAY INTERFERE WITH THIS TEST RESULT. CORRELATION TO CLINICAL HISTORY AND PRESENTATION RECOMMENDED. FREE T4 NOT INDICATED 09/22/2024 4:59 PM PRODUCTION SUPPORT CONSULTANT us Sahil Maria DO LABORATORY Final Res ult Performing Organization Address City[facility]/ZIP Co de Phone Number [facility] [address] [place] [address], [place] [phone] * (ABNORMAL) COMPREHENSIVE METABOLIC PANEL (09/22/2024 4:59 PM PRODUCTION SUPPORT CONSULTANT) GLUCOSE 89 70 - 99 MG/DL 09/22/2024 5:37 PM PRODUCTION SUPPORT CONSULTANT [facility] BUN 11 7 - 18 MG/DL 09/22/2024 5:37 PM PRODUCTION SUPPORT CONSULTANT [facility] CREATININE S/P/B 0.97 0.55 - 1.02 MG/DL 09/22/2024 5:37 PM PRODUCTION SUPPORT CONSULTANT [facility] SODIUM S/P/B 135(L) 136 - 145 MMOL/L 09/22/2024 5:37 PM [facility] POTASSIUM S/P/B 3.7 3.5 - 5.1 MMOL/L 09/22/2024 5:37 PM [facility] CHLORIDE S/P/B 106 97 - 115 MMOL/L 09/22/2024 5:37 PM [facility] CO2 26.2 21 - 32 MMOL/L 09/22/2024 5:37 PM [facility] CALCIUM S/P/B 9.1 8.5 - 10.1 MG/DL 09/22/2024 5:37 PM [facility] BILIRUBIN TOTAL S/P/B 0.4 0.2 - 1.2 MG/DL 09/22/2024 5:37 PM [facility] Comment: THIS ASSAY IS NOT RECOMMENDED FOR PATIENTS UNDERGOING TREATMENT WITH ELTROMBOPAG DUE TO THE POTENTIAL FOR FALSELY ELEVATED RESULTS. TOTAL PROTEIN S/P/B 7.8 6.4 - 8.2 G/DL 09/22/2024 5:37 PM [facility] ALBUMIN S/P/B 4.0 3.4 - 5.0 G/DL 09/22/2024 5:37 PM [facility] AST 45(H) 15 - 37 U/L 09/22/2024 5:37 PM [facility] ALT 74(H) 14 - 55 U/L 09/22/2024 5:37 PM [facility] ALKALINE PHOSPHATASE S/P/B 55 50 - 136 U/L 09/22/2024 5:37 PM [facility] ANION GAP 2.8 2 - 10 MMOL/L 09/22/2024 5:37 PM [facility] BUN CREATININE RATIO 11.4 6 - 26 09/22/2024 5:37 PM [facility] A/G RATIO 1.1 1.0 - 2.0 RATIO 09/22/2024 5:37 PM PRODUCTION SUPPORT CONSULTANT [facility] GFR ESTIMATE 76(L) >90 ML/MIN/1.7 3 M2 09/22/2024 5:37 PM PRODUCTION SUPPORT CONSULTANT [facility] Comment: NOTE: eGFR is not calculated for patients <18 years of age or gender unknown. This is an estimated GFR calculation using the new CKD EPI creatinine equation without race and so does not require a correction factor for race. This estimated GFR should not be used for calculating drug doses. 09/22/2024 4:59 PM PRODUCTION SUPPORT CONSULTANT Salas Lindsay PA LABORATORY Final Resu lt [facility] [address] [place] [address], * CHORIONIC GONADOTROPIN HCG QL (09/22/2024 4:59 PM PRODUCTION SUPPORT CONSULTANT) PREG SCREEN-SERUM NEGATIVE 09/22/2024 6:28 PM PRODUCTION SUPPORT CONSULTANT [facility] 09/22/2024 4:59 PM PRODUCTION SUPPORT CONSULTANT Sahil Maria DO LABORATORY Final Res ult [facility] [address] [place] [address], * (ABNORMAL) CBC W/DIFF AUTOMATED (09/22/2024 4:59 PM PRODUCTION SUPPORT CONSULTANT) WBC 6.41 4.5 - 11.0 x10'3/uL 09/22/2024 5:21 PM PRODUCTION SUPPORT CONSULTANT [facility] RBC 4.35 4.20 - 5.40 x10'6/uL 09/22/2024 5:21 PM PRODUCTION SUPPORT CONSULTANT [facility] HGB 13.5 12.0 - 16.0 G/DL 09/22/2024 5:21 PM [facility] HCT 40.7 38.0 - 48.0 % 09/22/2024 5:21 PM [facility] MCV 93.6 81.0 - 99.0 FL 09/22/2024 5:21 PM [facility] MCH 31.0 27.0 - 31.0 PG 09/22/2024 5:21 PM [facility] MCHC 33.2 32.0 - 36.0 G/DL 09/22/2024 5:21 PM [facility] RDW 12.1 11.5 - 14.5 % 09/22/2024 5:21 PM [facility] PLT 254 130 - 400 x10'3/uL 09/22/2024 5:21 PM [facility] MPV 9.6 9.3 - 12.2 FL 09/22/2024 5:21 PM [facility] DIFFERENTIAL TYPE MANUAL DIFFERENTIAL 09/22/2024 5:48 PM [facility] SEG NEUTROPHILS 85 % 5:48 PM [facility] LYMPHOCYTES 6 % 09/22/2024 5:48 PM [facility] MONOCYTES 7 % 09/22/2024 5:48 PM [facility] EOSINOPHILS 1 % 09/22/2024 5:48 PM [facility] BASOPHILS 1 % 09/22/2024 5:48 PM [facility] ABS. NEUTROPHILS 5.45 1.80 - 7.70 x10'3/uL 09/22/2024 5:48 PM [facility] ABS. LYMPHOCYTES 0.38(L) 1.00 - 4.80 x10'3/uL 09/22/2024 5:48 PM PRODUCTION SUPPORT CONSULTANT [facility] ABS. MONOCYTES 0.45 0.24 - 0.86 x10'3/uL 09/22/2024 5:48 PM PRODUCTION SUPPORT CONSULTANT [facility] ABS. EOSINOPHILS 0.06 0.04 - 0.36 x10'3/uL 09/22/2024 5:48 PM PRODUCTION SUPPORT CONSULTANT [facility] ABS. BASOPHILS 0.06 0.01 - 0.08 x10'3/uL 09/22/2024 5:48 PM PRODUCTION SUPPORT CONSULTANT [facility] RBC MORPHOLOGY RBC MORPHOLOGY APPEARS NORMAL. SLIDE REVIEWED. 09/22/2024 5:48 PM PRODUCTION SUPPORT CONSULTANT [facility] PLT EST. ADEQUATE 09/22/2024 5:48 PM PRODUCTION SUPPORT CONSULTANT [facility] 09/22/2024 4:59 PM PRODUCTION SUPPORT CONSULTANT Salas CANCINO LABORATORY Final Resu lt [facility] [address] [place] [id number], * TROPONIN, QUANT (09/22/2024 4:59 PM PRODUCTION SUPPORT CONSULTANT) TROPONIN I HIGH SENSITIVITY <3 <54 ng/L 09/22/2024 6:44 PM PRODUCTION SUPPORT CONSULTANT [facility] Comment: HIGH DOSES OF BIOTIN, TROPONIN-SPECIFIC AUTOANTIBODIES, AND ANTIBODY THERAPY CONTAINING HAMA MAY INTERFERE WITH THIS TEST RESULT. CORRELATION TO CLINICAL HISTORY AND PRESENTATION RECOMMENDED. 09/22/2024 4:59 PM PRODUCTION SUPPORT CONSULTANT Sahil Maria DO LABORATORY Final Res ult [facility] [address] [place] [id number], * MAGNESIUM (09/22/2024 4:59 PM PRODUCTION SUPPORT CONSULTANT) MAGNESIUM 1.9 1.8 - 2.4 MG/DL 09/22/2024 6:44 PM PRODUCTION SUPPORT CONSULTANT [facility] 09/22/2024 4:59 PM PRODUCTION SUPPORT CONSULTANT Sahil Maria DO LABORATORY Final Res ult [facility] [address] [place] [address], * XR CHEST PA OR AP 1V (09/22/2024 4:23 PM PRODUCTION SUPPORT CONSULTANT) Anatomical Region Laterality Modality Chest Radiographic Chetna ging 09/22/2024 4:24 PM PRODUCTION SUPPORT CONSULTANT Impressions 09/22/2024 4:30 PM PRODUCTION SUPPORT CONSULTANT Impression: No acute findings. Referred By: Interpreted By: Ray Forbes MD, 09/22/2024 4:24 PM Narrative 09/22/2024 4:30 PM PRODUCTION SUPPORT CONSULTANT [address] [address] Examination: Chest 1 view portable History: Cough, chills DATE/TIME: 09/22/2024 4:00 PM Comparison: March 21, 2020 Technique: AP upright portable view of the chest was obtained. Findings: Heart size, mediastinal contours and pulmonary vasculature are within normal limits. No pulmonary consolidation, pleural effusion or pneumothorax. No acute osseous abnormality. Procedure Note Ray Forbes MD - 09/22/[address] [address] Examination: Chest 1 view portable History: Cough, chills DATE/TIME: 09/22/2024 4:00 PM Comparison: March 21, 2020 Technique: AP upright portable view of the chest was obtained. Findings: Heart size, mediastinal contours and pulmonary vasculature arewithin normal limits. No pulmonary consolidation, pleural effusion orpneumothorax. No acute osseous abnormality. Impression: No acute findings. Referred By: Interpreted By: Ray Forbes MD, 09/22/2024 4:24 PM us Salas [facility]CINO GENERAL IMAGING Final Resu lt * CT HEAD WO CON (09/22/2024 4:10 PM PRODUCTION SUPPORT CONSULTANT) Anatomical Region Laterality Modality Head Computed Tomogra phy 09/22/2024 4:14 PM PRODUCTION SUPPORT CONSULTANT Impressions 09/22/2024 4:22 PM PRODUCTION SUPPORT CONSULTANT IMPRESSION: No definite CT evidence for acute intracranial abnormality. Please note that CT has limited sensitivity for the detection of acute ischemia. Referred By: Interpreted By: Ray Forbes MD, 09/22/2024 4:14 PM Narrative 09/22/2024 4:22 PM PRODUCTION SUPPORT CONSULTANT [address] [address] EXAMINATION: CT of the head CLINICAL HISTORY: Left-sided numbness COMPARISON: None TECHNIQUE: CT examination of the head without contrast was performed with axial images obtained. A radiation dose lowering technique was used for this procedure, which may include, but is not limited to, dose reduction technique, automated exposure control, the use of iterative reconstruction, ALARA (As Low As Reasonably Achievable) techniques, and Image Gently techniques. FINDINGS: There is no evidence of acute intracranial hemorrhage, abnormal extra-axial collections, intracranial mass effect, or midline shift. The ventricles and extra-axial/subarachnoid spaces are unremarkable. There is no definite CT evidence to suggest acute territorial infarction. The calvarium is unremarkable without evidence of acute fracture. The visualized mastoid air cells, paranasal sinuses, and orbits are grossly unremarkable. Procedure Note Ray Forbes MD - 09/22/[address] [address] EXAMINATION: CT of the head CLINICAL HISTORY: Left-sided numbness COMPARISON: None TECHNIQUE: CT examination of the head without contrast was performed withaxial images obtained. A radiation dose lowering technique was used forthis procedure, which may include, but is not limited to, dose reductiontechnique, automated exposure control, the use of iterativereconstruction, ALARA (As Low As Reasonably Achievable) techniques, andImage Gently techniques. FINDINGS: There is no evidence of acute intracranial hemorrhage, abnormalextra-axial collections, intracranial mass effect, or midline shift. Theventricles and extra-axial/subarachnoid spaces are unremarkable. There isno definite CT evidence to suggest acute territorial infarction. Thecalvarium is unremarkable without evidence of acute fracture. Thevisualized mastoid air cells, paranasal sinuses, and orbits are grosslyunremarkable. IMPRESSION: No definite CT evidence for acute intracranial abnormality. Please note that CT has limited sensitivity for the detection of acuteischemia. Referred By: Interpreted By: Ray Forbes MD, 09/22/2024 4:[address] Final Resu lt * MAMMOGRAM GENERIC (SCAN ORDER) (10/29/2023) Anatomical Region Laterality Modality Other 10/29/2023 [facility] Scanned SCANNING Final Resu lt * HEPATITIS C ANTIBODY W/RFX TO HCV RNA ([facility] ONLY) (05/07/2022 7:53 AM CDT) HEPATITIS C AB NON-REACTI VE NON-REACT DANIEL Estrada [facility] SIGNAL TO CUTOFF 0.01 <1.[address] [facility] Comment: HCV antibody was non-reactive. There is no laboratory evidence of HCV infection. In most cases, no further action is required. However, if recent HCV exposure is suspected, a test for HCV RNA (test code 47644) is suggested. For additional information please refer to http://education.AG&P/faq/AMK69y3 (This link is being provided for informational/ educational purposes only.) 05/07/2022 7:53 AM CDT 05/08/2022 7:40 AM CDT Stan Aguirre DO LABORATORY Final Re sult [facility] [address] [address] [facility] [place] [address] from Last 3 Months or Most Recently Relevant to Health Maintenance Insurance [facility] [place] [address] Care Teams Sloop Captain Relationship Specialty Start Date End Date Stan Aguirre DO [address] [place] [id number] PCP - General FAMILY PRACTICE 03/17/19
--- OUTSIDE RECORDS SUMMARY | 2024-09-25 09:17 | XMS_ITS | Continuity of Care Document ---
Author Organization [facility] Address [address] [facility] [place] [address] [place] [address] Phone Care Team Providers Care Deputy Prosecuting Attorney Name Role Phone Gwyn Yoon MD Unavailable Unavailable Allergies, Adverse Reactions, Alerts Substance Reaction Status Criticality codeine Active No Information Penicillins Active No Information Medications Medication Instructions Dosage Effective Dates (start - stop) Status Comments omeprazole 20 mg capsule,delayed release take 1 capsule by oral route every day before a meal 20 MG - Active Procedures Procedure Date PREV VISIT, EST, AGE 18-39 OFFICE/OUTPATIENT VISIT, EST PREV VISIT, EST, AGE 18-39 PREV VISIT, EST, AGE 18-39 OFFICE/OUTPATIENT VISIT, EST PREV VISIT, NEW, AGE 18-39 Advance Directives Directive Yes / No Effective Date File Name No Information Encounters Encounter Description Practice Location Reason(s) For Visit Diagnoses Date Provider Providers Copied on Encounter [facility], [address] [place], [place], [id number], tel:[phone] [facility] No Information 9 Car Pascal. [address], [address] [place], [address] , [place]. tel:[phone] Referring Provider: Gwyn Yoon, [address], [place], [place], [address]. tel:[phone] PREV VISIT, EST, AGE 18-39 [facility], [address], [place], [place], [address], tel:[phone] [facility] Medicine PHysical (chief complaint) Encntr for general adult medical exam w/o abnormal findings Nov-0 9 Car Pascal. [address], [place], [place], [address] , [place]. [phone] Referring Provider: Gabriel [address], [place], [place], [address]. tel:[phone] OFFICE/OUTPAT IENT VISIT, EST [facility], [address], [place], [place], [address], [place] [phone] [facility] back pain1 (chief complaint) calcificat ion1 (chief complaint) Lumbago with sciatica, right sideBody mass index (BMI) 30.0-30.9, adultSpontaneous ecchymosesOther cholelithiasis with obstruction December-0 2- 8 Car Kincaid [address], [place], [place], [address] , [place]. [phone] Referring Provider: Gabriel [address], [place], [place], [address]. tel:[phone] PREV VISIT, EST, AGE 18-39 [facility], [address], [place], [place], [address], [place] tel:[phone] [facility] Medicine Physical (chief complaint) Encntr for general adult medical exam w/o abnormal findingsLumbago with sciatica, right side Nov-2 6 8 Car Kincaid [address], [place], [place], [address] , [place]. [phone] Referring Provider: Gabriel R[address], [place], [place], [address]. tel:[phone] PREV VISIT, EST, AGE 18-39 [facility], [address], [place], [place], [address], [place] tel:[phone] [facility] Medicine PHysical (chief complaint) Encntr for general adult medical exam w/o abnormal findings Aug-3 0- 7 Car Kincaid [address], [place], [place], [address] , [place]. tel:[phone] Referring Provider: Gabriel [address], [place], [place], [address]. tel:[phone] OFFICE/OUTPAT IENT VISIT, EST [facility], [address], [place], [place], [address], [place] tel:[phone] [facility] anemia (chief complaint) vitamin D (chief complaint) chest pain (chief complaint) AnemiaUnspecified vitamin d deficiencyChest Pain, Unspecified 5 Car Pascal. [address], [address] , [place]. tel:[phone] Referring Provider: Gabriel [address], [place], [place], [address]. tel:[phone] PREV VISIT, NEW, AGE 18-39 [facility], [address], [place], [place], [address], [place] tel:[phone] [facility] Physical (chief complaint) Routine Medical ExamRoutine Medical Exam 5 Car Pascal. [address], [place], [place], [address] , [place]. tel:[phone] Family History Family Member Type Diagnosis Age At Onset Mother Problem (finding) Renal disease Father Problem (finding) Unknown Disease Payers Payer name Insurance type Covered democrat ID Authoriza tion(s) No Information Social History Type Description Quantity Date Captured Comments Alcohol Use Details Unknown Caffeine Use Details Unknown Tobacco Use Status No Information Smoking Status No Information Sex Female Chief Complaint And Reason For Visit No Information Plan Of Treatment Date Type Action Status Goal Special diet education compl eted Goal Special diet education compl eted Goal Special diet education compl eted Referral Ordered: UPPER GI W/ KUB ordered Referral Ordered: US EXAM, ABDOM, COMPLETE ordered Referral Ordered: MRI LUMBAR SPINE W/O DYE ordered Referral Ordered: LUMBAR XRAY AP AND LAT ONLY ordered Referral Ordered: Oz Corcoran (related to Encntr for general adult medical exam w/o abnormal findings) ordered Referral Referred To: Jewell Oz [place] [id number] [place] [address] [place], [id number] Ordered: Referrals: Jewell Oz. Evaluate and treat ordered Referral Ordered: CARDIOVASCULAR STRESS TEST ordered History Of Present Illness Encounter Date Complaint History Of Prese nt Illness PHysical Pt needs annual physical. Pt c/o feeling of food stuck around her throat area for 12 months, getting worse lately. PT has to drink water to flush her food down every times she swallow. Pt denies any nausea, vomiting, diarrhea Pt denies any abdominal pain pt denies and weight loss pt denies any sore throat pt does have GERD daily for a while. pt has been taking zantac and other OTC meds frequently. calcification1 Pt had benign adryan mbar xray and there is a ? calcification right side of abdomen. Pt denies any right upper quadrant pain. Pt denies any flank pain back pain1 Pt has acute low back pain with right sciatica. for almost 10 days pt has sharp pain radiating down to right leg and she states that she has 10/10 pain. Pt denies any loss of bladder control. Pt states that none of the med helped Pt states that she has pain all the time. Pt unable to sleep at night due to constant pain.. Pt denies any loss of bladder control. Pt states that her pain is worse than labor pain. pt also notices some bilateral inner thigh bruising. Pt notices numbness and tingling radiating down to right thigh. Pt feels very irritable due to pain. Pt unable to find any comfortable position. Physical Pt needs annual physical. Pt started to have rather severe low and right side back pain since two days ago. Pt denies any injury. Pt denies any urinary symptoms. Pt notices right sciatica with right leg numbness. Pt denies any loss of bladder or bowel control. Pt has sharp pain pt denies any fever, chill. Pt denies any injury. Pt went to chiropractor yesterday and had some tape placed on her low back and was told to go back today. Pt feels numbness right lateral thigh area. Pt denies any other complaints. Pt has 8/10 pain. Pt had to leave work today due to pain PHysical Pt c/o bilateral hand pain and ache for several weeks. Pt has to flick her hand to relieve her symptoms . Pt states that the hand symptoms are worse at night. Pt denies any neck pain or any radiculopathy. 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 Pt c/o right ear discomfort with mild muffled hearing on right side for two months. Pt denies any ear pain or any drainage. Pt denies any sinus symptoms. pt denies any other complaints Instructions Date Instruction Additional Infor svenion Special diet education Related t o Body mass index (BMI) 29.0-29.9, adult Increase physical activity Relat ed to Lumbago with sciatica, right side Special diet education Related t o Body mass index (BMI) 30.0-30.9, adult Special diet education Related t o Body mass index (BMI) 29.0-29.9, adult Prescribed Diet Educ ation/Lifestyle Education Regarding Diet Related to Dietary Surveillance and Counseling Prescribed Activity and Exercise Education Related to Dietary Surveillance and Counseling Assessments Type Assessment Date No Information
--- OUTSIDE RECORDS SUMMARY | 2024-09-25 09:20 | XMS_ITS | Continuity of Care Document ---
Author Organization [facility] Address [address] [place] [address] [place] [address] Phone Care Team Providers Care Larriman Helper Name Role Phone Patricio Tello MD Unavailable Unavailable Advance Directives Directive Yes / No Effective Date File Name No Information Encounters Encounter Description Practice Location Reason(s) For Visit Diagnoses Date Provider Providers Copied on Encounter [facility], [address] [place] [address] [address], [place], [place], [address], [place] tel:[phone] [facility] No Information 6 Elisha Curry. [address] [facility] [address], [place], [place], [address], [place]. tel:[phone] Family History Family Member Type Diagnosis Age At Onset No Information Payers Payer name Insurance type Covered libertarian ID Authoriza tion(s) Medicaid [facility] [id number] Social History Type Description Quantity Date Captured [...]
--- OUTSIDE RECORDS SUMMARY | 2024-09-25 09:20 | XMS_ITS | Continuity of Care Document ---
Author Organization [facility] Address [address] [facility] [address] [place] [address] Phone Care Team Providers Care Advertising Sales Associate Name Role Phone Felicita PT, DPT, Baltazar [...] Diagnoses Date Provider Providers Copied on Encounter [facility], [id number], tel:[phone] [place] No Information 2 Felicita Ledesma. . [facility], [id number], [place] tel:[phone] [place] No Information 2 Felicita Ledesma. . Referring Provider: Stan Aguirre , [facility] [place], [address]. tel:[phone] [facility] [address] [place] [address], [id number], tel:[phone] [place] No Information 2 Felicita Ledesma. . Referring Provider: Stan Aguirre , [address] [place] [address], [address]. tel:[phone], [id number], tel:[phone] [place] No Information 2 Felicita Ledesma. . Referring Provider: Stan Aguirre , [address] [place] [address], [address]. tel:[phone], [id number], tel:[phone] [place] No Information 2 Felicita Ledesma. . Referring Provider: Stan Aguirre , [address] [place] [address], [address]. tel:[phone], [id number], tel:[phone] [place] No Information 2 Felicita Ledesma. . Referring Provider: Stan Aguirre , [address] [place] [address], [address]. tel:[phone] Family History Family Member Type Diagnosis Age At Onset No Information Payers Payer name Insurance type Covered alliance party ID Tay antoinecinda(s) [facility] CI [id number] Social History Type Description Quantity Date Captured [...]
--- OUTSIDE RECORDS SUMMARY | 2024-09-25 09:20 | XMS_ITS | Continuity of Care Document ---
Author Organization [facility] Address [address] [facility] [place] [address] [place] [address] Phone Care Team Providers Care Tnt Powder Worker Name Role Phone Gwyn Yoon MD Unavailable [...] Diagnoses Date Provider Providers Copied on Encounter [facility], [address] [place], [place], [address], tel:[phone] [facility] No Information 9 [address]. [address], [address] [place], [address] , [place]. tel:[phone] Referring Provider: Gwyn Yoon, [address], [place], [place], [address]. tel:[phone] PREV VISIT, EST, AGE 18-39 [facility], [address], [place], [place], [address], tel:[phone] [facility] Medicine PHysical (chief complaint) Encntr for general adult medical exam w/o abnormal findings Nov-0 9 [address], [place], [place], [address] , [place]. [phone] Referring Provider: Gabriel [address], [place], [place], [address]. tel:[phone] OFFICE/OUTPAT IENT VISIT, EST [facility], [address], [place], [place], [address], [place] [phone] [facility] back pain1 (chief complaint) calcificat ion1 (chief complaint) Lumbago with sciatica, right sideBody mass index (BMI) 30.0-30.9, adultSpontaneous ecchymosesOther cholelithiasis with obstruction December-0 2- 8 Car Kincaid [address], [place], [place], [address] , [place]. [phone] Referring Provider: Gabriel [address], [place], [place], [address]. tel:[phone] PREV VISIT, EST, AGE 18-39 [facility], [address], [place], [place], [address], [place] tel:[phone] [facility] Medicine Physical (chief complaint) Encntr for general adult medical exam w/o abnormal findingsLumbago with sciatica, right side Nov-2 6 8 Car Kinc[address], [place], [place], [address] , [place]. [phone] Referring Provider: Gabriel [address], [place], [place], [address]. tel:[phone] PREV VISIT, EST, AGE 18-39 [facility], [address], [place], [place], [address], [place] tel:[phone] [facility] Medicine PHysical (chief complaint) Encntr for general adult medical exam w/o abnormal findings Aug-3 0- 7 Car Kincaid [address], [place], [place], [address] , [place]. tel:[phone] Referring Provider: Gabriel [address], [place], [place], [address]. tel:[phone] OFFICE/OUTPAT IENT VISIT, EST [facility], [address], [place], [place], [address], [place] tel:[phone] [facility] anemia (chief complaint) vitamin D (chief complaint) chest pain (chief complaint) AnemiaUnspecified vitamin d deficiencyChest Pain, Unspecified 5 [address]cal. [address], [address] , [place]. tel:[phone] Referring Provider: Gabriel [address], [place], [place], [address]. tel:[phone] PREV VISIT, NEW, AGE 18-39 [facility], [address], [place], [place], [address], [place] tel:[phone] [facility] Physical (chief complaint) Routine Medical ExamRoutine Medical Exam 5 Car Pascal. [address], [place], [place], [address] , [place]. tel:[phone] Family History Family Member Type Diagnosis Age At Onset Mother Problem (finding) Renal disease Father Problem (finding) Unknown Disease Payers Payer name Insurance type Covered republican ID Authoriza tion(s) No Information Social History [...] UPPER GI W/ KUB ordered Referral Ordered: MRI LUMBAR SPINE W/O DYE ordered Referral Ordered: US EXAM, ABDOM, COMPLETE ordered Referral Ordered: LUMBAR XRAY AP AND LAT ONLY ordered Referral Ordered: Oz Corcoran (related to Encntr for general adult medical exam w/o abnormal findings) ordered Referral Referred To: Oz Corcoran [place] [address] [place] [address] [place], [phone] Ordered: Referrals: Oz Corcoran. Evaluate and treat ordered Referral Ordered: CARDIOVASCULAR [...] taking zantac and other OTC meds frequently. back pain1 Pt has acute low back [...] Pt unable to find any comfortable position. calcification1 Pt had benign adryan mbar xray and there is a ? calcification right side of abdomen. Pt denies any right upper quadrant pain. Pt denies any flank pain Physical Pt needs annual physical. Pt started [...] o Body mass index (BMI) 29.0-29.9, adult Special diet education Related t o Body mass index (BMI) 30.0-30.9, adult Increase physical activity Relat ed to Lumbago with sciatica, right side Special diet education Related t o Body mass index (BMI) 29.0-29.9, adult Prescribed Activity and Exercise Education Related to Dietary Surveillance and Counseling Prescribed Diet Educ ation/Lifestyle Education Regarding Diet Related to Dietary Surveillance and Counseling Assessments Type Assessment Date No Information
--- OUTSIDE RECORDS SUMMARY | 2024-09-25 09:20 | XMS_ITS | Continuity of Care Document ---
Author Organization [facility] Address [address] [place] [address] Phone Care Team Providers Care Paint Mixer Name Role Phone Unavailable Unavailable Unavailable Procedures Procedure Date Periapical Radiographic, first Image Apr Limit oral eval problem focused 014 Resin three surfaces-anterior 4 Advance Directives Directive Yes / No Effective Date File Name No Information Encounters Encounter Description Practice Location Reason(s) For Visit Diagnoses Date Provider Providers Copied on Encounter [facility] , [address], [place], [place], [address], [place] tel:[phone] [facility] 4 No Information Family History Family Member Type Diagnosis Age At Onset No Information Payers Payer name Insurance type Covered alliance party ID Authoriza tion(s) No Information Social History [...]
[2024-09-25 09:26] VITALS: BP 124/75; PULSE 96; RESP 17; TEMP 36.5; O2SAT 99
--- NOTE | 2024-09-25 09:27 | ED.URI ---
HPI - URI/Sore Throat General Chief Complaint: Upper Respiratory Infection Stated Complaint: coughing and sob Time Seen by Provider: 09/25/24 09:30 Source: patient Mode of arrival: ambulatory Limitations: no limitations History of Present Illness HPI Narrative: 38-year-old female with a history of asthma presented for complaint of headache, body aches, sinus pressure/congestion, cough, fever/chills. Onset 3 days. Denies sob, wheezing, n/v/d. States the onset she felt dizzy with lungs which prompted to seek treatment in the emergency room, states her labs, head CT and chest x-ray were all normal at the time. She is concerned for pneumonia stating she has had it in the past. Has been using albuterol inhaler as needed. Related Data Home Medications ?Medication ?Instructions ?Recorded ?Confirmed ?Last Taken ?Type omeprazole 40 mg capsule,delayed 40 mg PO DAILY 12/11/22 07/09/23 Unknown History release albuterol 90 mcg/actuation aerosol 90 mcg inhalation PRN PRN 04/21/23 07/09/23 Unknown History inhaler Shortness Of Breath Or Wheezing Allergies Allergy/AdvReac Type Severity Reaction Status Date / Time hydrocodone AdvReac Mild Rash Verified 09/25/24 09:15 Penicillins AdvReac Mild Rash Verified 09/25/24 09:15 Review of Systems Review of Systems: per HPI All systems reviewed & are unremarkable except as noted in HPI and below PMFSH Past Medical History Medical History Anal fissure Asthma GERD (gastroesophageal reflux disease) History of EKG Pneumonia Surgical History Surgical History H/O rectal sphincterotomy Lateral internal sphincterotomy History of History of tubal ligation Family History Family History Other Heart disease Cerebrovascular accident Hypertension Social History Social History Smoking status: Never smoker Second hand tobacco smoke exposure: No Alcohol intake: current Alcohol use details: occassionally on the weekends Substance use: never Substance use type: does not use Lack of Transportation: No Lack of Food: Never True Current Housing: I Have Housing Concerned About Future Housing: No Difficulty Paying Gas/Electric Bills: No Difficulty Paying for Meds: No Currently Unemployed: No Education: Associate Degree Difficulty w/ Childcare or Family Care: No Living arrangements: with family Occupation/Education: occupation 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 Please see nursing chart for further information. There is no relevant family history pertinent to the presenting complaint Exam Narrative: GENERAL: mildly ill-appearing, in no acute distress. EYES: EOMI. No redness or drainage. Conjunctivae normal. ENT: Mucous membranes pink and moist. No rhinorrhea. TMs normal bilaterally. Throat normal. Uvula midline. NECK: Normal AROM. Supple. CHEST: No respiratory distress. Lungs clear to all hardy. frequent nnps cough HEART: Regular rate and rhythm. No murmur appreciated. SKIN: Warm, dry, no rash. Capillary refill normal. Normal skin turgor. NEURO: Alert and oriented x3. Gait steady. PSYCH: Normal affect. Course Course Emergency Course: Patient is aware of diagnosis, understands and agrees to treatment plan. Anticipatory guidance given. Patient agrees to follow-up as directed and is aware of reasons to seek care at the emergency department. Portions of this record may have been created with voice recognition software Level of Care: Express Care Visit MDM - URI/Sore Throat MDM Narrative Medical decision making narrative: POS flu. Discussed physical exam findings. Advised supportive measures and signs/symptoms to go to the ER. Pt is appropriate for outpt treatment and f/u. Differential Diagnosis Differential diagnosis: Likely upper respiratory infection, sinusitis, viral infection, bronchitis and influenza Discharge Plan Discharge Clinical Impression: Influenza Patient Disposition: Home, Self-Care Condition: Stable Instructions: Influenza (ED) Additional Instructions: Influenza positive You should avoid crowds until you are fever free for 24 hours without the use of fever reducing medications, or the symptoms are improved Rest. Drink plenty of fluids. Tylenol 1000mg every 8 hours as needed for pain/fever Flonase spray and Zyrtec (or Claritin/Cely) for sinus pressure/congestion over the counter Cough syrup may cause drowsiness; avoid driving or take it at night time. Mucinex (expectorant) Follow up with your primary care provider as needed Go to the ER for worsening symptoms or concerns Patient Language: Kinyarwanda Prescriptions: New codeine-guaifenesin [Guaifenesin AC] 10-100 mg/5 mL liquid 10 ml PO Q8H PRN (Reason: cough) Qty: 120 0RF methylprednisolone [Medrol (Lane)] 4 mg tablets,dose pack See Rx Instructions .ROUTE .COMPLEX Qty: 21 0RF Rx Instructions: orally per package directions No Action albuterol 90 mcg/actuation Aerosol 90 mcg INHALATION PRN PRN (Reason: Shortness Of Breath Or Wheezing) prednisone 50 mg tablet 50 mg PO DAILY 5 Days Qty: 5 0RF methylprednisolone [Medrol (Lane)] 4 mg tablets,dose pack See Rx Instructions .ROUTE .COMPLEX Qty: 21 0RF Rx Instructions: for 6 days hydrocodone-acetaminophen 5-325 mg tablet 1 tablet PO Q8H PRN (Reason: pain) 3 Days Qty: 10 0RF omeprazole 40 mg Capsule,Delayed Release(Dr/Ec) 40 mg PO DAILY Follow-up/Referrals: Carla,DO Stan [Primary Care Provider] - Stand Alone Forms: Work/School Release IP Time of Disposition: 09:41
[2024-09-25 09:36] LABS: EDCOVIDSCREEN Negative (Negative)
[2024-09-25 09:37] LABS: EDINFLUASCREEN Positive (Negative); EDINFLUBSCREEN Negative (Negative)
== END 2024-09-25 09:42 | disposition home or self-care (01) ==
PROVIDERS: Emergency Provider Nurse Practitioner Family; PCP Student in an Organized Health Care Education/Training Program
DX: J10.1 Influenza due to other identified influenza virus with other respiratory manifestations (principal); Z20.822 Contact with and (suspected) exposure to COVID-19; J45.909 Unspecified asthma, uncomplicated; K21.9 Gastro-esophageal reflux disease without esophagitis
CPT/HCPCS: 87426; 87804; 99213; G0463

== ENCOUNTER 2024-11-04 14:24 | Outpatient (CLI) | payer OTHER, SELFPAY ==
--- NOTE | ~2024-11-04 | MM_ITS ---
EXAMINATION: MM screening amauri BI w vanita HISTORY: Screening TECHNIQUE: Craniocaudal and mediolateral oblique 3-D tomosynthesis images were obtained and synthetic 2-D images were generated. CAD analysis was submitted and interpreted. COMPARISON: 10/29/2023 BREAST PARENCHYMAL COMPOSITION: Not dense: There are scattered areas of fibroglandular density. FINDINGS: There is no evidence of suspicious mass, calcification, or architectural distortion to sugg est malignancy in either breast. There has been no suspicious interval change. IMPRESSION: 1. No mammographic evidence of malignancy. 2. Recommend routine screening mammography in one year. BI-RADS Category 1: Negative Reviewed, dictated and finalized at location A.
--- OUTSIDE RECORDS SUMMARY | 2024-11-04 14:27 | XMS_ITS | Data Portability ---
Author Organization [facility] Address [address] [place] [address] Care Team Providers Care Wheel Setter Name Role Phone MALISSA RODRIGUEZ [place] Unavailable CHARLIE LOPEZ Primary Care Provider Assessment [...] DO Not Attach Compendium, Do Not Delete/merge, 13682 12:59:21 culture, vaginal/r ectal, streptoco ccus group B 2020 021 NATALIE [facility] (Centralized Electronic Ordering - All Locations), Patient Can Go To The Location Of Their Choice, [address] 12:00:55 bacterial vaginosis + vaginitis panel, vaginal 2020 021 [email or web address] [facility] (Centralized Electronic Ordering - All Locations), Patient Can Go To The Location Of Their Choice, [address] 15:05:21 HSV (1+2) DNA, qual, PCR, unspecifi ed specimen 2020 021 Desino [facility] (Centralized Electronic Ordering - All Locations), Patient Can Go To The Location Of Their Choice, [address] 1 15:05:21 unlisted lab - igp,aptim a HPV,age gdln 2018 019 [place] [facility], [address], [place], [address], 9 06:06:05 urinalysi s, dipstick 2018 019 [email or web address] 1 In-Office Order, Internal Use Only DO Not Attach Compendium DO Not Attach Compendium, Do Not Delete/merge, [id number] 9 16:57:47 bacterial vaginosis panel, vaginal 2018 019 [place] [facility] (Centralized Electronic Ordering - All Locations), Patient Can Go To The Location Of Their Choice, [address] 9 14:08:41 urinalysi s, dipstick 2018 019 lee In-Office Order, Internal Use Only DO Not Attach Compendium DO Not Attach Compendium, Do Not Delete/merge, [id number] 9 15:24:09 pap, IG + HPV, cervical - please use Z11.51 in addition to code above for HPV testing. 2017 018 [facility], [address], [place], [address], 8 14:14:40 urinalysi s, dipstick 2017 018 lee In-Office Order, Internal Use Only DO Not Attach Compendium DO Not Attach Compendium, Do Not Delete/merge, [id number] 8 12:21:17 test, urine 2017 018 lee In-Office Order, Internal Use Only DO Not Attach Compendium DO Not Attach Compendium, Do Not Delete/merge, [id number] 8 12:21:17 bacterial vaginosis + vaginitis panel, vaginal - Z11.3, Z20.0 2017 018 [facility], [address], [place], [address], 8 11:36:51 HSV (1+2) DNA, qual, PCR, unspecifi ed specimen - Z11.3, Z20.2 2017 [facility], [address], [address], [place], [address], 8 11:36:52 culture, vaginal/r ectal, streptoco ccus group B - Z11.3, Z20.2 2017 [facility], [address], [place], [address], 8 11:36:53 hepatitis panel (A+B+C), acute, serum 2017 [facility], [address], [address], [place], [address], 8 20:09:54 hepatitis B surface Ab, qualitati ve, serum 2017 [facility], [address], [address], [place], [address], 20:09:55 HIV 1+2 AB + HIV 1 p24 Ag, qualitati ve immunoass ay, serum 2017 [facility], [address] [address], [place], [address], 20:09:56 treponema pallidum screen, serum, reflex confirmat ion 2017 [facility] (Centralized Electronic Ordering - All Locations), Patient Can Go To The Location Of Their Choice, [address] 20:09:56 HSV 2 IgG Ab, QN, IA, serum 2017 NATALIE [facility] (Centralized Electronic Ordering - All Locations), Patient Can Go To The Location Of Their Choice, [address] 8 20:09:56 Referral counselin collin referral 2017 mildred Langford (), [address] [place] [address], [address], 9 10:03:12 Procedures None recorded. Surgeries None recorded. Imaging None recorded. Medication Orders multivita min tablet 2020 [facility] #62081, [address], [place], [place], [id number], 12:59:21 Calcium with Vitamin D 600 mg-10 mcg (400 unit) tablet 2020 [facility], [address], [place], [place], [id number], 12:59:21 Clindesse 2 % vaginal cream,ext ended release 2020 [facility] #51020, [address], [place], [place], [id number], 12:00:12 Gynazole- 1 2 % vaginal cream 2020 021 [facility], [address], [place], [place], [id number], 12:47:10 Slynd 4 mg (28) tablet 2019 020 [facility], [address], [place], [place], [id number], 04/05/202 1 11:19:29 fluconazo le 150 mg tablet 2018 019 jcortopassi 1 [facility] #77314, [address], [place], [place], [id number], 9 16:51:23 multivita min tablet 2018 [facility] #68059, [address], [place], [place], [id number], 1 11:22:35 Calcium with Vitamin D 600 mg-10 mcg (400 unit) tablet 2018 [facility] #88075, [address], [place], [place], [id number], 1 11:22:04 nitrofura ntoin monohydra te/macroc rystals 100 mg capsule 2018 019 [facility], [address], [place], [place], [id number], 0 17:09:22 acyclovir 800 mg tablet 2017 018 jcortopassi 1 [facility] #78540, [address], [place], [place], [id number], 9 16:52:29 azithromy david 250 mg tablet 2017 018 [facility] #45136, [address], [place], [place], [id number], 1 11:20:01 multivita min tablet 2017 018 [facility] #30166, [address], [place], [place], [id number], 1 11:22:35 Calcium with Vitamin D 600 mg-10 mcg (400 unit) tablet 2017 [facility] #40188, [address], [place], [place], [id number], 11:22:[address] Sol[address] granules in packet 2017 [facility] 1 [facility] #84019, [address], [place], [place], [id number], 9 16:52:04 sertralin e 100 mg tablet 2017 018 [facility] #90228, [address], [place], [place], [id number], 9 16:52:17 trazodone 50 mg tablet 2017 018 [facility] #73220, [address], [place], [place], [id number], 11:19:24 Patient TargetsNo targets recorded. Patient Instructions Encounter Date Encounter Id Patient Instructions Last Modified By Organization Details Last Modified Time 05/10/2018 [id number] bacterial vaginosis: care instructions lee Not available 05/10/2018 13:05:24 learning about mood disorders lee Not available 05/10/2018 13:05:24 05/12/2019 [id number] candidiasis: care instructions mwasserman Not available 05/12/2019 15:24:09 07/22/2019 [id number] Well Visit, Ages 18 to 65: Care Instructions cornelio Not available 07/22/2019 16:57:47 A healthy lifestyle: care instructions [email or web address] Not available 07/22/2019 16:55:54 11/05/2020 [id number] bacterial vaginosis: care instructions garyerman Not available 11/05/2020 12:00:04 vaginal yeast infection: care instructions veritoasserman Not available 11/05/2020 12:05:57 Reason for Referral Counseling Referral for Depr essive disorder Referring Physician: Malissa Rodriguez, MODELING AGENT, Encounter Date: 05/10/2018 Results Created Date Observation [...] 11/05/2020 urina lysis , dipst ick Specific Ashley 1.015 Not Available In-Off ice Order Internal Use Only DO Not Attach Compendium DO Not Attach Compendium, Do Not Delete/merge, [id number] 11/05/2020 11:36:29 11/06/19 21 11/05/2020 urina lysis , dipst ick Ketone Negati ve Not Available In-Office Order Internal Use Only DO Not Attach Compendium DO Not Attach Compendium, Do Not Delete/merge, [id number] 11/05/2020 11:36:29 11/06/19 21 11/05/2020 urina lysis , dipst ick Bilirubin Negati ve Not Available In-Office Order Internal Use Only DO Not Attach Compendium DO Not Attach Compendium, Do Not Delete/merge, [id number] 11/05/2020 11:36:29 11/06/19 21 11/05/2020 urina lysis , dipst ick Glucose Negati ve Not Available In-Office Order Internal Use Only DO Not Attach Compendium DO Not Attach Compendium, Do Not Delete/merge, [id number] 11/05/2020 11:36:29 05/12/20 19 05/12/2019 urina lysis , dipst ick Leukocytes Negati ve Not Available In-Office Order Internal Use Only DO Not Attach Compendium DO Not Attach Compendium, Do Not Delete/merge, [id number] 05/12/2019 15:01:39 05/12/20 19 05/12/2019 urina lysis , dipst ick Nitrite negati ve Not Available In-Office Order Internal Use Only DO Not Attach Compendium DO Not Attach Compendium, Do Not Delete/merge, [id number] 05/12/2019 15:01:39 05/12/20 19 05/12/2019 urina lysis , dipst ick Urobilinogen .2 Not Available In-Of fice Order Internal Use Only DO Not Attach Compendium DO Not Attach Compendium, Do Not Delete/merge, [id number] 05/12/2019 15:01:39 05/12/20 19 05/12/2019 urina lysis , dipst ick Protein Negati ve Not Available In-Office Order Internal Use Only DO Not Attach Compendium DO Not Attach Compendium, Do Not Delete/merge, [id number] 05/12/2019 15:01:39 05/12/20 19 05/12/2019 urina lysis , dipst ick pH 6.5 Not Available In-Office Order Internal Use Only DO Not Attach Compendium DO Not Attach Compendium, Do Not Delete/merge, [id number] 05/12/2019 15:01:39 05/12/20 19 05/12/2019 urina lysis , dipst ick Blood Non-He molyze d: Trace Not Available In-Office Order Internal Use Only DO Not Attach Compendium DO Not Attach Compendium, Do Not Delete/merge, [id number] 05/12/2019 15:01:39 05/12/20 19 05/12/2019 urina lysis , dipst ick Specific Ashley 1.010 Not Available In-Off ice Order Internal Use Only DO Not Attach Compendium DO Not Attach Compendium, Do Not Delete/merge, [id number] 05/12/2019 15:01:39 05/12/20 19 05/12/2019 urina lysis , dipst ick Ketone Negati ve Not Available In-Office Order Internal Use Only DO Not Attach Compendium DO Not Attach Compendium, Do Not Delete/merge, [id number] 05/12/2019 15:01:39 05/12/20 19 05/12/2019 urina lysis , dipst ick Bilirubin Negati ve Not Available In-Office Order Internal Use Only DO Not Attach Compendium DO Not Attach Compendium, Do Not Delete/merge, [id number] 05/12/2019 15:01:39 05/12/20 19 05/12/2019 urina lysis , dipst ick Glucose Negati ve Not Available In-Office Order Internal Use Only DO Not Attach Compendium DO Not Attach Compendium, Do Not Delete/merge, [id number] 05/12/2019 15:01:39 05/10/20 18 05/11/2018 pap, IG + HPV, cervi olya diagnosis: COMMEN T NEGAT DANIEL FOR INTRA EPITH ELIAL SP Bergeron AND BLAYNE SALCIDO . Not Available [facility] ([facility]) [address], [place], [address], 05/12/2018 14:14:40 05/10/20 18 05/11/2018 pap, IG + HPV, cervi olya specimen adequacy: COMMEN T Satis facto ry for evalu ation . No endoc ervic al compo nent is ident ified . Not Available [facility] ([facility]) [address], [place], [address], 05/12/2018 14:14:40 05/10/20 18 05/11/2018 pap, IG + HPV, cervi olya clinician provided ICD10: ANDIE Garcia Z01.4 11 Z11.5 1 Not Available [facility] ([facility]) [address], [place], [address], 05/12/2018 14:14:40 05/10/20 18 05/11/2018 pap, IG + HPV, cervi olya performed by: ANDIE lemus, Lea garcia (ASCP ) Not Available [facility] ([facility]) [address], [place], [address], 05/12/2018 14:14:40 05/10/20 18 05/11/2018 pap, IG + HPV, cervi olya . . Not Available [facility] ([facility]) [address] [place], [address], 05/12/2018 14:14:40 05/10/20 18 05/11/2018 pap, IG [...] ts do occur . Not Available [facility] ([facility]) [address], [place], [address], 05/12/2018 14:14:40 05/10/20 18 05/11/2018 pap, IG + HPV, cervi olya test methodology: ANDIE Garcia This liqui d based ThinP rep(R ) pap test was daysi harrison with the use of an image guide dougie bean Not Available [facility] ([facility]) [address] [place], [address], 05/12/2018 14:14:40 05/10/20 18 05/12/2018 pap, IG + HPV, cervi olya HPV aptima NEGATI VE negati ve This test detec ts fourt een high- risk HPV types (16/1 8/31/ 33/35 /39/4 5/ 51/52 /56/5 8/59/ 66/68 ) witho ut diffe renti ation . Not Available [facility] ([facility]) [address] [place], [address], 05/12/2018 14:14:40 05/10/20 18 05/15/2018 bacte rial vagin osis + vagin itis panel , vagin al trich vag by JOSE ANTONIO NEGATI VE negati ve Not Available [facility] ([facility]) [address] [place], [address], 05/18/2018 11:36:51 05/10/20 18 05/15/2018 bacte rial vagin osis + vagin itis panel , vagin al chlamydia trachomatis, JOSE ANTONIO NEGATI VE negati ve Not Available [facility] ([facility]) [address] [place], [address], 05/18/2018 11:36:51 05/10/20 18 05/15/2018 bacte rial vagin osis + vagin itis panel , vagin al neisseria gonorrhoeae, JOSE ANTONIO NEGATI VE negati ve Not Available [facility] ([facility]) [address] [place], [address], 05/18/2018 11:36:51 05/10/20 18 05/18/2018 bacte rial vagin osis + vagin itis panel , vagin al atopobium vaginae LOW - 0 score Not Available [facility] ([facility]) [address], [place], [address], 05/18/2018 11:36:51 05/10/2005/18/2018 bacte rial vagin osis + vagin itis panel , vagin al bvab 2 MODERA TE - 1 score Not Available [facility] ([facility]) [address], [place], [address], 05/18/2018 11:36:51 05/10/20 18 05/18/2018 bacte rial [...] is not neces dilan. Not Available [facility] ([facility]) [address], [place], [address], 05/18/2018 11:36:51 05/10/2005/18/2018 bacte rial vagin osis + vagin itis panel , vagin al prudence albicans, JOSE ANTONIO NEGATI VE negati ve Not Available [facility] ([facility]) [address], [place], [address], 05/18/2018 11:36:51 05/10/20 18 05/18/2018 bacte rial vagin osis + vagin itis panel , vagin al prudence glabrata, JOSE ANTONIO NEGATI VE negati ve This test was ryanel maddie and its perfo rmanc e paul cteri stics deter mined by [facility]. It has not been clear ed or appro gerardo by the Food and Drug Admin istra tion. The FDA has deter mined that such clear ance or appro annalise is not neclily dilan. Not Available [facility] ([facility]) [address], [place], [address], 05/18/2018 11:36:51 05/10/20 18 05/15/2018 HSV (1+2) DNA, qual, PCR, unspe cifie d speci men hsv 1 JOSE ANTONIO NEGATI VE negati ve Not Available [facility] ([facility]) [address] [place], [address], 05/18/2018 11:36:52 05/10/20 18 05/15/2018 HSV (1+2) DNA, qual, PCR, unspe cifie d speci men hsv 2 JOSE ANTONIO NEGATI VE negati ve Not Available [facility] ([facility]) [address], [place], [address], 05/18/2018 11:36:52 05/10/20 18 05/12/2018 cultu re, [...] n is noted . Not Available [facility] ([facility]) [address], [place], [address], 05/18/2018 11:36:53 05/10/20 18 05/10/2018 urina lysis , dipst ick Leukocytes Modera te Not Available In-Office Order Internal Use Only DO Not Attach Compendium DO Not Attach Compendium, Do Not Delete/merge, [id number] 05/10/2018 12:05:38 05/10/20 18 05/10/2018 urina lysis , dipst ick Nitrite negati ve Not Available In-Office Order Internal Use Only DO Not Attach Compendium DO Not Attach Compendium, Do Not Delete/merge, [id number] 05/10/2018 12:05:38 05/10/20 18 05/10/2018 urina lysis , dipst ick Urobilinogen 2 Not Available In-Of fice Order Internal Use Only DO Not Attach Compendium DO Not Attach Compendium, Do Not Delete/merge, [id number] 05/10/2018 12:05:38 05/10/20 18 05/10/2018 urina lysis , dipst ick Protein Negati ve Not Available In-Office Order Internal Use Only DO Not Attach Compendium DO Not Attach Compendium, Do Not Delete/merge, [id number] 05/10/2018 12:05:38 05/10/20 18 05/10/2018 urina lysis , dipst ick pH 6.5 Not Available In-Office Order Internal Use Only DO Not Attach Compendium DO Not Attach Compendium, Do Not Delete/merge, [id number] 05/10/2018 12:05:38 05/10/20 18 05/10/2018 urina lysis , dipst ick Blood Non-He molyze d: Trace Not Available In-Office Order Internal Use Only DO Not Attach Compendium DO Not Attach Compendium, Do Not Delete/merge, [id number] 05/10/2018 12:05:38 05/10/20 18 05/10/2018 urina lysis , dipst ick Specific Ashley 1.010 Not Available In-Off ice Order Internal Use Only DO Not Attach Compendium DO Not Attach Compendium, Do Not Delete/merge, [id number] 05/10/2018 12:05:38 05/10/20 18 05/10/2018 urina lysis , dipst ick Ketone Negati ve Not Available In-Office Order Internal Use Only DO Not Attach Compendium DO Not Attach Compendium, Do Not Delete/merge, [id number] 05/10/2018 12:05:38 05/10/20 18 05/10/2018 urina lysis , dipst ick Bilirubin Negati ve Not Available In-Office Order Internal Use Only DO Not Attach Compendium DO Not Attach Compendium, Do Not Delete/merge, [id number] 05/10/2018 12:05:38 05/10/20 18 05/10/2018 urina lysis , dipst ick Glucose Negati ve Not Available In-Office Order Internal Use Only DO Not Attach Compendium DO Not Attach Compendium, Do Not Delete/merge, [id number] 05/10/2018 12:05:38 05/10/20 18 05/10/2018 pregn gamaliel test, urine HCG negati ve Not Available In-Office Order Internal Use Only DO Not Attach Compendium DO Not Attach Compendium, Do Not Delete/merge, [id number] 05/10/2018 12:05:40 05/12/20 18 05/13/2018 hepat itis panel (A+B+ C), acute , serum hep A Ab, IgM NEGATI VE negati ve Not Available [facility] ([facility]) [address], [place], [address], 05/13/2018 20:09:54 05/12/20 18 05/13/2018 hepat itis panel (A+B+ C), acute , serum HBsAg screen NEGATI VE negati ve Not Available [facility] ([facility]) [address], [place], [address], 05/13/2018 20:09:54 05/12/20 18 05/13/2018 hepat itis panel (A+B+ C), acute , serum hep B core Ab, IgM NEGATI VE negati ve Not Available [facility] ([facility]) [address], [place], [address], 05/13/2018 20:09:54 05/12/20 18 05/13/2018 hepat itis panel (A+B+ C), acute , serum hep C virus Ab <0.1 s/co_ ratio 0.0-0. 9 Negat daniel: < 0.8 Indet ermin ate: 0.8 - 0.9 Posit daniel: > 0.9 The [facility] recom mends that a posit daniel HCV antib charlie resul t be follo wed up with a HCV Nucle ic Acid Ampli ficat ion test (5507 13). Not Available [facility] ([facility]) [address], [place], [address], 05/13/2018 20:09:54 05/12/20 18 05/13/2018 hepat itis B surfa ce Ab, quali tativ e, serum hep B surface Ab, qual REACTI VE Non React daniel: Incon siste nt with immun ity, less than 10 mIU/m L React daniel: Consi stent with immun ity, great er than 9.9 mIU/m L Not Available [facility] ([facility]) [address], [place], [address], 05/13/2018 20:09:55 05/12/20 18 05/13/2018 trepo nema palli dum scree n, serum , refle x confi rmati on T pallidum antibodies NEGATI VE negati ve Not Available [facility] ([facility]) [address], [place], [address], 05/13/2018 20:09:55 05/12/20 05/13/2018 HIV 1+2 AB + HIV 1 p24 Ag, quali tativ e immun oassa y, serum HIV screen 4TH generation wrfx NON REACTI VE non reacti ve Not Available [facility] ([facility]) [address] [place], [address], 05/13/2018 20:09:56 05/12/20 18 05/13/2018 HSV 2 [...] 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 Not Available [facility] ([facility]) [address], [place], [address], 05/13/2018 20:09:56 07/22/20 19 07/27/2019 bacte rial vagin osis panel , vagin al hsv 1 JOSE ANTONIO NEGATI VE negati ve Not Available [facility] ([facility]) [address] [place], [address], 07/28/2019 14:08:41 07/22/20 19 07/27/2019 bacte rial vagin osis panel , vagin al hsv 2 JOSE ANTONIO NEGATI VE negati ve Not Available [facility] ([facility]) [address] [place], [address], 07/28/2019 14:08:41 07/22/20 19 07/28/2019 bacte rial vagin osis panel , vagin al atopobium vaginae LOW - 0 score Not Available [facility] ([facility]) [address] [place], [address], 07/28/2019 14:08:41 07/22/20 19 07/28/2019 bacte rial vagin osis panel , vagin al bvab 2 LOW - 0 score Not Available [facility] ([facility]) [address] [place], [address], 07/28/2019 14:08:41 07/22/20 19 07/28/2019 bacte rial [...] e paul cteri stics deter mined by [facility]. It has not been clear ed or appro gerardo by the Food and Drug Admin istra tion. The FDA has deter mined that such clear ance or appro annalise is not neces dilan. Not Available [facility] ([facility]) [address], [place], [address], 07/28/2019 14:08:41 07/22/20 19 07/28/2019 bacte rial vagin osis panel , vagin al prudence albicans, JOSE ANTONIO NEGATI VE negati ve Not Available [facility] ([facility]) [address] [place], [address], 07/28/2019 14:08:41 07/22/20 19 07/28/2019 bacte rial vagin osis panel , vagin al prudence glabrata, JOSE ANTONIO NEGATI VE negati ve Not Available [facility] ([facility]) [address] [place], [address], 07/28/2019 14:08:41 12/20/20 19 07/28/2019 bacte rial vagin osis panel , vagin al trich vag by JOSE ANTONIO NEGATI VE negati ve Not Available [facility] ([facility]) [address] [place], [address], 07/28/2019 14:08:41 07/22/20 19 07/28/2019 bacte rial vagin osis panel , vagin al chlamydia trachomatis, JOSE ANTONIO NEGATI VE negati ve Not Available [facility] ([facility]) [address] [place], [address], 07/28/2019 14:08:41 07/22/20 19 07/28/2019 bacte rial vagin osis panel , vagin al neisseria gonorrhoeae, JOSE ANTONIO NEGATI VE negati ve Not Available [facility] ([facility]) [address] [place], [address], 07/28/2019 14:08:41 07/22/20 19 07/26/2019 pap, IG + refle x HPV age gdln acog testing 30-65 Not Available [facility] ([facility]) [address] [place], [address], 07/29/2019 06:06:05 07/22/20 19 07/28/2019 pap, IG + refle x HPV diagnosis: COMMEN T NEGAT DANIEL FOR INTRA EPITH ELIAL LESIO N OR BLAYNE SALCIDO . Not Available [facility] ([facility]) [address] [place], [address], 07/29/2019 06:06:05 07/22/20 19 07/28/2019 pap, IG + refle x HPV specimen adequacy: COMMEN T Satis facto ry for evalu ation . Endoc ervic al and/o r squam ous metap lasti c cells (endo cervi olya compo nent) are prese nt. Not Available [facility] ([facility]) [address] [place], [address], 07/29/2019 06:06:05 07/22/20 19 07/28/2019 pap, IG + refle x HPV clinician provided ICD10: ANDIE Garcia Z01.4 19 Z11.5 1 Z12.4 Not Available [facility] ([facility]) [address] [place], [address], 07/29/2019 06:06:05 07/22/20 19 07/28/2019 pap, IG + refle x HPV performed by: Lea Menchaca (ASCP ) Not Available [facility] [facility]) [address] [place], [address], 07/29/2019 06:06:05 07/22/20 19 07/28/2019 pap, IG + refle x HPV . . Not Available [facility] ([facility]) [address] [place], [address], 07/29/2019 06:06:05 07/22/20 19 07/28/2019 pap, IG [...] ts do occur . Not Available [facility] ([facility]) [address] [place], [address], 07/29/2019 06:06:05 07/22/20 19 07/28/2019 pap, IG + refle x HPV test methodology: ANDIE Garcia This liqui d based ThinP rep(R ) pap test was scree christy with the use of an image guide d syste m. Not Available [facility] ([facility]) [address] [place], [address], 07/29/2019 06:06:05 07/22/20 19 07/28/2019 pap, IG + refle x HPV HPV aptima NEGATI VE negati ve This nucle ic acid ampli ficat ion test detec ts fourt een high- risk HPV types (16,1 8,31, 33,35 ,39,4 5,51, 52,56 ,58,5 9,66, 68) witho ut diffe renti ation . Not Available [facility] ([facility]) [address] [facility], [place], [address], 07/29/2019 06:06:05 07/22/20 19 07/22/2019 urina lysis , dipst ick Leukocytes Trace Not Available In-Offi ce Order Internal Use Only DO Not Attach Compendium DO Not Attach Compendium, Do Not Delete/merge, [id number] 07/22/2019 16:24:51 07/22/20 19 07/22/2019 urina lysis , dipst ick Nitrite negati ve Not Available In-Office Order Internal Use Only DO Not Attach Compendium DO Not Attach Compendium, Do Not Delete/merge, [id number] 07/22/2019 16:24:51 07/22/20 19 07/22/2019 urina lysis , dipst ick Urobilinogen .2 Not Available In-Of fice Order Internal Use Only DO Not Attach Compendium DO Not Attach Compendium, Do Not Delete/merge, [id number] 07/22/2019 16:24:51 07/22/20 19 07/22/2019 urina lysis , dipst ick Protein Negati ve Not Available In-Office Order Internal Use Only DO Not Attach Compendium DO Not Attach Compendium, Do Not Delete/merge, [id number] 07/22/2019 16:24:51 07/22/20 19 07/22/2019 urina lysis , dipst ick pH 6.0 Not Available In-Office Order Internal Use Only DO Not Attach Compendium DO Not Attach Compendium, Do Not Delete/merge, [id number] 07/22/2019 16:24:51 07/22/20 19 07/22/2019 urina lysis , dipst ick Blood Non-He molyze d: Trace Not Available In-Office Order Internal Use Only DO Not Attach Compendium DO Not Attach Compendium, Do Not Delete/merge, [id number] 07/22/2019 16:24:51 07/22/20 19 07/22/2019 urina lysis , dipst ick Specific Ashley 1.015 Not Available In-Off ice Order Internal Use Only DO Not Attach Compendium DO Not Attach Compendium, Do Not Delete/merge, [id number] 07/22/2019 16:24:51 07/22/20 19 07/22/2019 urina lysis , dipst ick Ketone Negati ve Not Available In-Office Order Internal Use Only DO Not Attach Compendium DO Not Attach Compendium, Do Not Delete/merge, [id number] 07/22/2019 16:24:51 07/22/20 19 07/22/2019 urina lysis , dipst ick Bilirubin Negati ve Not Available In-Office Order Internal Use Only DO Not Attach Compendium DO Not Attach Compendium, Do Not Delete/merge, [id number] 07/22/2019 16:24:51 07/22/20 19 07/22/2019 urina lysis , dipst ick Glucose Negati ve Not Available In-Office Order Internal Use Only DO Not Attach Compendium DO Not Attach Compendium, Do Not Delete/merge, [id number] 07/22/2019 16:24:51 08/18/19 20 08/18/2019 US, pelvi s No observ ation record ed. [facility] [address] [facility], [place], [address], 09/23/2019 17:20:40 Result Notes None recorded. 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 Active 2015 AJ Farah, [place] - [facility] 8 11:24:47 Hemorrhoids 72479552 Active 2020 Malissa strong, [place] - [facility] 1 14:58:52 Chronic idiopathic constipatio n 73779403 Active 2020 Malissa strong, [place] - [facility] 1 14:58:54 Acute urinary tract infection 421770379 Completed 07/22/2019 BARAK RUBIN Attn: Melanie polanco,[address] [facility], [place], [address], [facility] 9 16:51:06 Herpes simplex 38123949 Active Malissa strong, [facility] 6 12:49:52 Candidiasis 61085946 Completed 07/22/2019 BARAK SANCHES Attn: Melanie g,[address] [facility], [place], [address], [facility] 9 16:52:59 Bacterial vaginosis 828597459 Active Malissa strong, [facility] 5 10:06:13 Problem Notes None recorded. Procedures Surgical History Date Name Laterality Status Provider Name and Address Organization Details Recorded Time 11/03/19 21 anal fissurectomy completed Hanh Hess [facility] 11/05/2020 11:16:27 07/03/20 19 Date of Last Pap Smear completed Hanh Hess [facility] 11/05/2020 11:11:48 10/20/19 08 Caesarean Section completed Luzmaria Noe MA [facility] 07/03/2015 15:51:57 08/03/19 08 ligation of bilateral fallopian tubes completed Hanh Hess [facility] 05/10/2018 12:10:38 10/22/19 03 Caesarean Section completed Luzmaria Noe MA [facility] 07/03/2015 15:52:12 Imaging Results Imaging Date Name Status LastModified by Organiz ation Details LastModified Time 08/18/2019 US, pelvis completed alvarez [facility] [address], [place], [address], 09/23/2019 17:20:40 Procedure Notes None recorded. Medical Equipment None Reported. Allergies Allergen ID Allergen Name Allergen Category Reaction Reaction Severity Criticality Documentation Date Start Date Code Code System Note Provider Name and Address Organization Details Recorded Time 322894 hydrocodo ne Not available abdominal pain Not available Not available 11/05/2020 5489 RxNorm Not Available Not Available Not Available 89275 Product containin g penicilli n (product) medicatio n hives severe Not available 08/09/2014 23957 8001 SNOMED Not Available Not Available Not Available 72578 codeine medicatio n nausea severe Not available [...] Updated DateTime 05/10/2018 165.1 cm 29 kg/m2 85336.07 g 120 mm[Hg] 80 mm[Hg] Hanh Hess [facility] 8 12:16:09 Date Recorded Body height Body mass index (BMI) Body weight Systolic blood pressure Diastolic blood pressure Provider Name and Address Organization Details Last Updated DateTime 05/12/2019 165.1 cm 30.3 kg/m2 60894.81 g 108 mm[Hg] 64 mm[Hg] Luzmaria Noe MA [facility] 9 15:04:32 Date Recorded Body height Body mass index (BMI) Body weight Heart rate Body temperature Oxygen saturation Oxygen saturation in Arterial blood by Pulse oximetry Systolic blood pressure Diastolic blood pressure Provider Name and Address Organization Details Last Updated DateTime 9 165.1 cm 30.5 kg/m2 76223.4 g 79 /min 98.6 [degF] 99 % 99 % 100 mm[Hg] 70 mm[Hg] Alexandra Snow MA [facility] 9 16:32:55 Date Recorded Body height Body mass index (BMI) Body weight Systolic blood pressure Diastolic blood pressure Provider Name and Address Organization Details Last Updated DateTime 08/30/2019 165.1 cm 30.6 kg/m2 09499 g 112 mm[Hg] 74 mm[Hg] Amber Dickson MA [facility] 0 17:08:48 Date Recorded Body height Body mass index (BMI) Body weight Systolic blood pressure Diastolic blood pressure Provider Name and Address Organization Details Last Updated DateTime 11/05/2020 165.1 cm 31.5 kg/m2 43459.96 g 114 mm[Hg] 68 mm[Hg] Hanh Hess MA [facility] 1 11:18:51 Social History Question Answer Notes LastModified by Organization Details LastModified Time Tobacco Smoking Status Never [place]oker [place] [facility] 08/09/2014 12:57:39 Do You Have An Advance [...] Used? Denies Pt States No Illegal Drugs Information not available 05/10/2018 Do You Or Have You Ever Used E-cigarettes Or Vape? Never Used Electronic Cigarettes Information not available 08/30/2019 Education 12 Information not available 07/03/2015 What Is The Highest Grade Or Level Of School You Have Completed Or The Highest Degree You Have Received? [id number] Information not available 11/05/2020 What Is Your [...] How Much Tobacco Do You Smoke? No [email or web address] Information not available 05/10/2018 General Stress Level Low Information not available 07/03/2015 Do You Feel Stressed (tense, Restless, Nervous, Or Anxious, Or Unable To Sleep At Night)? [id number] Information not available 11/05/2020 Do You Use Any Illicit Or Recreational Drugs? No Information not available 11/05/2020 Do You Use Sunscreen Routinely? Yes Information not available 07/03/2015 On What Date Was Tobacco Cessation Counseling Provided? 08/30/2019 Information not available 08/30/2019 How Many Years Have You Smoked Tobacco? 0 [email or web address] Information not available 05/10/2018 Do You Or [...] N Blood Diseases N Hyperthyroidism N Blood disorders N Blood Transfusion N MRSA N Emphysema N Depression N COPD N Blood Clots N Pneumonia N Premature N Peripheral Arterial Disease N Edema N TIA N Headaches/Migraines N Anxiety Disorder N Obesity N Polyps N Infertility N Acid Reflux (GERD) N Hematuria N [...] Disorder N Colon Polyps N Heart Attack (IA) N Diabetes N Cardiomyopathy N Blood Transfusions [...] virus, trivalent, PF 5 completed Not Available [facility] 08/20/2019 02:31:44 COVID-19, mRNA, LNP-S, PF, 30 mcg/0.3 mL dose 1 completed Henrietta strong, [place] - [facility] 02/28/2021 11:39:59 COVID-19, mRNA, LNP-S, PF, 30 mcg/0.3 mL dose 1 completed [place]etta strong, [place] [facility] 02/28/2021 11:42:50 Influenza, split virus, quadrivalent, preservative 6 completed Malissa strong [place] - [facility] 05/21/2016 13:59:52 Past Encounters Encounter ID Performer Location Encounter Start Date Encounter Closed Date Diagnosis/Indication Diagnosis SNOMED-CT Code Diagnosis ICD10 Code Diagnosis Note [id number] Primitivo ([employer]LING AGENT) [facility] [place] [address] 08/09/2014 12:06:28 08/09/2014 14:35:16 Family planning surveillance 732008913 Candidiasis 99061636 Administra tion of influenza vaccine 61410495 [id number] Malissa Langford ([employer]LING [employer]ENT) [address] [place] [address] 07/03/2015 14:56:32 07/03/2015 17:16:54 Bacterial vaginosis 834788359 N76.0 Candidiasis 60734727 B37 .9 Family elina nning surveillance 161053876 Z30.09 Female sterilization 608 16465 Z30.2 [id number] Malissa Langford ([employer] AGENT) [address] [place] [address] 05/21/2016 11:36:08 05/22/2016 10:03:12 Gynecologic examination 64289135 Z01.411 Bacterial vaginosis 4197 85382 N76.0 Genital he rpes simplex 54215032 A60.9 [id number] Malissa Langford ([employer]LING AGENT) [address] [place] [address] 05/10/2018 11:00:08 05/10/2018 13:33:38 Genital herpes simplex 83137553 A60.9 Gynecologi c examination 24957333 Z01.411 Exposure t o sexually transmissible disorder 249385411 Z20.2 Acute urin escobar tract infection 416597033 N39.0 Depressive disorder 3548 9007 F32.9 Bacterial vaginosis 4197 60506 N76.0 [id number] Malissa Langford [facility] ([employer]ING AGENT) [address] [place] [address] 05/12/2019 14:37:13 05/16/2019 14:15:11 Recurrent urinary tract infection 235195153 N39.0 Candidiasis 14917880 B37 .9 Family elina nning surveillance 296202540 Z30.09 [id number] BARAK ORO ([employer] AGENT) [address] [place] [address] 07/22/2019 16:13:46 07/25/2019 11:20:05 Gynecologic examination 29320975 Z01.419 Z11.51 Z12.4 Venereal d isease screening 717816913 Z11.3 Body mass index 30+ - obesity 761076155 Z68.30 [id number] Malissa KilgoreLuis Primitivo ([employer] AGENT) [address] [place] [address] 08/30/2019 16:51:13 08/31/2019 12:48:35 Abnormal progesterone 080384600 R94.7 R93.89 Family elina nning surveillance 310069580 Z30.09 [id number] Malissa KilgoreLuis Primitivo ([employer] AGENT) [address] [place] [address] 11/05/2020 10:46:01 11/05/2020 20:41:29 Gynecologic examination 35123403 Z01.419 Z11.51 Bacterial vaginosis 4197 16914 N76.0 Venereal d isease screening 476147715 Z11.3 Candidiasis of vagina 72 871019 B37.3 Health Concerns Section Related Observation LastModified by Organization Detai ls LastModified Time None Recorded Concern Status LastModified by Organization Details LastModified Time None Recorded Advance Directives Directive N: Payers Encounter Date Sequence Insurance Name Policy Number Policy Whitman Covered Member ID Whitman Member ID Guarantor Name 05/10/2018 1 [facility] [id number] Khadijah Alarcon [id number] Khadijah Alarcon 05/12/2019 1 [facility] [id number] Khadijah Alarcon [id number] Khadijah Alarcon 07/22/2019 1 [facility] [id number] Khadijah Alarcon [id number] Khadijah Alarcon 08/30/2019 1 [facility] [id number] Crystal Alarcon [id number] Khadijah Alarcon 11/05/2020 1 [facility] [id number] Crystal Alarcon [id number] Khadijah Alarcon Notes Date Note Type Note [...] WF, , presents to clinic for annual access control specialist appt. C/o irritative voiding symptoms and vaginal [...] WF, , presents to clinic for annual access control specialist appt. h/o recurrent uti , prudence and bv Malissa KilgoreLuisCEZAR daniel SICed 05/12/2019 15:29:59 07/22/2019 text/html Annual GYNReport ed [...] vaginal irritation. BARAK ORO Attn: Accounting[address] [place], [address], [facility] 07/22/2019 16:57:44 08/30/2019 text/html 33yo WF her e for lab results from transvaginal US for pain/cramping Malissa strong, [place] - [facility] 08/30/2019 17:53:46 11/05/2020 text/html Annual GYNReport ed [...] lateral sphincterotomy presents to clinic for annual access control specialist appt. h/o HPV, recurrent uti , prudence, bv, chronic idiopathic constipation, and external thrombosed hemorrhoids. Last PAP 07/2019 normal, HPV (-). Malissa strong, [place] - [facility] 11/05/2020 14:43:52 OBGyn Episode Ob Episode Information Episode Created Date Number of Fetuses Patient Bloodtype Patient rh Status Prepregnancy Weight lbs Domestic Partner Domestic Partner Phone Father Name Plant Etiologist Status 07/03/20 15 1 CLOSED Fetus Data First Name Last Name Admitted to NICU Weight (g) Sex Living Outcome Pediatric Complications Fetus ID Race Codes Race Delivery Type 2608.15 4 F Prematur e [id number] Wilbert Calculation Initial Wilbert Date Initial Exam [...] Domestic Partner Domestic Partner Phone Father Name Plant Etiologist Status 07/03/20 15 1 CLOSED Fetus Data First Name Last Name Admitted to NICU Weight (g) Sex Living Outcome Pediatric Complications Fetus ID Race Codes Race Delivery Type 3401.94 F Full Term [id number] Wilbert Calculation Initial Wilbert Date Initial Exam [...] Comments 3 [facility] inal 40 false 15 Makensie Discharge Information Feeding Method Contraceptive Method Maternal HG B and HCT Levels
--- OUTSIDE RECORDS SUMMARY | 2024-11-04 14:27 | XMS_ITS | Referral Summary ---
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
--- OUTSIDE RECORDS SUMMARY | 2024-11-04 14:27 | XMS_ITS | Data Portability ---
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 past to loose weight. We discussed nutrition, discussed adequate protein intake. Discussed [employer] pal peter. 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 Encouraged limiting sugary beverages. Discussed exercise, she [...] counseling and review of plan of care. [id number] Angelique Major [facility] [address],[place] [address] 01/22/2023 10:19:21 01/22/2023 10:20:37 [id number] Orion Juares MD [facility] [address],[place] [address] 01/29/2023 09:24:30 01/29/2023 10:06:38 Urinary tract infectious disease [id number] N39.0 this patient is a 37-year-ol d female presents for follow-up on menorrhagi a. She underwent a procedure for ablation of the endometriu m. She is recovering normally. She has no complaints . She does have some foul-smell ing urine. We dipped her urine. She has white cells and blood in her urine. To treat. [id number] AGUSTINA Haynes [facility] [address],[place] [address] 07/02/2023 11:17:39 07/02/2023 12:11:12 Urinary symptoms [id number] R39.9 Vaginitis 13626672 N76.0 suspect yeastvagin itis/STI panel senturine cx [...] plan of care. Venereal d isease screening 019658572 Z11.3 Vulval irritation 828567 003 N90.89 [id number] Mariely Titus [facility] [address],[place] [address] 10/26/2023 11:16:33 10/26/2023 12:02:02 Gynecologic examination 66245919 Z01.419 Z11.51 WWEBC - BTLpap updateddec lined STI screenrout ine labs UTD/PCP Suggested Calcium with Vitamin D daily. Patient advised to get an annual flu shot in the fall and she could obtain at [facility] or [facility] take care clinic. Also to obtain TDap vaccinatio [...] or respond to this email. Breast lump [id number] N63 .0 bilateral diagnostic mammogram with left breast u/s ordered [id number] AGUSTINA Haynes [facility] [address],[place] [address] 11/01/2024 16:46:14 11/02/2024 11:23:53 Gynecologic examination 51908371 Z01.419 Z11.51 WWEBC - BTLPap - done todaySTI screen - declinedMa mmogram - order givenColon cancer screening - n/aRoutine labs - PCPRTC in 1 yr or sooner if needed Suggested Calcium with Vitamin D daily. Patient advised to get an annual flu shot in the fall and she could obtain at local pharmacy. Also to obtain TDap vaccinatio n if [...] life span. If BMI greater than 25 dietary consult advised. All questions have been answered. Screening for malignant neoplasm of breast [id number] Z12.39 Urinary symptoms 4283145 08 R39.9 UA done, cx sentrx sent for macrobidpr ecautions discussed Health Concerns Section Related Observation LastModified by Organization Detai ls LastModified Time None Recorded Concern Status LastModified by Organization Details LastModified Time None Recorded Advance Directives Directive None Recorded Payers Encounter Date Sequence Insurance Name Policy Number Policy Whitman Covered Member ID Whitman Member ID Guarantor Name 01/21/2023 1 [employer] [id number] Crystal Real Alarcon [id number] Khadijah Alarcon 01/29/2023 1 [employer] [id number] Crystal A Alarcon [id number] Crystal Alarcon 07/02/2023 1 [employer] [id number] Khadijah Alarcon [id number] Khadijah Alarcon 10/26/2023 1 [employer] [id number] Khadijah Alarcon [id number] Khadijah Alarcon 11/01/2024 1 [employer] [id number] Khadijah Alarcon [id number] Khadijah Alarcon Notes Date Note Type Note Provider Name and Address Organization Details Recorded Time 01/29/2023 text/html this patient is a 37-year-old female presents for follow-up on menorrhagia. She underwent a procedure for ablation of the endometrium. She is recovering normally. She has no complaints. She does have some foul-smelling urine. We dipped her urine. She has white cells and blood in her urine. To treat. Orion Juares MD [address], [place], [address], [facility] 01/29/2023 10:02:03 07/02/2023 text/html 37yo [id number] ents for evaluation of vulvar irritation/itching/bu rningsymptoms present for 1-2 weeksoften gets BV/yeast after IC or her period. Has used boric acid capsules in the pasttakes daily probioticshx of BTL/ablationneg d/c, odorsneg n/v/fneg flu-like symptomsneg pelvic painneg flank painsSA with steady partnerwears panty liner daily AGUSTINA Haynes [address], [place], [address], [facility] 07/02/2023 12:01:00 10/26/2023 text/html Annual GYNReport ed bypatient.Menstrual cycle:Normal menses Urinary symptoms:No hematuria; No incontinence Vulva:No genital lesion Vagina:Normal vaginal discharge Breast:No breast lump; No nipple discharge;Breast pain; left breast lump/tenderness noticed a few weeks ago Current Contraception:Satisfi ed with current contraception; Tubal ligation Sexual complaints:No [...] yearlygreat uncle with colonUTD with PCP Mariely strong, [facility] 10/27/2023 10:12:28 11/01/2024 text/html Annual GYNReport ed bypatient.Menstrual cycle:Normal menses Urinary symptoms:No hematuria; No incontinence;Burning sensation during urination Vulva:No genital lesion Vagina:Normal vaginal discharge Breast:No breast pain; No breast lump; No nipple discharge Current Contraception:Satisfi ed with current contraception; Tubal ligation Sexual complaints:No sexual complaints; No pain during intercourse; Normal libido Menopausal Symptoms:No menopausal symptoms; Normal vaginal lubrication Psychological symptoms:No depression; No anxiety; No PMDD Preventive measures:Encourage self breast examination; Encourage regular exercise; Encourage no tobacco use; Encourage regular mammograms starting age 40Notes:39yo wweh/o BTL, ablationlast pap 10/2023 : unsatmammogram last 10/2023 dysuria x 1 week AGUSTINA Haynes [address], [place], [address], [place] [facility] 11/02/2024 11:20:43 OBGyn Episode Ob Episode Information Episode Created Date Number of Fetuses Patient Bloodtype Patient rh Status Prepregnancy Weight lbs Domestic Partner Domestic Partner Phone Father Name Neckties Painter Status 10/22/19 23 1 CLOSED Fetus Data First Name Last Name Admitted to NICU Weight (g) Sex Living Outcome Pediatric Complications Fetus ID Race Codes Race Delivery Type 3175.14 4 F [id number] Repeat Wilbert Calculation Initial Wilbert Date Initial [...] Domestic Partner Domestic Partner Phone Father Name Neckties Painter Status 10/22/19 23 1 CLOSED Fetus Data First Name Last Name Admitted to NICU Weight (g) Sex Living Outcome Pediatric Complications Fetus ID Race Codes Race Delivery Type 3515.33 8 F [id number] Primary Wilbert Calculation Initial Wilbert Date Initial [...]
--- OUTSIDE RECORDS SUMMARY | 2024-11-04 14:27 | XMS_ITS | Continuity of Care Document ---
Author Organization [facility] Address [address] [place] [address] [place] [address] Phone Care Team Providers Care Concrete Block Layer Name Role Phone Patricio Tello MD Unavailable Unavailable Advance Directives Directive Yes / No Effective Date File Name No Information Encounters Encounter Description Practice Location Reason(s) For Visit Diagnoses Date Provider Providers Copied on Encounter [facility], [address] [place] [address] [address], [place], [place], [address], [place] tel:[phone] SEC [facility] No Information 6 Elisha Curry. [address] [facility], [place], [place], [address], [place]. tel:[phone] Family History Family Member Type Diagnosis Age At Onset No Information Payers Payer name Insurance type Covered democrat ID Authoriza tion(s) Medicaid [facility] [id number] Social History Type Description Quantity Date Captured [...]
--- OUTSIDE RECORDS SUMMARY | 2024-11-04 14:27 | XMS_ITS | Continuity of Care Document ---
Author Organization [facility] Address [address] [facility] [place] [address] [place] [address] Phone Care Team Providers Care Chronometer Tester Name Role Phone Gwyn Yoon MD Unavailable [...] Diagnoses Date Provider Providers Copied on Encounter [facility], [address] [place], [place], [address], tel:[phone] [facility] No Information 9 Car [address]. [address], [place], [address] , [place]. tel:[phone] Referring Provider: Gwyn Yoon, [address], [place], [place], [address]. tel:[phone] PREV VISIT, EST, AGE 18-39 [facility], [address], [place], [place], [address], tel:[phone] [facility] PHysical (chief complaint) Encntr for general adult medical exam w/o abnormal findings Nov-0 [address], [place], [place], [address] , [place]. [phone] Referring Provider: [address], [place], [place], [address]. tel:[phone] OFFICE/OUTPAT IENT VISIT, EST [facility], [address], [place], [place], [address], [place] [phone] [facility] back pain1 (chief complaint) calcificat ion1 (chief complaint) Lumbago with sciatica, right sideBody mass index (BMI) 30.0-30.9, adultSpontaneous ecchymosesOther cholelithiasis with obstruction December-0 2- 8 Car Kincaid [address], [place], [place], [address] , [place]. [phone] Referring Provider: [address], [place], [place], [address]. tel:[phone] PREV VISIT, EST, AGE 18-39 [facility], [address], [place], [place], [address], [place] tel:[phone] [facility] Physical (chief complaint) Encntr for general adult medical exam w/o abnormal findingsLumbago with sciatica, right side Nov-2 6 8 Car [address], [place], [place], [address] , [place]. [phone] Referring Provider: [address], [place], [place], [address]. tel:[phone] PREV VISIT, EST, AGE 18-39 [facility], [address], [place], [place], [address], [place] tel:[phone] [facility] PHysical (chief complaint) Encntr for general adult medical exam w/o abnormal findings Aug-3 0- 7 Car Kinc[address], [place], [place], [address] , [place]. tel:[phone] Referring Provider: Gabriel [address], [place], [place], [address]. tel:[phone] OFFICE/OUTPAT IENT VISIT, EST [facility], [address], [place], [place], [address], [place] tel:[phone] [facility] anemia (chief complaint) vitamin D (chief complaint) chest pain (chief complaint) AnemiaUnspecified vitamin d deficiencyChest Pain, Unspecified 5 Car [address]. [address], [address] , [place]. tel:[phone] Referring Provider: Gabriel [address], [place], [place], [address]. tel:[phone] PREV VISIT, NEW, AGE 18-39 [facility], [address], [place], [place], [address], [place] tel:[phone] [facility] Physical (chief complaint) Routine Medical ExamRoutine Medical Exam 5 Car [address]. [address], [place], [place], [address] , [place]. tel:[phone] Family History Family Member Type Diagnosis Age At Onset Mother Problem (finding) Renal disease Father Problem (finding) Unknown Disease Payers Payer name Insurance type Covered green party ID Authoriza tion(s) No Information Social [...] findings) ordered Referral Referred To: Oz Corcoran [place] [address] [place] [address] [place], [id number] Ordered: Referrals: Oz Corcoran. Evaluate and treat [...]
--- OUTSIDE RECORDS SUMMARY | 2024-11-04 14:27 | XMS_ITS | Clinical Summary ---
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
--- OUTSIDE RECORDS SUMMARY | 2024-11-04 14:27 | XMS_ITS | Continuity of Care Document ---
Author Organization [facility] Address [address] [place] [address] Phone Care Team Providers Care Programmer Name Role Phone Unavailable Unavailable Unavailable Procedures Procedure Date Periapical Radiographic, first Image Apr Limit oral eval problem focused 014 Resin three surfaces-anterior 4 Advance Directives Directive Yes / No Effective Date File Name No Information Encounters Encounter Description Practice Location Reason(s) For Visit Diagnoses Date Provider Providers Copied on Encounter [facility] , [address], [place], [place], [address], [place] tel:[phone] [facility] [place] [facility] 4 No Information Family History Family Member Type Diagnosis Age At Onset No Information Payers Payer name Insurance type Covered constitution party ID Authoriza tion(s) No Information Social [...]
--- OUTSIDE RECORDS SUMMARY | 2024-11-04 14:29 | XMS_ITS | Clinical Summary ---
Author Organization [facility] Address [facility] [place] [address] Care Team Providers Care Argon Tester Name Role Phone Charlie Lopez DO Primary Care Provider + Allergies Active Allergy Reactions Criticality Noted Date Comments Codeine Nausea Only High 07/11/2021 Hydrocodone Nausea Only,Other (see comment) Low 04/2021 Penicillins Rash Medium 03/17/2019 Medications Pediatric Multivitamins-Iro n (MULTIVITAMIN/IRO N OR) daily. Active SUMAtriptan (IMITREX) 50 MG tabletIndications :Migraine without aura and with status migrainosus, not intractable Take 1 tablet (50 mg total) by mouth 2 (two) times daily as needed for Migraine. Max of 4 tablets (200 mg) in 24 hours. 30 tablet 2 Active omeprazole (PRILOSEC) 40 MG capsuleIndication s:Gastroesophagea l reflux disease, unspecified whether esophagitis present TAKE 1 CAPSULE(40 MG) BY MOUTH DAILY 90 capsule 1 4 Active cyclobenzaprine (FLEXERIL) 10 MG tabletIndications :Lumbar radiculopathy Take 1 tablet (10 mg total) by mouth 3 (three) times daily as needed for Muscle Spasms. 30 tablet 4 Active HYDROcodone-aceta minophen (NORCO) 5-325 MG tabletIndications :Acute Pain < 7 Day Supply Take 1 tablet by mouth every 8 (eight) hours as needed for Pain. Indications: Acute Pain < 7 Day Supply 21 tablet 4 Active traZODone (DESYREL) 100 MG tabletIndications :Primary insomnia,JOSIANE (generalized anxiety disorder) Take 2 tablets (200 mg total) by mouth nightly at bedtime. 180 tablet 1 4 Active albuterol sulfate HFA 108 (90 Base) MCG/ACT inhalerIndication s:Mild intermittent asthma without complication (HHS/HCC) Inhale 2 puffs into the lungs every 4 (four) hours as needed for Wheezing. 18 g 1 4 Active methylPREDNISolon e, CHRISTIAN, (MEDROL DOSEPAK) 4 MG tablet follow package directions 5 Active promethazine-dext romethorphan (PROMETHAZINE-DM) 6.25-15 mg/5mL syrup TAKE 5 ML BY MOUTH EVERY 8 HOURS NEEDED FOR COUGH 5 Active Albuterol-Budeson simon (AIRSUPRA) 90-80 MCG/ACT AerosolIndication s:Mild intermittent asthma without complication (HHS/HCC) Inhale 2 puffs into the lungs every 6 (six) hours as needed. 32.4 g 2 5 Active benzonatate (TESSALON) 100 MG capsuleIndication s:Influenza A Take 1-2 capsules (100-200 mg total) by mouth 3 (three) times daily as needed for Cough. 40 capsule 5 025 Active Problems Problem Noted Date Diagnosed Date [...] Encounters Date Type Department Care Team Description 09/29/2024 7:00 AM STAFF CONSULTANT Office Visit [facility] [address] [phone] Charlie Lopez DO ER F/U (Pt went to [facility] ER on 09/22/24, and visited [facility] on 09/25) 09/29/2024 Travel 09/25/2024 Scan [facility] Scanned, [facility] (SCAN) 09/25/2024 Scan [facility] Scanned, [facility] (SCAN) 09/25/2024 Telephone [facility] [address] [phone] Jessica Pierson MD Influenza 09/22/2024 4:37 PM STAFF CONSULTANT - 09/22/2024 7:38 PM STAFF CONSULTANT Emergency [facility] [place] [address] Sahil Maria, Dizziness; Numbness Discharge Disposition: Home or Self Care (Routine Discharge) 09/22/2024 Travel from Last 3 Months Immunizations Name Administration [...] Never Smokeless Tobacco: Never Tobacco Cessation:Counseling Given: No Alcohol Use Standard Drinks/Week Comments Yes 0 (1 standard drink = 0.6 oz pur e alcohol) Occ. 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 Not on file Not on file Last Filed Vital Signs Vital Sign Reading Time Taken Comments Blood Pressure 112/74 09/29/2024 7:13 AM STAFF CONSULTANT Pulse 84 09/29/2024 7:13 AM STAFF CONSULTANT Temperature 36.7 C (98 F) 09/29/2024 7:13 AM STAFF CONSULTANT Respiratory Rate 16 09/29/2024 7:13 AM STAFF CONSULTANT Oxygen Saturation 98% 09/29/2024 7:13 AM STAFF CONSULTANT Inhaled Oxygen Concentration - - Weight 86.1 kg (189 lb 14.4 oz) 09/29/2024 7:13 AM STAFF CONSULTANT Height 165.1 cm (5' 5 ) 09/29/2024 7:13 AM STAFF CONSULTANT Body Mass Index 31.6 09/29/2024 7:13 AM STAFF CONSULTANT Plan of Treatment Health Maintenance Due Date Last Done Comments Annual Physical 10/04/1986 Hepatitis B Vaccines (1 of 3 - 19+ 3-dose series) 10/04/2002 COVID-19 Vaccine ( season) 2024 08/01/2021, 2020, 2020, Additional history exists PHQ-2 (Physician [place]) 08/03/2024 04/08/2024 Mammogram Screening 10/28/2024 10/29/2023 Cervical [...] Procedure Name Priority Date/Time Associated Diagnosis Comments XR CHEST PA+LAT STAT 09/29/2024 8:27 AM STAFF CONSULTANT Influenza A OUTSIDE LAB COVID-19 (SCAN ORDER) Routine 09/25/2024 OUTSIDE LAB (SCAN ORDER) 09/25/2024 ECG 12-LEAD STAT 09/22/2024 5:34 PM STAFF CONSULTANT ELECTROCARDIOGRAM REPORT Routine 025 5:34 PM STAFF CONSULTANT INFLUENZA A & B STAT 09/22/2024 5:05 PM STAFF CONSULTANT URINALYSIS, AUTO, COMPLETE STAT 09/22/2024 5:05 PM STAFF CONSULTANT CHORIONIC GONADOTROPIN HCG QL STAT 09/22/2024 4:59 PM STAFF CONSULTANT TROPONIN, QUANT STAT 09/22/2024 4:59 PM STAFF CONSULTANT TSH W/REFLEX STAT 09/22/2024 4:59 PM STAFF CONSULTANT MAGNESIUM STAT 09/22/2024 4:59 PM STAFF CONSULTANT COMPREHENSIVE METABOLIC PANEL STAT 09/22/2024 4:59 PM STAFF CONSULTANT CBC W/DIFF AUTOMATED STAT 09/22/2024 4:59 PM STAFF CONSULTANT XR CHEST PA OR AP 1V STAT 09/22/2024 4:[address] HEAD WO CON STAT 09/22/2024 4:10 PM STAFF CONSULTANT MAMMOGRAM GENERIC (SCAN ORDER) 10/29/2023 HEPATITIS C ANTIBODY W/RFX TO HCV RNA Routine 05/07/2022 7:53 AM CDT Need for hepatitis C screening test Annual physical exam from Last 3 Months or Most Recently Relevant to Health Maintenance Results * XR CHEST PA+LAT (09/29/2024 8:27 AM STAFF CONSULTANT) Anatomical Region Laterality Modality Chest Radiographic Chetna ging 09/29/2024 8:29 AM STAFF CONSULTANT Impressions 09/29/2024 8:29 AM STAFF CONSULTANT IMPRESSION: Mild bronchial wall thickening which can be seen with viral illness or reactive airways disease. Ordered By: CHARLIE LOPEZ Interpreted By: Belia Jennings MD, 09/29/2024 8:29 AM Narrative 09/29/2024 8:29 AM STAFF CONSULTANT [facility] [place] [address] EXAMINATION: Chest x-ray 2 views. 09/29/2024 8:13 AM TECHNIQUE: PA and lateral upright images of the chest were obtained. HISTORY: Shortness of breath and cough. Influenza. COMPARISON: Chest x-ray 09/22/2024 FINDINGS: The cardiomediastinal silhouette is normal in size. The pulmonary vasculature is within normal limits. There is no consolidation, effusion, or pneumothorax. Mild bronchial wall thickening. Thoracic vertebral body heights are preserved. Procedure Note Belia Jennings MD - 09/29/2024 [facility] - [place] [id number] EXAMINATION: Chest x-ray 2 views. 09/29/2024 8:13 AM TECHNIQUE: PA and lateral upright images of the chest were obtained. HISTORY: Shortness of breath and cough. Influenza. COMPARISON: Chest x-ray 09/22/2024 FINDINGS: The cardiomediastinal silhouette is normal in size. The pulmonaryvasculature is within normal limits. There is no consolidation, effusion,or pneumothorax. Mild bronchial wall thickening. Thoracic vertebral bodyheights are preserved. IMPRESSION: Mild bronchial wall thickening which can be seen with viral illness orreactive airways disease. Ordered By: CHARLIE LOPEZ Interpreted By: Belia Jennings MD, 09/29/2024 8:29 AM Result Sojeans Charlie Lopez DO GENERAL IMAGING Final Re sult * OUTSIDE LAB COVID-19 (09/25/2024) CORONAVIRUS SARS COV 2 PCR (RESP) NOT DETECTED NOT DETECTED [facility] 09/25/2024 Result [facility] Scanned SCANNING Final Resu lt [facility] * OUTSIDE LAB (SCAN ORDER) (09/25/2024) 09/25/2024 Result [facility] Scanned SCANNING Final Resu lt * ECG 12 lead (09/22/2024 5:34 PM STAFF CONSULTANT) 09/22/2024 5:34 PM STAFF CONSULTANT Narrative [facility] - 09/23/2024 6:[address] [facility] [address] Test Date: 2024-09-22 Pat Name: HERSON REYES Department: 41 Room: EXAM23 Gender: Female Supervisor Lathing: : 1985 Requested By: SALAS LINDSAY Order Number: [id number] Reading : Simone Lamar Measurements Intervals [place] Rate: 103 P: 71 WA: 133 QRS: 60 QRSD: 78 T: 16 QT: 328 QTc: 431 Interpretive Statements SINUS TACHYCARDIA POSSIBLE LEFT ATRIAL ENLARGEMENT [-0.1mV P-WAVE IN V1/V2] NONSPECIFIC T-WAVE ABNORMALITY ABNORMAL RHYTHM ECG No previous ECG available for comparison F CONSULTANT Procedure Note Simone Lamar MD - 09/23/2024 [facility] [address] [place] [address] Test Date: 2024-09-22 Pat Name: HERSON REYES Department: 41 Room: EXAM23 Gender: Female Supervisor Lathing: : 1985 Requested By: SALAS LINDSAY Order Number: [id number] Reading MD: Simone Lamar Measurements Intervals [place] Rate: 103 P: 71 WA: 133 QRS: 60 QRSD: 78 T: 16 QT: 328 QTc: 431 Interpretive Statements SINUS TACHYCARDIA POSSIBLE LEFT ATRIAL ENLARGEMENT [-0.1mV P-WAVE IN V1/V2] NONSPECIFIC T-WAVE ABNORMALITY ABNORMAL RHYTHM ECG No previous ECG available for comparison F CONSULTANT us Salas CANCINO ECG ORDERABLES Final Resu lt [facility] * EKG Reading (09/22/2024 5:34 PM STAFF CONSULTANT) Sahil Pruitt, - 09/22/2024 5:34 PM STAFF CONSULTANT Sahil Maria, 09/22/2024 9:01 PM EKG Reading Date/Time: 09/22/2024 5:34 PM Performed by: Sahil Maria DO Authorized by: Sahil Maria DO Interpreted by ED physician Rhythm: sinus tachycardia Rate: tachycardic BPM: 103 QRS axis: normal Conduction: conduction normal Q waves: V1 and V2 Clinical impression: abnormal ECG Sahil Maria DO [facility] Final Result * INFLUENZA A & B, RAPID (09/22/2024 5:05 PM STAFF CONSULTANT) SPECIMEN TYPE NASAL 09/22/2024 5:10 PM STAFF CONSULTANT [facility] INFLUENZA A NEGATIVE NEGATIVE 09/22/2024 5:29 PM STAFF CONSULTANT [facility] INFLUENZA B NEGATIVE NEGATIVE 09/22/2024 5:29 PM STAFF CONSULTANT [facility] Comment: Interpretation: Negative for Influenza A [...] NASAL STRUCTURE / Unknown 09/22/2024 5:05 PM STAFF CONSULTANT Salas CANCINO MICROBIOLOGY - GENERAL ORD ERABLES Final Result [facility] [address] [place] [address], [place] [phone] * (ABNORMAL) URINALYSIS, AUTO, COMPLETE (09/22/2024 5:05 PM STAFF CONSULTANT) SPECIMEN TYPE URINE CLEAN CATCH 09/22/2024 5:00 PM STAFF CONSULTANT [facility] COLOR (U) COLORLESS 09/22/2024 5:14 PM STAFF CONSULTANT [facility] TRANSPARENCY CLEAR 09/22/2024 5:14 PM [facility] SPECIFIC GRAVITY (U) 1.005 1.001 - 1.030 09/22/2024 5:14 PM [facility] U PH 5.5 5.0 - 9.0 09/22/2024 5:14 PM [facility] LEUKOCYTES (U) NEGATIVE NEGATIVE 09/22/2024 5:14 PM [facility] NITRITES NEGATIVE NEGATIVE 09/22/2024 5:14 PM [facility] PROTEIN RANDOM (U) NEGATIVE <30 MG/DL 09/22/2024 5:14 PM [facility] GLUCOSE (U) NORMAL NORMAL MG/DL 09/22/2024 5:14 PM [facility] KETONES MG/DL (U) 10(A) NEGATIVE MG/DL 09/22/2024 5:14 PM [facility] UROBILINOGEN NORMAL NORMAL MG/DL 09/22/2024 5:14 PM [facility] BILIRUBIN (U) NEGATIVE NEGATIVE MG/DL 09/22/2024 5:14 PM [facility] BLOOD (U) NEGATIVE NEGATIVE 09/22/2024 5:14 PM [facility] WBC/HPF <1 <6 /HPF 09/22/2024 5:14 PM [facility] RBC/HPF <1 <6 /HPF 09/22/2024 5:14 PM [facility] BACTERIA (U) RARE(A) NONE /HPF 09/22/2024 5:14 PM [facility] SQUAMOUS EPITHELIALS RARE /HPF 09/22/2024 5:14 PM [facility] URINE SPECIMEN OBTAINED BY CLEAN CATCH PROCEDURE / Unknown 09/22/2024 5:05 PM STAFF CONSULTANT aSlas CANCINO URINE ORDERABLES Final Res ult [facility] [address] [place] [address], [place] [phone] * TSH W/REFLEX (09/22/2024 4:59 PM STAFF CONSULTANT) Pathologist [facility] TSH 0.733 0.358 - 3.74 uIU/ML 09/22/2024 6:44 PM STAFF CONSULTANT [facility] Comment: HIGH DOSES OF BIOTIN MAY INTERFERE WITH THIS TEST RESULT. CORRELATION TO CLINICAL HISTORY AND PRESENTATION RECOMMENDED. FREE T4 NOT INDICATED 09/22/2024 4:59 PM STAFF CONSULTANT Sahil Maria DO LABORATORY Final Res ult Performing Organization Address [facility]/ZIP Co de Phone Number [facility] [address] [place] [address], [place] [phone] * (ABNORMAL) COMPREHENSIVE METABOLIC PANEL (09/22/2024 4:59 PM STAFF CONSULTANT) Pathologist [facility] GLUCOSE 89 70 - 99 MG/DL 09/22/2024 5:37 PM STAFF CONSULTANT [facility] BUN 11 7 - 18 MG/DL 09/22/2024 5:37 PM STAFF CONSULTANT [facility] CREATININE S/P/B 0.97 0.55 - 1.02 MG/DL 09/22/2024 5:37 PM STAFF CONSULTANT [facility] SODIUM S/P/B 135(L) 136 - 145 MMOL/L 09/22/2024 5:37 PM STAFF CONSULTANT [facility] POTASSIUM S/P/B 3.7 3.5 - 5.1 MMOL/L 09/22/2024 5:37 PM STAFF CONSULTANT [facility] CHLORIDE S/P/B 106 97 - 115 MMOL/L 09/22/2024 5:37 PM [facility] CO2 26.2 21 - 32 MMOL/L 09/22/2024 5:37 PM [facility] CALCIUM S/P/B 9.1 8.5 - 10.1 MG/DL 09/22/2024 5:37 PM [facility] BILIRUBIN TOTAL S/P/B 0.4 0.2 - 1.2 MG/DL 09/22/2024 5:37 PM [facility] Comment: THIS ASSAY IS NOT RECOMMENDED FOR PATIENTS UNDERGOING TREATMENT WITH ELTROMBOPAG DUE TO THE POTENTIAL FOR FALSELY ELEVATED RESULTS. TOTAL PROTEIN S/P/B 7.8 6.4 - 8.2 G/DL 09/22/2024 5:37 PM [facility] ALBUMIN S/P/B 4.0 3.4 - 5.0 G/DL 09/22/2024 5:37 PM [facility] AST 45(H) 15 - 37 U/L 09/22/2024 5:37 PM [facility] ALT 74(H) 14 - 55 U/L 09/22/2024 5:37 PM [facility] ALKALINE PHOSPHATASE S/P/B 55 50 - 136 U/L 09/22/2024 5:37 PM [facility] ANION GAP 2.8 2 - 10 MMOL/L 09/22/2024 5:37 PM [facility] BUN CREATININE RATIO 11.4 6 - 26 09/22/2024 5:37 PM [facility] A/G RATIO 1.1 1.0 - 2.0 RATIO 09/22/2024 5:37 PM [facility] GFR ESTIMATE 76(L) >90 ML/MIN/1.7 3 M2 09/22/2024 5:37 PM [facility] Comment: NOTE: eGFR is not calculated for patients <18 years of age or gender unknown. This is an estimated GFR calculation using the new CKD EPI creatinine equation without race and so does not require a correction factor for race. This estimated GFR should not be used for calculating drug doses. 09/22/2024 4:59 PM STAFF CONSULTANT Salas Lindsay PA LABORATORY Final Resu lt [facility] [address] [place] [address], [place] [phone] * CHORIONIC GONADOTROPIN HCG QL (09/22/2024 4:59 PM STAFF CONSULTANT) Pathologist [facility] PREG SCREEN-SERUM NEGATIVE 09/22/2024 6:28 PM STAFF CONSULTANT [facility] 09/22/2024 4:59 PM STAFF CONSULTANT Sahil Maria DO LABORATORY Final Res ult Performing Organization Address City/[facility]/ZIP Co de Phone Number [facility] [address] [place] [address], [place] [phone] * (ABNORMAL) CBC W/DIFF AUTOMATED (09/22/2024 4:59 PM STAFF CONSULTANT) Pathologist [facility] WBC 6.41 4.5 - 11.0 x10'3/uL 09/22/2024 5:21 PM STAFF CONSULTANT [facility] RBC 4.35 4.20 - 5.40 x10'6/uL 09/22/2024 5:21 PM STAFF CONSULTANT [facility] HGB 13.5 12.0 - 16.0 G/DL 09/22/2024 5:21 PM STAFF CONSULTANT [facility] HCT 40.7 38.0 - 48.0 % 09/22/2024 5:21 PM [facility] MCV 93.6 81.0 - 99.0 FL 09/22/2024 5:21 PM [facility] MCH 31.0 27.0 - 31.0 PG 09/22/2024 5:21 PM [facility] MCHC 33.2 32.0 - 36.0 G/DL 09/22/2024 5:21 PM [facility] RDW 12.1 11.5 - 14.5 % 09/22/2024 5:21 PM [facility] PLT 254 130 - 400 x10'3/uL 09/22/2024 5:21 PM [facility] MPV 9.6 9.3 - 12.2 FL 09/22/2024 5:21 PM [facility] DIFFERENTIAL TYPE MANUAL DIFFERENTIAL 09/22/2024 5:48 PM [facility] SEG NEUTROPHILS 85 % 5:48 PM [facility] LYMPHOCYTES 6 % 09/22/2024 5:48 PM [facility] MONOCYTES 7 % 09/22/2024 5:48 PM [facility] EOSINOPHILS 1 % 09/22/2024 5:48 PM [facility] BASOPHILS 1 % 09/22/2024 5:48 PM [facility] ABS. NEUTROPHILS 5.45 1.80 - 7.70 x10'3/uL 09/22/2024 5:48 PM [facility] ABS. LYMPHOCYTES 0.38(L) 1.00 - 4.80 x10'3/uL 09/22/2024 5:48 PM [facility] ABS. MONOCYTES 0.45 0.24 - 0.86 x10'3/uL 09/22/2024 5:48 PM STAFF CONSULTANT [facility] ABS. EOSINOPHILS 0.06 0.04 - 0.36 x10'3/uL 09/22/2024 5:48 PM STAFF CONSULTANT [facility] ABS. BASOPHILS 0.06 0.01 - 0.08 x10'3/uL 09/22/2024 5:48 PM STAFF CONSULTANT [facility] RBC MORPHOLOGY RBC MORPHOLOGY APPEARS NORMAL. SLIDE REVIEWED. 09/22/2024 5:48 PM STAFF CONSULTANT [facility] PLT EST. ADEQUATE 09/22/2024 5:48 PM STAFF CONSULTANT [facility] 09/22/2024 4:59 PM STAFF CONSULTANT Salas CANCINO LABORATORY Final Resu lt Performing Organization Address City/[facility]/ZIP Co de Phone Number [facility] [address] [place] [phone], * TROPONIN, QUANT (09/22/2024 4:59 PM STAFF CONSULTANT) Pathologist [facility] TROPONIN I HIGH SENSITIVITY <3 <54 ng/L 09/22/2024 6:44 PM STAFF CONSULTANT [facility] Comment: HIGH DOSES OF BIOTIN, TROPONIN-SPECIFIC AUTOANTIBODIES, AND ANTIBODY THERAPY CONTAINING HAMA MAY INTERFERE WITH THIS TEST RESULT. CORRELATION TO CLINICAL HISTORY AND PRESENTATION RECOMMENDED. 09/22/2024 4:59 PM STAFF CONSULTANT Sahil Maria DO LABORATORY Final Res ult [facility] [address] [place] [id number], * MAGNESIUM (09/22/2024 4:59 PM STAFF CONSULTANT) MAGNESIUM 1.9 1.8 - 2.4 MG/DL 09/22/2024 6:44 PM STAFF CONSULTANT [facility] 09/22/2024 4:59 PM STAFF CONSULTANT Sahil Maria DO LABORATORY Final Res ult [facility] [address] [place] [address], * XR CHEST PA OR AP 1V (09/22/2024 4:23 PM STAFF CONSULTANT) Anatomical Region Laterality Modality Chest Radiographic Chetna ging 09/22/2024 4:24 PM STAFF CONSULTANT Impressions 09/22/2024 4:30 PM STAFF CONSULTANT Impression: No acute findings. Referred By: Interpreted By: Ray Forbes MD, 09/22/2024 4:24 PM Narrative 09/22/2024 4:30 PM STAFF CONSULTANT [address] [address] Examination: Chest 1 view portable History: Cough, chills DATE/TIME: 09/22/2024 4:00 PM Comparison: March 21, 2020 Technique: AP upright portable view of the chest was obtained. Findings: Heart size, mediastinal contours and pulmonary vasculature are within normal limits. No pulmonary consolidation, pleural effusion or pneumothorax. No acute osseous abnormality. Procedure Note Rya Forbes MD - 09/22/[address] [address] Examination: Chest 1 view portable History: Cough, [...] CT HEAD WO CON (09/22/2024 4:10 PM STAFF CONSULTANT) Anatomical Region Laterality Modality Head Computed Tomogra phy 09/22/2024 4:14 PM STAFF CONSULTANT Impressions 09/22/2024 4:22 PM STAFF CONSULTANT IMPRESSION: No definite CT evidence for acute intracranial abnormality. Please note that CT has limited sensitivity for the detection of acute ischemia. Referred By: Interpreted By: Ray Forbes MD, 09/22/2024 4:14 PM Narrative 09/22/2024 4:22 PM STAFF CONSULTANT [place] [address] EXAMINATION: CT of the head CLINICAL HISTORY: [...] Procedure Note Ray Forbes MD - 09/22/2024 [address] [place], [place] [address] EXAMINATION: CT of the head CLINICAL HISTORY: [...] HEPATITIS C AB NON-REACTI VE NON-REACT DANIEL [facility] SIGNAL TO CUTOFF 0.01 <[address] [facility] Comment: HCV antibody was non-reactive. There is no laboratory evidence of HCV infection. In most cases, no further action is required. However, if recent HCV exposure is suspected, a test for HCV RNA (test code 96005) is suggested. For additional information please refer to http://education.Gtxh.[employer]/faq/FHZ36z2 (This link is being provided for informational/ educational purposes only.) 05/07/2022 7:53 AM CDT 05/08/2022 7:40 AM CDT Charlie Lopez DO LABORATORY Final Re sult [facility] [id number] [address] [phone] from Last 3 Months or Most Recently Relevant to Health Maintenance Insurance [employer] Care Teams Argon Tester Relationship Specialty Start Date End Date Charlie Lopez DO [address] [place] [id number] PCP - General FAMILY PRACTICE 03/17/19
== END 2024-11-04 14:25 | disposition home or self-care (01) ==
LOC: CHSIMG 14:24
PROVIDERS: PCP Student in an Organized Health Care Education/Training Program; Visit Provider Student in an Organized Health Care Education/Training Program
DX: Z12.31 Encounter for screening mammogram for malignant neoplasm of breast (principal)
CPT/HCPCS: 77063; 77067